=== PATIENT | male | born 1955 | race Caucasian/White ===

== ENCOUNTER 2021-02-13 14:25 | Emergency (ER) | payer OTHER, MEDICARE, SELFPAY ==
--- NOTE | ~2021-02-13 | XR_ITS ---
EXAMINATION: XR HIP, LEFT CLINICAL INFORMATION: Left hip pain. COMPARISON: None TECHNIQUE: Three views of the left hip. FINDINGS: No radiographic evidence of acute fracture subluxation. Degenerative changes with mild joint space narrowing and small marginal osteophytes. Vascular calcifications. XR/XR hip LT w PEL1V IMPRESSION: Mild osteoarthritis of the left hip without radiographic evidence of acute fracture or subluxation.
[2021-02-13 15:25] VITALS: BP 146/66; PULSE 61; RESP 20; TEMP 36.8; O2SAT 94; BMI 33.4
--- NOTE | 2021-02-13 16:03 | ED.EXTPRO ---
HPI - Extremity Problem General Chief complaint: Extremity Injury, Lower Stated complaint: L HIP INJ Time Seen by Provider: 02/13/21 15:32 Source: patient Mode of arrival: ambulatory Limitations: no limitations History of Present Illness HPI Narrative: moving things in house c/o L hip today no falls can ambulate but hurts - did not feel a pop Complaint: extremity pain Onset (ago): day(s) (1) Pain Consistency: constant Location: left and lower extremity (hip) Quality: aching Relieving factors: nothing Exacerbating factors: walking Associated symptoms: denies other symptoms Context: other (lifting when moving) Related Data Allergies Allergy/AdvReac Type Severity Reaction Status Date / Time No Known Allergies Allergy Verified 02/13/21 15:23 Review of Systems Review of Systems: Constitutional : No Fever, No Chills\ Cardiovascular : No Chest Pain, No SOB Respiratory : No Cough, No Dyspnea Gastrointestinal : No Nausea, No Vomiting, No Diarrhea, No abdominal Pain Genitourinary : No Dysuria, No Hematuria Musculoskeletal : positive joint pain, No Myalgias, No Joint Swelling Skin : No Skin lacerations, No rash Neuro : No Weakness, No Numbness PMFSH Past Medical History Attestation statement: The following information was validated with the patient. Medical History Cholecystectomy planned Diabetes HTN (hypertension) Social History Social History Smoking Status: Never smoker Advance Directives: No Advance Directives Information Provided: No Physical Exam Vital Signs: Vital Signs: Last Vital Signs Temp 98.2 F 02/13/21 15:25 Pulse 61 02/13/21 15:25 Resp 20 02/13/21 15:25 BP 146/66 H 02/13/21 15:25 Pulse Ox 94 02/13/21 15:25 Body Mass Index 33.4 Appearance: Alert. Oriented X3. No acute distress. Eyes: Pupils equal, round and reactive to light. ENT: Atraumatic Neck: Normal inspection. Neck supple. CVS: Pulses normal. Respiratory: No respiratory distress. Abdomen: Soft and non-tender. Skin: Skin warm and dry. Normal skin color. Extremities: No lower extremity edema. L hip ttp but distal NV intact, walks steady gait with cane, some limp Neuro: Oriented X 3. No motor deficit. No sensory deficit. MDM - Extremity (Nontraumatic) MDM Narrative Medical decision making narrative: 65 yo male with HTN, DM no AC therapy c/o L hip pain since trying to move things yesterday no back pain, NV intact, no falls, did not feel a pop - has a cane, can bear weight, offered lidocaine patches and flexeril he declines but will take toradol shot Discharge Plan Discharge Clinical Impression: Strain of left hip Qualifiers: Encounter type: initial encounter Qualified Code(s): S76.012A - Strain of muscle, fascia and tendon of left hip, initial encounter Patient Disposition: Home, Self-Care Instructions: Hip Pain (ED) Additional Instructions: return to ED for any worsening symptoms or concerns use cane for comfort, if this continues please call your primary care doctor for physical therapy
[2021-02-13 16:20] VITALS: BP 115/56; PULSE 56; RESP 18; TEMP 36.8; O2SAT 95
[2021-02-13] MEDS: Ketorolac Tromethamine 60 MG/2 ML VIAL IM (16:30)
== END 2021-02-13 16:37 | disposition home or self-care (01) ==
PROVIDERS: Emergency Provider Emergency Medicine; PCP Physician Assistant
DX: S76.012A Strain of muscle, fascia and tendon of left hip, initial encounter (principal); M25.552 Pain in left hip; X58.XXXA Exposure to other specified factors, initial encounter; Y93.9 Activity, unspecified; Y92.9 Unspecified place or not applicable; Y99.9 Unspecified external cause status
CPT/HCPCS: 73502; 90471; 96372; 99284; J1885

== ENCOUNTER 2021-04-19 10:47 | Emergency (ER) | payer OTHER, SELFPAY ==
--- NOTE | ~2021-04-19 | XR_ITS ---
EXAMINATION: XR RIBS, RIGHT CLINICAL INFORMATION: Injury COMPARISON: None TECHNIQUE: PA view of the chest and 4 views of the right ribs FINDINGS: Low lung volumes. Lungs are clear. No consolidation, pneumothorax, or pleural effusion. The cardiomediastinal silhouette and pulmonary vasculature are normal. Cholecystectomy clips in the right upper quadrant. Osseous structures are unremarkable. Ribs are intact. No fractures are identified. XR/XR ribs RT min 3V w CXR1V IMPRESSION: No acute cardiopulmonary process. Low lung volumes. No displaced rib fractures appreciated.
[2021-04-19 11:09] VITALS: BP 131/73; PULSE 94; RESP 18; TEMP 37.1; O2SAT 95; BMI 31.9
--- NOTE | 2021-04-19 12:05 | ED_ITS ---
HPI - General Adult General Chief complaint: General Medical Stated complaint: FALL Time Seen by Provider: 04/19/21 12:05 History of Present Illness HPI narrative: patient complains of pain to the right ribs worse with movement after of fall injury several days ago when he slipped and hit the right rib area on the edge of the tub, no other injury, no headache no head injury no neck pain no shortness of breath no difficulty breathing no back pain Related Data Allergies Allergy/AdvReac Type Severity Reaction Status Date / Time No Known Allergies Allergy Verified 02/13/21 15:23 Review of Systems Review of Systems: Positive for right rib pain Negatives are no fever no chills no dizziness no weakness no fainting no feeling faint no preceding lightheadedness no headache no head injury no neck pain no numbness weakness or tingling no shortness of breath no lacerations no other joint pains Yes all other systems are reviewed and are negative [facility] Past Medical History Source: nursing notes reviewed Medical History Cholecystectomy planned Diabetes HTN (hypertension) Social History Social History Advance Directives: Yes Advance Directives Information Provided: No Advance Directives on File: No Physical Exam Vital Signs: Vital Signs: Last Vital Signs Temp 98.8 F 04/19/21 11:09 Pulse 94 04/19/21 11:09 Resp 18 04/19/21 11:09 BP 131/73 04/19/21 11:09 Pulse Ox 95 04/19/21 11:09 Body Mass Index 31.9 General appearance no acute distress Head is normocephalic atraumatic Neck is supple and nontender The back is supple and nontender Respiratory no acute distress Lungs are clear to auscultation bilateral The right mid lateral and anterior rib area has tenderness, there is some pain when he takes a deep breath and moves in certain ways, the skin is normal there is no ecchymosis and no lacerations Extremities is full range of motion x4 Neuro no focal motor sensory deficits Course Course Course Narrative: X-ray of right ribs and chest showed no pneumothorax, no obvious displaced rib fractures and patient is well-appearing and is discharged Discharge Plan Discharge Clinical Impression: Fracture, rib Patient Disposition: Home, Self-Care Additional Instructions: x-ray did not show any obvious broken ribs, but x-ray can miss many rib fractures or cracks As pain has not improved after 5 or 6 days it is possible that you have a cracked rib not seen on x-ray Use Tylenol as needed Return to ER any time for difficulty breathing, any worse condition any worse concern Follow with primary doctor next week if not improved Interventions: ED Discharge Assessment Last Done: 04/19/21 13:26 Discharge Date/Time: 04/19/21 13:26
== END 2021-04-19 13:26 | disposition home or self-care (01) ==
PROVIDERS: Emergency Provider Emergency Medicine; PCP Physician Assistant
DX: S22.31XA Fracture of one rib, right side, initial encounter for closed fracture (principal); W18.2XXA Fall in (into) shower or empty bathtub, initial encounter; I10 Essential (primary) hypertension; E11.9 Type 2 diabetes mellitus without complications; Y93.9 Activity, unspecified; Y92.9 Unspecified place or not applicable; Y99.9 Unspecified external cause status
CPT/HCPCS: 71101; 99283

== ENCOUNTER 2022-02-05 12:05 | Emergency (ER) | payer OTHER, SELFPAY ==
[2022-02-05 12:26] VITALS: BP 122/100; PULSE 66; RESP 20; TEMP 36.3; O2SAT 96; BMI 34.0
[2022-02-05] MEDS: diazePAM 2 MG TABLET PO (14:25)
--- NOTE | 2022-02-05 14:54 | ED_ITS ---
HPI - Neck Pain/Injury General Chief Complaint: Neck Pain/Injury Stated Complaint: Neck pain Time Seen by Provider: 02/05/22 13:39 Source: patient Mode of arrival: ambulatory History of Present Illness HPI Narrative: 66-year-old male with past medical history of diabetes, hypertension, presenting to the ED complaining of right-sided neck pain radiating to right ear, right shoulder and right upper back x3 days s/p sleeping wrong and waking with pain. Reports pain worse with arm movement and neck movement. Reports associated tingling down arm. Denies known injury, trauma, fall, headache, lightheadedness/dizziness, weakness, CP/SOB. Took ibuprofen with symptomatic improvement MD complaint: neck pain Onset (ago): day(s) Related Data Previous Rx's Medication Instructions Recorded acetaminophen 500 mg tablet 500 mg PO Q6H PRN #20 tab 02/05/22 (Tylenol Extra Strength) cyclobenzaprine 5 mg tablet 5 mg PO Q8H PRN 5 Days #14 tab 02/05/22 lidocaine 5 % topical patch 1 patch TOPICAL DAILY PRN #30 ea 02/05/22 (Lidoderm) MDD remove after 12 hours naproxen 500 mg tablet 500 mg PO BID PRN 10 Days #20 tab 02/05/22 Allergies Allergy/AdvReac Type Severity Reaction Status Date / Time No Known Allergies Allergy Verified 02/13/21 15:23 Review of Systems Review of Systems: Constitutional: No Fever, No Chills, No Fatigue, No Malaise ENT/Mouth: No Ear Pain, No Nasal Congestion, No Sinus Pain, No sore throat, No Rhinorrhea, No Swallowing Difficulty Eyes: No Eye Pain, No Swelling, No Redness, No Vision Changes Cardiovascular: No Chest Pain, No SOB, No Edema, No Palpitations Respiratory: No Cough, No Sputum, No Dyspnea Gastrointestinal: No Nausea, No Vomiting, No Diarrhea, No Constipation, No Abdominal pain Genitourinary: No irregular bleeding, No Dysuria, No Urinary Frequency, No He maturia, No Urinary Incontinence, No Flank Pain Musculoskeletal: + neck/back pain, No Myalgias, No Joint Swelling Skin: No Skin Lesions, No rash Neuro: No Weakness, No Numbness, + Paresthesias, No Dizziness, No Headache Yes all other systems are reviewed and are negative Neurologic: Denies Sensory deficit (Neuro) [facility] Past Medical History Attestation statement: The following information was validated with the patient. Medical History Cholecystectomy planned Diabetes HTN (hypertension) Social History Social History Advance Directives: No Advance Directives Information Provided: No Physical Exam Vital Signs: Vital Signs: Last Vital Signs Temp 97.4 F 02/05/22 12:26 Pulse 66 02/05/22 12:26 Resp 20 02/05/22 12:26 BP 122/100 H 02/05/22 12:26 Pulse Ox 96 02/05/22 12:26 BMI result Body Mass Index 34.0 Const: General: cooperative, healthy appearing, no acute distress, alert and awake Orientation/consciousness: patient oriented x3 Limitations: no limitations HEENT: Head: Yes normal to inspection and Yes atraumatic Ears: hearing grossly normal bilaterally, external ears normal, TM's normal bilaterally and mastoids normal General nose exam: Normal external nose present Face and sinus: Yes normal facial exam Eyes: General: appearance normal, both eyes and all related structures EOM: EOMs intact bilaterally Neck: Other: No midline cervical spine tenderness/step-off or deformity. Right-sided paraspinal and right-sided trapezius muscle tenderness to palpation reproducing subjective complaint. Mastoid WNL. No mastoid tenderness. Right TM WNL. Pain with rightward movement of neck/limited from pain Neck: Yes normal visual inspection, Yes no lymphadenopathy, Yes no meningeal signs and No anterior neck swelling Resp: Effort & Inspection: normal respiratory effort and no respiratory distress Cardio: Rate: regular rate Peripheral pulses: radial pulses present : General: Yes no CVA tenderness Back/Spine/Pelvis: Other: No midline thoracic/lumbar spinous tenderness/step-off or deformity, + mild tenderness to right subscapular area Back: no CVA tenderness Skin: Rashes: no rashes Wounds: no wounds Neuro: Other: Ambulating at baseline with steady stable gait with cane. Strength intact throughout General: patient oriented x3, gait normal, tone normal, moves all extremities and no meningeal signs Gait exam (Neuro): Normal gait present Motor exam (neuro): 5/5 motor strength present throughout Sensory Exam: No Sensory deficit (Neuro) Extrem: General: Yes normal to inspection Course Course Course Narrative: BP improved with pain control MDM - Neck Pain/Injury MDM Narrative Medical decision making narrative: 66-year-old male with past medical history of diabetes, hypertension, presenting to the ED complaining of right-sided neck pain radiating to right ear, right shoulder and right upper back x3 days. On exam initially hypertensive likely from pain. NAD/nontoxic, no midline spinous tenderness throughout, physical e xam as above consistent with cervical strain/MSK pain/spasming. Low suspicion for ACS, cervical dissection, cord compression Plan: PO Valium, discussed worrisome signs and symptoms and strict return precautions Medical Records Attestation: I reviewed the patient's medical records. Lab Data Attestation: I reviewed the patient's lab results. Discharge Plan Discharge Clinical Impression: Strain of neck muscle Patient Disposition: Home, Self-Care Instructions: Cervical Strain (DC) Additional Instructions: Your pain is likely musculoskeletal Flexeril is a muscle relaxer, take at night as it makes you drowsy, do not drive, drink alcohol, or operate machinery while taking it Naproxen as an anti-inflammatory / pain medication, take with food Lidoderm patches are numbing patches, apply to painful area In addition take Tylenol at home If symptoms persist or worsen, pain becomes unbearable, you developed urinary retention or incontinence, or weakness return to the ED Prescriptions: New acetaminophen [Tylenol Extra Strength] 500 mg tablet 500 mg PO Q6H PRN (Reason: pain or fever) Qty: 20 0RF lidocaine [Lidoderm] 5 % adhesive patch,medicated 1 patch topical DAILY MDD remove after 12 hours PRN (Reason: pain) Qty: 30 0RF Rx Instructions: leave on most painful area for up to 12 hrs naproxen 500 mg tablet 500 mg PO BID PRN (Reason: pain) 10 Days Qty: 20 0RF cyclobenzaprine 5 mg tablet 5 mg PO Q8H PRN (Reason: pain (scale score 7-10)) 5 Days Qty: 14 0RF Referrals: Sulaiman Chan PA [Primary Care Provider] - 3 days
[2022-02-05 14:57] VITALS: BP 126/62
== END 2022-02-05 15:03 | disposition home or self-care (01) ==
PROVIDERS: Emergency Provider Emergency Medicine; PCP Physician Assistant
DX: S16.1XXA Strain of muscle, fascia and tendon at neck level, initial encounter (principal); M54.2 Cervicalgia; X58.XXXA Exposure to other specified factors, initial encounter; Y93.9 Activity, unspecified; Y92.9 Unspecified place or not applicable; Y99.9 Unspecified external cause status; Z79.899 Other long term (current) drug therapy
CPT/HCPCS: 99283; 99284

== ENCOUNTER 2022-03-09 12:05 | Inpatient (IN) | payer OTHER, SELFPAY ==
[2022-03-09] VITALS (7 sets, daily range): BP systolic 91–168; BP diastolic 59–111; PULSE 83–130; RESP 12–20; TEMP 36.8–37.3; O2SAT 94–96; BMI 33.3
--- NOTE | ~2022-03-09 | MR_ITS ---
EXAMINATION: MR ABDOMEN WITHOUT AND WITH CONTRAST CLINICAL INFORMATION: Liver lesion COMPARISON: CT abdomen pelvis 03/09/2022 TECHNIQUE: MRI of the abdomen before and after the IV administration of 10 mL of Gadavist was obtained using routine sequences. FINDINGS: LUNG BASES: The visualized lung bases are unremarkable. KIDNEYS AND URETERS: Unremarkable. GALLBLADDER: Surgically absent. LIVER AND BILIARY TREE: Cirrhotic morphology of the liver. No LI RADS 5 observations. Trace central intrahepatic biliary duct dilatation status post cholecystectomy with the common bile duct measuring within normal limits at 9 mm. PANCREAS: Unremarkable SPLEEN: Spleen is mildly enlarged measuring 13 cm in span. ADRENAL GLANDS: Unremarkable GASTROINTESTINAL TRACT: Unremarkable. LYMPH NODES: No lymphadenopathy. VASCULAR: Conventional hepatic arterial anatomy. Portal vein is patent. ABDOMINAL WALL: Unremarkable. OSSEOUS STRUCTURES: Unremarkable. MR/MR abdomen wo/w con IMPRESSION: Cirrhotic morphology of the liver. No LI RADS 5 observations. Sequelae of portal hypertension including mild hepatomegaly. Trace central intrahepatic biliary duct dilatation status post cholecystectomy, with the common bile duct measuring within normal limits.
--- NOTE | ~2022-03-09 | CT_ITS ---
EXAMINATION: CT ABDOMEN AND PELVIS WITHOUT CONTRAST CLINICAL INFORMATION: Diffuse abdominal pain, nausea and vomiting. COMPARISON: None. TECHNIQUE: Multidetector volumetric imaging was performed from the superior aspect of the liver through the pubic symphysis. Sagittal and coronal reformatted images were obtained on the technologist's workstation. This CT examination was performed using dose optimization techniques as appropriate, variously including the following: *Automated exposure control *Adjustment of mA and/or kV according to patient size (this includes techniques or standardized protocols for targeted exams where dose is matched to indication/reason for exam; i.e. extremities or head) *Use of iterative reconstruction technique DLP: 734 mGy-cm FINDINGS: LUNG BASES: No focal consolidation or pleural effusion. Coronary calcifications. LIVER, GALLBLADDER, AND BILIARY TREE: Cirrhotic liver with a nodular contour and nonspecific subcapsular retraction on image 16 of series 3. Evaluation for HCC is nondiagnostic in the absence of intravenous contrast. Cholecystectomy. The common bile duct measures 0.6 cm in maximum diameter. There is no intrahepatic biliary ductal dilatation. PANCREAS: Diffusely atrophic. The main pancreatic duct is nondilated. There is no peripancreatic free fluid or fat stranding. SPLEEN: Splenomegaly measuring 17.7 cm in maximum anteroposterior dimension. There is a 2.8 cm posterior splenule. ADRENAL GLANDS: Unremarkable. KIDNEYS AND URETERS: Hyperdense 1.1 cm lesion in the lateral surface of the midpole of the right kidney (3:34). No hydronephrosis or nephrolithiasis. BLADDER: Unremarkable. GASTROINTESTINAL TRACT: The stomach and the small bowel are nondilated. Normal appendix. Colonic diverticulosis. No evidence of acute diverticulitis or colitis. No bowel obstruction. ABDOMINAL WALL: No significant hernia is appreciated. LYMPH NODES: No lymphadenopathy by size criteria. VASCULAR: Atherosclerotic disease. Abdominal aorta is of normal diameter. Recanalized umbilical vein. PELVIC VISCERA: Unremarkable. OSSEOUS STRUCTURES: No acute or aggressive appearing osseous abnormalities. Multilevel thoracolumbar spondylos with prominent Schmorl's nodules. CT/CT abdomen pelvis wo con IMPRESSION: Cirrhotic liver with portal hypertension. There is a nonspecific area of capsular retraction in the right hepatic lobe. Recommend evaluation with an MR of the abdomen with and without intravenous contrast. Hyperdense lesion in the right kidney measuring 1.1 cm, likely represents a hemorrhagic or proteinaceous cyst. This could be further characterized with a renal ultrasound or the above recommended MRI. Diverticulosis but no evidence of acute diverticulitis. No bowel obstruction.
[2022-03-09 12:34] LABS: Glucose, Whole Blood 317 mg/dL (60-115)
--- NOTE | 2022-03-09 14:00 | ECG_ITS ---
Test Reason : TACHYCARDIA, ABD PAIN Blood Pressure : / mmHG Vent. Rate : 120 BPM Atrial Rate : 000 BPM P-R Int : 000 ms QRS Dur : 084 ms QT Int : 312 ms P-R-T Axes : 000 -29 021 degrees QTc Int : 440 ms Atrial fibrillation with rapid ventricular response Moderate voltage criteria for LVH, may be normal variant ( R in aVL , Verdon product ) Abnormal ECG No previous ECGs available Referred By: Magda De Leon Electronically Signed By:Alonzo Michelle
[2022-03-09] MEDS: Morphine Sulfate 4 MG/ML CARTRIDGE IVPUSH ×2 (14:50→20:30)
[2022-03-09] MEDS: 0.9 % Sodium Chloride 1,000 ML 999 ML IV ×2 (14:50→17:46)
[2022-03-09] MEDS: ondansetron HCL 4 MG/2 ML VIAL IVPUSH (14:50)
--- NOTE | 2022-03-09 15:49 | ED.ABDPAIN ---
HPI - Abdominal Pain General Chief Complaint: Abdominal Pain <Magda De LeonDENI - Last Filed: 03/09/22 19:13> Stated Complaint: FLU LIKE SX X'S 4 DAYS,IRREG HR <Magda Baltazar DENI De Leon - Last Filed: 03/09/22 19:13> Time Seen by Provider: 03/09/22 13:04 <Magda Douglasjomar De Leon CNP - Last Filed: 03/09/22 19:13> Source: patient <Magda De LeonDENI - Last Filed: 03/09/22 19:13> Mode of arrival: ambulatory <Magda De LeonDENI - Last Filed: 03/09/22 19:13> Limitations: no limitations <Magda ColoradoDENI pearl - Last Filed: 03/09/22 19:13> History of Present Illness HPI narrative: patient presents to the emergency department for evaluation of abdominal pain and acute on chronic nausea/ vomiting. Patient reports that he has chronic nausea at baseline, with poor p.o. intake, he is being followed by gastro intestinal Dr. Meenu Good from [facility]. reports that he has had multiple endoscopies, swallow studies, motility studies, colonoscopy which have all been unremarkable. He states that 2 weeks ago he was started on a new anti nausea medication, does not know the name of this, but states any time he tries to take the medication he simply throws it up. In addition he is experiencing diffuse abdominal pain. States that his symptoms have been worse over the past couple of days. Had 6 episodes of vomiting last night, does not recall the color, has had 1 episode of vomiting today. Feels he is unable to keep down any oral intake. <Magda Baltazar DENI De Leon - Last Filed: 03/09/22 19:13> Related Data Home Medications: Home Medications Medication Instructions Recorded Confirmed amlodipine 10 mg tablet 10 mg PO DAILY 03/09/22 03/09/22 aripiprazole 2 mg tablet 2 mg PO DAILY 03/09/22 03/09/22 aspirin 81 mg tablet,delayed 81 mg PO DAILY 03/09/22 03/09/22 release atorvastatin 80 mg tablet (Lipitor) 40 mg PO DAILY 03/09/22 03/09/22 buprenorphine 8 mg-naloxone 2 mg 1 tab SUBLINGUAL DAILY 03/09/22 03/09/22 sublingual tablet empagliflozin 25 mg tablet 25 mg PO DAILY 03/09/22 03/09/22 furosemide 20 mg tablet 20 mg PO DAILY 03/09/22 03/09/22 gabapentin 100 mg capsule 100 mg PO DAILY 03/09/22 03/09/22 gabapentin 100 mg capsule 200 mg PO BEDTIME 03/09/22 03/09/22 lactulose 10 gram/15 mL oral 30 ml PO Q8H PRN 03/09/22 03/09/22 solution nadolol 20 mg tablet 20 mg PO DAILY 03/09/22 03/09/22 pantoprazole 40 mg tablet,delayed 40 mg PO BID 03/09/22 03/09/22 release (Protonix) <Magda De Leon CNP - Last Filed: 03/09/22 19:13> Allergies/Adverse Reactions: Allergies Allergy/AdvReac Type Severity Reaction Status Date / Time No Known Allergies Allergy Verified 02/13/21 15:23 <Magda De Leon CNP - Last Filed: 03/09/22 19:13> Review of Systems Review of Systems Constitutional : No Weight loss, No Fever, No Chills ENT/Mouth :? No sore throat, No Rhinorrhea Eyes: No Swelling, No Redness Cardiovascular : No Chest Pain, No SOB, No Edema Respiratory : No Cough, No Sputum, No Wheezing Gastrointestinal : Positive Nausea, Positive Vomiting, no Diarrhea, positive abdominal pain, No Hematochezia, No Melena Genitourinary : No Dysuria, No Urinary Frequency, No Hematuria, No Urgency? Musculoskeletal : No joint pain, No Myalgias, No Joint Swelling Skin : No Skin Lesions, No rash Neuro : No Weakness, No Numbness, No Dizziness, No Headache Psych : No Anxiety/Panic, No Depression Heme/Lymph: No Bruising, No Lymphadenopathy Endocrine : No Polyuria, No Polydipsia <Magda De Leon CNP - Last Filed: 03/09/22 19:13> Yes all other systems are reviewed and are negative <Magda De Leon CNP - Last Filed: 03/09/22 19:13> [facility] Past Medical History Attestation statement: The following information was validated with the patient. <Magda De Leon CNP - Last Filed: 03/09/22 19:13> Source: old records reviewed <Magda De Leon CNP - Last Filed: 03/09/22 19:13> Medical History: Medical History Cholecystectomy planned Diabetes HTN (hypertension) <Magda De Leon CNP - Last Filed: 03/09/22 19:13> Social History Social History: Social History Advance Directives: Yes Advance Directives Information Provided: No Advance Directives on File: No <Magda De Leon CNP - Last Filed: 03/09/22 19:13> Physical Exam ED Vital Signs: Vital Signs - 24 hr 03/09/22 12:16 03/09/22 12:24 03/09/22 16:04 Temperature 98.5 F 99.2 F 99.1 F Pulse Rate 129 H 109 H 124 H Respiratory Rate 20 17 15 Blood Pressure 132/85 123/97 H 91/59 L Pulse Oximetry 96 94 95 03/09/22 18:48 03/09/22 19:33 Temperature 98.3 F Pulse Rate 107 H Respiratory Rate 15 18 Blood Pressure 168/111 H 152/97 H Pulse Oximetry 96 BMI result Body Mass Index 33.3 Vital signs have been reviewed as normal and appeared to be correct. Blood pressure normal.? tachycardia.? Respiration rate normal. Temperature normal.? Oxygen saturation normal. <Magda De Leon CNP - Last Filed: 03/09/22 19:13> Appearance: Alert.?Oriented to person, place and time. No acute distress.?Normal affect. Eyes: Pupils equal, round and reactive to light.? mild yellowing of the sclera ENT: Pharynx normal.?? Neck: Normal inspection.? Neck supple.?? CVS: S1 and S2 are present, pansystolic murmur, tachycardia.? Pulses normal. no JVD?? Respiratory: No respiratory distress.? Lung sounds clear to auscultation bilaterally?? Abdomen: Soft and with diffuse tenderness, notably more tender in the left lower quadrant. Normoactive bowel sounds. No pulsatile mass.?? Skin: Skin warm and dry.? appear slightly jaundiced Extremities: No lower extremity edema.? No calf ttp? Neuro: Moves all extremities spontaneously. Sensation intact bilaterally. No focal neuro deficits. Ambulates with normal steady gait. Pansystolic murmur <Magda De Leon CNP - Last Filed: 03/09/22 19:13> Course Course Course Narrative: patient is a 66-year-old male with a past medical history of hypertension, Type 2 diabetes insulin dependent, chronic nausea, liver disease , states he has a history hepatitis B, he is presenting for evaluation of diffuse abdominal pain and worsening of his chronic nausea. reports being followed by GI dr Meenu Good, and regarding heart murmur, has faculty research assistant through [place] Dr. Baxter, reports he is scheduled to have an echocardiogram March 15, and a nuclear stress test in April. Will obtain CBC to evaluate for leukocytosis/ anemia, CMP and lipase to evaluate for abnormal electrolytes /abnormal renal function/ abnormal hepatic/biliary function, EKG and troponin to evaluate for ischemia/ACS. Urinalysis to evaluate for infection <Magda De Leon CNP - Last Filed: 03/09/22 19:13> Reevaluation(s) Reevaluation #1: CBC reveals a mild leukocytosis 11.8, CMP is overall unremarkable, lipase is normal. urinalysis without sign of infection Troponin 47.7, reviewed EKG at this time shows atrial fibrillation with rapid ventricular response, patient denies any known history of atrial fibrillation in the past. Currently he reports no significant improvement in his symptoms, continues to feel nauseous with vague abdominal pain. Last noted blood pressure at 1600 of 91/59, was not made aware of this previously, current blood pressure 152/112. POC glucose 317, has DM, will obtain acetone, in addition to lactic acid and blood cultures given hypotension and tachycardia, Delta trop ordered for 193, Cardizem 10 mg IV push in addition to 60mg PO, additional saline 1 L IV fluids, CHADS-VASC score of 2. CT of the abdomen reveals a cirrhotic liver with portal hypertension, nonspecific area capsular retraction in the right hepatic lobe with recommendation for MRI of the abdomen with and without IV contrast in addition to a hyperdense lesion in the right kidney which may represent a cyst. <Magda De Leon CNP - Last Filed: 03/09/22 19:13> Time: 17:22 <Magda Baltazar DENI De Leon - Last Filed: 03/09/22 19:13> Reevaluation #2: spoke with hospitalist Dr. Avila for admission to medicine service for new onset atrial fibrillation with RVR, cirrhosis, intractable nausea and vomiting, advises that patient will be seen by night hospitalist. advised ED attending Dr. Baugh about patient as well. Current heart rate at this time in the 80s, appears to remain in atrial fibrillation. Patient updated on plan of care and is agreeable. <Magdaradames De Leon CNP - Last Filed: 03/09/22 19:13> Time: 18:15 <Magdaradames De Leon CNP - Last Filed: 03/09/22 19:13> MDM - Abdominal Pain Medical Records Attestation: I reviewed the patient's medical records. <Magda De Leon CNP - Last Filed: 03/09/22 19:13> Lab Data Attestation: I reviewed the patient's lab results. <Magdaradames De Leon CNP - Last Filed: 03/09/22 19:13> Result diagrams: : 03/09/22 16:31 03/09/22 16:31 <Magdaradames De Leon CNP - Last Filed: 03/09/22 19:13> Labs: Lab Results 03/09/22 03/09/22 03/09/22 Range/Units 12:21 15:36 16:08 WBC (4.8-10.8) X10*3/uL RBC (4.60-5.80) X10*6/uL Hgb (14.0-18.0) g/dl Hct (42.0-52.0) % MCV (80.0-98.0) fL MCH (27.0-33.0) pg MCHC (31.0-36.0) g/dl RDW (11.0-16.0) % Plt Count (160-400) X10*3/uL MPV (9.4-12.4) fL Immature Gran % (Auto) (0.0-0.4) % Neut % (Auto) (45-73) % Lymph % (Auto) (20-40) % Dougherty % (Auto) (2-11) % Eos % (Auto) (0-4) % Baso % (Auto) (0-2) % Lymph # (Auto) (1.2-4.9) X10*3/uL Dougherty # (Auto) (0.1-1.2) X10*3/uL Eos # (Auto) (0.0-0.4) X10*3/uL Baso # (Auto) (0.0-0.2) X10*3/uL Abs Immat Gran (auto) (0.00-0.03) X10*3/uL Absolute Neuts (auto) (2.0-8.3) x10*3/uL Absolute Nucleated RBC (0.0-0.012) X10*3/uL Nucleated RBC % (auto) (0.0-0.2) /100WBC Sodium (135-145) mmol/L Potassium (3.3-5.1) mmol/L Chloride (96-108) mmol/L Carbon Dioxide (22-29) mmol/L Anion Gap (12-20) BUN (9-16) mg/dL Creatinine (0.5-1.4) mg/dL Estim Creat Clear Calc Estimated GFR POC Glucose 317 H (60-115) mg/dL Random Glucose (60-115) mg/dL Lactic Acid (0.5-2.0) mmol/L Calcium (8.4-10.2) mg/dL Magnesium (1.6-2.6) mg/dL Total Bilirubin (0.0-1.0) mg/dL AST (5-37) U/L ALT (0-40) U/L Alkaline Phosphatase (39-117) U/L Troponin I High Sens (<3.5-35.0) ng/L Total Protein (6.5-8.0) g/dL Albumin (3.5-5.0) g/dL Lipase (8-78) U/L Urine Color YELLOW Urine Appearance CLEAR Urine pH 5.5 (5.0-8.0) Ur Specific [place] 1.025 (1.005-1.025) Urine Protein 1+ H (NEG-TRACE) MG/DL Urine Glucose (UA) >=1000 H (NEG) MG/DL Urine Ketones >=80 (NEG) MG/DL Urine Blood TRACE (NEG) Urine Nitrite NEG (NEG) Ur Leukocyte Esterase NEG (NEG) Urine RBC 0-2 (0) /HPF Urine WBC 0-2 (0-4) /HPF Ur Squamous Epith Cells NONE /LPF Urine Bacteria NONE /LPF Acetone, Qual (Negative) COVID-19 (CECIL) Negative (Negative) COVID-19 Clin Com See Note 03/09/22 03/09/22 03/09/22 Range/Units 16:31 16:31 16:31 WBC 11.8 H (4.8-10.8) X10*3/uL RBC 6.09 H (4.60-5.80) X10*6/uL Hgb 16.2 (14.0-18.0) g/dl Hct 49.5 (42.0-52.0) % MCV 81.3 (80.0-98.0) fL MCH 26.6 L (27.0-33.0) pg MCHC 32.7 (31.0-36.0) g/dl RDW 14.2 (11.0-16.0) % Plt Count 188 (160-400) X10*3/uL MPV 9.8 (9.4-12.4) fL Immature Gran % (Auto) 0.3 (0.0-0.4) % Neut % (Auto) 68.8 (45-73) % Lymph % (Auto) 22.6 (20-40) % Dougherty % (Auto) 6.2 (2-11) % Eos % (Auto) 1.9 (0-4) % Baso % (Auto) 0.2 (0-2) % Lymph # (Auto) 2.7 (1.2-4.9) X10*3/uL Dougherty # (Auto) 0.7 (0.1-1.2) X10*3/uL Eos # (Auto) 0.2 (0.0-0.4) X10*3/uL Baso # (Auto) 0.0 (0.0-0.2) X10*3/uL Abs Immat Gran (auto) 0.04 H (0.00-0.03) X10*3/uL Absolute Neuts (auto) 8.1 (2.0-8.3) x10*3/uL Absolute Nucleated RBC 0.000 (0.0-0.012) X10*3/uL Nucleated RBC % (auto) 0.0 (0.0-0.2) /100WBC Sodium 138 (135-145) mmol/L Potassium 4.7 (3.3-5.1) mmol/L Chloride 103 (96-108) mmol/L Carbon Dioxide 25 (22-29) mmol/L Anion Gap 15 (12-20) BUN 12 (9-16) mg/dL Creatinine 0.81 (0.5-1.4) mg/dL Estim Creat Clear Calc 99.7 Estimated GFR > 60 POC Glucose (60-115) mg/dL Random Glucose 295 H (60-115) mg/dL Lactic Acid (0.5-2.0) mmol/L Calcium 9.1 (8.4-10.2) mg/dL Magnesium 1.8 (1.6-2.6) mg/dL Total Bilirubin 2.1 H (0.0-1.0) mg/dL AST 20 (5-37) U/L ALT 29 (0-40) U/L Alkaline Phosphatase 100 (39-117) U/L Troponin I High Sens 47.7 H (<3.5-35.0) ng/L Total Protein 6.7 (6.5-8.0) g/dL Albumin 3.5 (3.5-5.0) g/dL Lipase 14 (8-78) U/L Urine Color Urine Appearance Urine pH (5.0-8.0) Ur Specific Cam[place] (1.005-1.025) Urine Protein (NEG-TRACE) MG/DL Urine Glucose (UA) (NEG) MG/DL Urine Ketones (NEG) MG/DL Urine Blood (NEG) Urine Nitrite (NEG) Ur Leukocyte Esterase (NEG) Urine RBC (0) /HPF Urine WBC (0-4) /HPF Ur Squamous Epith Cells /LPF Urine Bacteria /LPF Acetone, Qual (Negative) COVID-19 (CECIL) (Negative) COVID-19 Clin Com 03/09/22 03/09/22 Range/Units 18:32 18:32 WBC (4.8-10.8) X10*3/uL RBC (4.60-5.80) X10*6/uL Hgb (14.0-18.0) g/dl Hct (42.0-52.0) % MCV (80.0-98.0) fL MCH (27.0-33.0) pg MCHC (31.0-36.0) g/dl RDW (11.0-16.0) % Plt Count (160-400) X10*3/uL MPV (9.4-12.4) fL Immature Gran % (Auto) (0.0-0.4) % Neut % (Auto) (45-73) % Lymph % (Auto) (20-40) % Dougherty % (Auto) (2-11) % Eos % (Auto) (0-4) % Baso % (Auto) (0-2) % Lymph # (Auto) (1.2-4.9) X10*3/uL Dougherty # (Auto) (0.1-1.2) X10*3/uL Eos # (Auto) (0.0-0.4) X10*3/uL Baso # (Auto) (0.0-0.2) X10*3/uL Abs Immat Gran (auto) (0.00-0.03) X10*3/uL Absolute Neuts (auto) (2.0-8.3) x10*3/uL Absolute Nucleated RBC (0.0-0.012) X10*3/uL Nucleated RBC % (auto) (0.0-0.2) /100WBC Sodium (135-145) mmol/L Potassium (3.3-5.1) mmol/L Chloride (96-108) mmol/L Carbon Dioxide (22-29) mmol/L Anion Gap (12-20) BUN (9-16) mg/dL Creatinine (0.5-1.4) mg/dL Estim Creat Clear Calc Estimated GFR POC Glucose (60-115) mg/dL Random Glucose (60-115) mg/dL Lactic Acid 1.9 (0.5-2.0) mmol/L Calcium (8.4-10.2) mg/dL Magnesium (1.6-2.6) mg/dL Total Bilirubin (0.0-1.0) mg/dL AST (5-37) U/L ALT (0-40) U/L Alkaline Phosphatase (39-117) U/L Troponin I High Sens (<3.5-35.0) ng/L Total Protein (6.5-8.0) g/dL Albumin (3.5-5.0) g/dL Lipase (8-78) U/L Urine Color Urine Appearance Urine pH (5.0-8.0) Ur Specific [place] (1.005-1.025) Urine Protein (NEG-TRACE) MG/DL Urine Glucose (UA) (NEG) MG/DL Urine Ketones (NEG) MG/DL Urine Blood (NEG) Urine Nitrite (NEG) Ur Leukocyte Esterase (NEG) Urine RBC (0) /HPF Urine WBC (0-4) /HPF Ur Squamous Epith Cells /LPF Urine Bacteria /LPF Acetone, Qual Negative (Negative) COVID-19 (CECIL) (Negative) COVID-19 Clin Com <Magda De Leon CNP - Last Filed: 03/09/22 19:13> Imaging Data CT scan - abdomen: Radiologist's impression: CT/CT abdomen pelvis wo con IMPRESSION: Cirrhotic liver with portal hypertension. There is a nonspecific area of capsular retraction in the right hepatic lobe. Recommend evaluation with an MR of the abdomen with and without intravenous contrast. ? Hyperdense lesion in the right kidney measuring 1.1 cm, likely represents a hemorrhagic or proteinaceous cyst. This could be further characterized with a renal ultrasound or the above recommended MRI. ? Diverticulosis but no evidence of acute diverticulitis. No bowel obstruction. <Magda De Leon CNP - Last Filed: 03/09/22 19:13> ECG Data Attestation: I personally reviewed and interpreted this ECG as follows: <Magda De Leon CNP - Last Filed: 03/09/22 19:13> ECG interpretation date: 03/09/22 <Magda De Leon CNP - Last Filed: 03/09/22 19:13> ECG interpretation time: 17:22 <Magda De Leon CNP - Last Filed: 03/09/22 19:13> Prior ECG tracings: not available for review <Magda De Leon CNP - Last Filed: 03/09/22 19:13> Interpretation: Rate: 120 Rhythm:? atrial fibrillation with RVR Normal QRS complex.?? ST T wave :?? no ST elevation, no ST depression, no T-wave inversion qTC: 440 prior studies:? none available for review The study has been interpreted contemporaneously by me. <Magda De Leon CNP - Last Filed: 03/09/22 19:13> Critical Care Time Critical Care Time Critical Care Time: Yes <Magda De Leon CNP - Last Filed: 03/09/22 19:13> Total Critical Care Time: 30 <Magda De Leon CNP - Last Filed: 03/09/22 19:13> Attestation: I personally attest to this time spent taking care of the patient <Magda De Leon CNP - Last Filed: 03/09/22 19:13> Discharge Plan Discharge Clinical Impression: Atrial fibrillation with rapid ventricular response, Cirrhosis, Intractable nausea and vomiting <Magda De Leon CNP - Last Filed: 03/09/22 19:13> Patient Disposition: Admitted As Inpatient <Magda De Leon CNP - Last Filed: 03/09/22 19:13>
[2022-03-09 16:10] LABS: COVID-19 Test Negative (Negative)
[2022-03-09 16:19] LABS: Appearance Urine CLEAR; Color Urine YELLOW; Glucose Urine UA >=1000 MG/DL (NEG); Leukocyte Esterase Urine NEG (NEG); Nitrite Urine NEG (NEG); PH 5.5 (5.0-8.0); Specific Gravity - Urine 1.025 (1.005-1.025); UACC Culture Trigger NO; Urine Blood TRACE (NEG); Urine Ketones >=80 MG/DL (NEG); Urine Protein 1+ MG/DL (NEG-TRACE)
[2022-03-09 16:34] LABS: MANUAL DIFF FLAG NO
[2022-03-09 16:36] LABS: Basophils Percent Auto 0.2 % (0-2); Eosinophils Absolute Auto 0.2 X10*3/uL (0.0-0.4); Eosinophils Percent Auto 1.9 % (0-4); Hematocrit 49.5 % (42.0-52.0); Hemoglobin 16.2 g/dl (14.0-18.0); Imm Gran Abs Auto 0.04 X10*3/uL (0.00-0.03); Imm Gran Pct Auto 0.3 % (0.0-0.4); Lymphocytes Absolute Auto 2.7 X10*3/uL (1.2-4.9); Lymphocytes Percent Auto 22.6 % (20-40); Mean Corpuscular HGB Conc 32.7 g/dl (31.0-36.0); Mean Corpuscular Hemoglobin 26.6 pg (27.0-33.0); Mean Corpuscular Volume 81.3 fL (80.0-98.0); Mean Platelet Volume 9.8 fL (9.4-12.4); Monocytes Absolute Auto 0.7 X10*3/uL (0.1-1.2); Monocytes Percent Auto 6.2 % (2-11); Neutrophils Absolute Auto 8.1 x10*3/uL (2.0-8.3); Neutrophils Percent Auto 68.8 % (45-73); Platelet Count 188 X10*3/uL (160-400); Red Blood Count 6.09 X10*6/uL (4.60-5.80); Red Cell Distribution Width 14.2 % (11.0-16.0); White Blood Count 11.8 X10*3/uL (4.8-10.8)
[2022-03-09 16:45] LABS: RBC Urine 0-2 /HPF (0); WBC Urine 0-2 /HPF (0-4)
[2022-03-09 16:56] LABS: Alanine Aminotransferase 29 U/L (0-40); Albumin Level 3.5 g/dL (3.5-5.0); Alkaline Phosphatase 100 U/L (39-117); Anion Gap 15 (12-20); Aspartate Amino Transferase 20 U/L (5-37); Bilirubin Total 2.1 mg/dL (0.0-1.0); Blood Urea Nitrogen 12 mg/dL (9-16); Calcium 9.1 mg/dL (8.4-10.2); Carbon Dioxide 25 mmol/L (22-29); Chloride 103 mmol/L (96-108); Creatinine Clr Calc Pharmacy 99.7; Estimated Glomerular Filt Rate > 60; Glucose Random 295 mg/dL (60-115); Lipase 14 U/L (8-78); Magnesium 1.8 mg/dL (1.6-2.6); Potassium 4.7 mmol/L (3.3-5.1); Sodium 138 mmol/L (135-145); Total Protein 6.7 g/dL (6.5-8.0)
[2022-03-09 17:00] LABS: Troponin-I High Sensitivity 47.7 ng/L (<3.5-35.0)
[2022-03-09] MEDS: dilTIAZem HCL 50 MG/10 ML VIAL 10 MG IVPUSH (17:46)
[2022-03-09] MEDS: dilTIAZem HCL 60 MG TABLET PO (18:15)
--- NOTE | 2022-03-09 18:48 | PHA.MEDREC ---
Pharmacy Consult ? Medication Reconciliation Pharmacy has completed the medication reconciliation.
[2022-03-09 18:49] LABS: Acetone, serum QL Negative (Negative)
[2022-03-09 18:50] LABS: Lactic Acid 1.9 mmol/L (0.5-2.0)
--- NOTE | 2022-03-09 19:53 | PC.NURSE ---
pt a&ox3, vss, pt c/o 04/24 abd pain - ED provider notified. labs drawn.
--- NOTE | 2022-03-09 19:56 | PM.IMHP ---
History of Present Illness Date of Service: 03/09/22 Chief Complaint: nausea/vomiting /abdominal pain 66-year-old male with a past medical history of hypertension, hyperlipidemia, diabetes, Liver cirrhosis, opiate dependence, GERD,chronic abdominal pain with extensive workup; presented to the hospital today with a chief complaint of nausea vomiting and abdominal pain. Patient reports that he has been having abdominal pain for long time but over the past 2 weeks he has been gradually worsening; ulcer with nausea and vomiting; no significant improvement with anti nausea medication; abdominal pain is diffuse; had multiple episodes of vomiting last night. Denies any blood in the vomitus. Denies any fever chills cough or sputum production. Denies any chest pain or palpitations. Review of all other systems is negative except mentioned above ER course: Per ER team patient noted to have diffuse abdominal tenderness; no guarding no rigidity; CT abdomen showed no acute intra-abdominal process but noted to have liver cirrhosis and the question right hepatic lobe lesion as well as right kidney lesion; lipase within normal limits; liver panel within normal limits except for mildly elevated DVT; troponin elevated to 47.7; repeat troponin pending; EKG nonischemic; ER team mentioned that patient was noted to have new onset AFib with rapid ventricular response- given IV diltiazem with improvement in heart rate; admitted to the hospital for further management. [facility] Medical History Cholecystectomy planned Diabetes HTN (hypertension) Social History Advance Directives: Yes Advance Directives Information Provided: No Advance Directives on File: No Meds Allergies Allergy/AdvReac Type Severity Reaction Status Date / Time No Known Allergies Allergy Verified 02/13/21 15:23 Active Medications: Current Medications Acetaminophen (Acetaminophen 325 Mg Tablet) 650 mg PO Q6H PRN PRN Reason: Pain, Mild (Pain Scale 1-3) Dextrose (Dextrose 50 % 25 Gm/50 Ml Syringe) 25 gm IVPUSH Q15M PRN; Protocol PRN Reason: per Hypoglycemia Standing Ord. Diltiazem HCl (Diltiazem Hcl 30 Mg Tablet) 30 mg PO QID JASPER; Protocol Glucose (Glucose Gel 15 Gm Gel..Gram.) 15 gm PO Q15M PRN; Protocol PRN Reason: per Hypoglycemia Standing Ord. Heparin Sodium (Porcine) (Heparin Sodium,Porcine 5,000 Unit/Ml Vial) 5,000 unit SUBCUT Q8H [facility] Insulin Human Lispro (Insulin Lispro 100 Unit/Ml 3 Ml Vial) 0 unit SUBCUT QIDACHS [facility]; Protocol Melatonin (Melatonin 3 Mg Tablet) 6 mg PO BEDTIME PRN PRN Reason: Insomnia Ondansetron HCl (Ondansetron Hcl 4 Mg/2 Ml Vial) 4 mg IVPUSH Q8H PRN PRN Reason: Nausea and Vomiting Pharmacy Consult (Consult Rx Perform Med Rec) 1 each MISCELLANE ONCE PRN PRN Reason: Consult order Senna (Sennosides 8.6 Mg Tablet) 17.2 mg PO BEDTIME PRN PRN Reason: Constipation Sodium Chloride (0.9 % Sodium Chloride Flush 3 Ml Syringe) 3 ml IVFLUSH QSHIFT [facility] Home Medications Medication Instructions Recorded Confirmed Last Taken Type amlodipine 10 mg tablet 10 mg PO DAILY 03/09/22 03/09/22 Unknown History aripiprazole 2 mg tablet 2 mg PO DAILY 03/09/22 03/09/22 Unknown History aspirin 81 mg tablet,delayed 81 mg PO DAILY 03/09/22 03/09/22 03/09/22 History release atorvastatin 80 mg tablet (Lipitor) 40 mg PO DAILY 03/09/22 03/09/22 Unknown History buprenorphine 8 mg-naloxone 2 mg 1 tab SUBLINGUAL DAILY 03/09/22 03/09/22 Unknown History sublingual tablet empagliflozin 25 mg tablet 25 mg PO DAILY 03/09/22 03/09/22 Unknown History furosemide 20 mg tablet 20 mg PO DAILY 03/09/22 03/09/22 Unknown History gabapentin 100 mg capsule 100 mg PO DAILY 03/09/22 03/09/22 Unknown History gabapentin 100 mg capsule 200 mg PO BEDTIME 03/09/22 03/09/22 Unknown History lactulose 10 gram/15 mL oral 30 ml PO Q8H PRN 03/09/22 03/09/22 Unknown History solution nadolol 20 mg tablet 20 mg PO DAILY 03/09/22 03/09/22 Unknown History pantoprazole 40 mg tablet,delayed 40 mg PO BID 03/09/22 03/09/22 Unknown History release (Protonix) Physical Exam Vital Signs and Narrative: Vital Signs: Last Vital Signs Temp 98.3 F 03/09/22 18:48 Pulse 107 H 03/09/22 19:33 Resp 18 03/09/22 19:33 BP 152/97 H 03/09/22 19:33 Pulse Ox 96 03/09/22 18:48 BMI result Body Mass Index 33.3 Gen: Appears be in no acute distress HEENT: NCAT, Moist mucosa. Pulmonary: Vesicular breath sounds, fair air entry CVS: Normal S1-S2 Abdomen: BS+, Soft, Mildly tender diffusely Extremities: Warm well perfused Neuro: Alert and awake. Results Labs CBC and Chem 7: 03/09/22 16:31 03/09/22 16:31 Labs: Laboratory Results - last 24 hr 03/09/22 03/09/22 03/09/22 12:21 15:36 16:08 MCV MCH MCHC RDW Plt Count MPV Immature Gran % (Auto) Neut % (Auto) Lymph % (Auto) Fountain % (Auto) Eos % (Auto) Baso % (Auto) Lymph # (Auto) Fountain # (Auto) Eos # (Auto) Baso # (Auto) Abs Immat Gran (auto) Absolute Neuts (auto) Absolute Nucleated RBC Nucleated RBC % (auto) Anion Gap Estim Creat Clear Calc Estimated GFR POC Glucose 317 H Random Glucose Lactic Acid Calcium Magnesium Total Bilirubin AST ALT Alkaline Phosphatase Troponin I High Sens Total Protein Albumin Lipase Urine Color YELLOW Urine Appearance CLEAR Urine pH 5.5 Ur Specific [place] 1.025 Urine Protein 1+ H Urine Glucose (UA) >=1000 H Urine Ketones >=80 Urine Blood TRACE Urine Nitrite NEG Ur Leukocyte Esterase NEG Urine RBC 0-2 Urine WBC 0-2 Ur Squamous Epith Cells NONE Urine Bacteria NONE Acetone, Qual COVID-19 (CECIL) Negative COVID-19 Clin Com See Note 03/09/22 03/09/22 03/09/22 16:31 16:31 16:31 MCV 81.3 MCH 26.6 L MCHC 32.7 RDW 14.2 Plt Count 188 MPV 9.8 Immature Gran % (Auto) 0.3 Neut % (Auto) 68.8 Lymph % (Auto) 22.6 Fountain % (Auto) 6.2 Eos % (Auto) 1.9 Baso % (Auto) 0.2 Lymph # (Auto) 2.7 Fountain # (Auto) 0.7 Eos # (Auto) 0.2 Baso # (Auto) 0.0 Abs Immat Gran (auto) 0.04 H Absolute Neuts (auto) 8.1 Absolute Nucleated RBC 0.000 Nucleated RBC % (auto) 0.0 Anion Gap 15 Estim Creat Clear Calc 99.7 Estimated GFR > 60 POC Glucose Random Glucose 295 H Lactic Acid Calcium 9.1 Magnesium 1.8 Total Bilirubin 2.1 H AST 20 ALT 29 Alkaline Phosphatase 100 Troponin I High Sens 47.7 H Total Protein 6.7 Albumin 3.5 Lipase 14 Urine Color Urine Appearance Urine pH Ur Specific [place] Urine Protein Urine Glucose (UA) Urine Ketones Urine Blood Urine Nitrite Ur Leukocyte Esterase Urine RBC Urine WBC Ur Squamous Epith Cells Urine Bacteria Acetone, Qual COVID-19 (CECIL) COVID-19 [facility] 03/09/22 03/09/22 18:32 18:32 MCV MCH MCHC RDW Plt Count MPV Immature Gran % (Auto) Neut % (Auto) Lymph % (Auto) Fountain % (Auto) Eos % (Auto) Baso % (Auto) Lymph # (Auto) Fountain # (Auto) Eos # (Auto) Baso # (Auto) Abs Immat Gran (auto) Absolute Neuts (auto) Absolute Nucleated RBC Nucleated RBC % (auto) Anion Gap Estim Creat Clear Calc Estimated GFR POC Glucose Random Glucose Lactic Acid 1.9 Calcium Magnesium Total Bilirubin AST ALT Alkaline Phosphatase Troponin I High Sens Total Protein Albumin Lipase Urine Color Urine Appearance Urine pH Ur Specific [place] Urine Protein Urine Glucose (UA) Urine Ketones Urine Blood Urine Nitrite Ur Leukocyte Esterase Urine RBC Urine WBC Ur Squamous Epith Cells Urine Bacteria Acetone, Qual Negative COVID-19 (CECIL) COVID-19 [facility] Radiologist's Impressions: Impressions Abdomen/Pelvis CT 03/09/22 15:17 IMPRESSION: Cirrhotic liver with portal hypertension. There is a nonspecific area of capsular retraction in the right hepatic lobe. Recommend evaluation with an MR of the abdomen with and without intravenous contrast. Hyperdense lesion in the right kidney measuring 1.1 cm, likely represents a hemorrhagic or proteinaceous cyst. This could be further characterized with a renal ultrasound or the above recommended MRI. Diverticulosis but no evidence of acute diverticulitis. No bowel obstruction. Assessment and Plan (1) Atrial fibrillation with rapid ventricular response: Status: Acute (2) Cirrhosis: Status: Acute (3) Intractable nausea and vomiting: Status: Acute Plan 66-year-old male with a past medical history of hypertension, hyperlipidemia, diabetes, Liver cirrhosis, opiate dependence, GERD,chronic abdominal pain with extensive workup; presented to the hospital today with a chief complaint of nausea vomiting and abdominal pain. nausea/vomiting /abdominal pain: Acute on chronic. Supportive care Zofran p.r.n. Pain control Gastroenterology follow-up Question right hepatic lobe lesion: Gastroenterology consulted For further recommendations. Renal lesion: Recommended nephrology follow-up. New onset AFib with rapid ventricular response: Patient heart rate was in 120s-> improved after IV diltiazem. Will give the patient on p.o. diltiazem 30 Q 6 Cardiology consult for further recommendations Will obtain echocardiogram Telemetry Elevated troponins: Patient denies any chest pain. EKG nonischemic. Likely demand in the setting of rapid ventricular response. Cycle cardiac enzymes. History of diabetes: Insulin sliding scale History of opiate dependence: Patient on Suboxone. Addiction Medicine consult. History of GERD: Continue home PPI DVT prophylaxis: Subcu heparin Code status: Full code Quality Stroke Does the patient have a stroke diagnosis?: No VTE Prior VTE?: No VTE Risk Level:: Medical - moderate - high VTE Device Contraindication: Treatment Not Indicated VTE Drug Contraindication: N/A - Med Ordered
[2022-03-09 20:14] LABS: Troponin-I High Sensitivity 42.5 ng/L (<3.5-35.0)
[2022-03-09] MEDS: Heparin Sodium,Porcine 5,000 UNIT/ML VIAL 5000 UNIT SUBCUT (20:31)
--- NOTE | 2022-03-09 20:31 | PC.NURSE ---
medicated per provider order. pt c/o 04/24 abd pain.
[2022-03-09] MEDS: dilTIAZem HCL 30 MG TABLET PO (22:54)
[2022-03-09] MEDS: Gabapentin 100 MG CAPSULE 200 MG PO (22:54)
[2022-03-10] VITALS: BP 126/90; PULSE 101; RESP 16; TEMP 37; O2SAT 95
--- NOTE | 2022-03-10 02:15 | PC.NURSE ---
pt requesting sleep medication, went to medicate pt w prn melatonin, pt sleeping, held IV flush to allow pt to sleep.
[2022-03-10] MEDS: Melatonin 3 MG TABLET 6 MG PO (03:29)
[2022-03-10 03:39] LABS: Glucose, Whole Blood 250 mg/dL (60-115)
[2022-03-10] MEDS: HYDROmorphone HCl 1 MG/ML SYRINGE 0.6 MG IVPUSH (03:49)
--- NOTE | 2022-03-10 03:54 | PC.NURSE ---
pt medicated for pain management. Will continue to monitor.
--- NOTE | 2022-03-10 05:19 | PC.NURSE ---
pt is sleeping at this time. no sign of distress.
[2022-03-10 06:00] VITALS: BP 142/80; PULSE 81; RESP 16; TEMP 36.8; O2SAT 94
--- NOTE | 2022-03-10 07:00 | CA_ITS ---
Transthoracic Echocardiogram Patient (Last, First, Middle): Parent, Asim, Gender: Male Date of : 1955 Age: 66 Procedure Date: 03/10/2022 Procedure Type: Transthoracic Echocardiogram Location: ER Height: 172.72 cm Weight: 99.34 kg BSA: 2.12 m2 Heart Rate: bpm BP: 142 / 80 mmHg President [employer]: [employer] Referring MD: Braden Oliva MD Warehouse Shipper: Alonzo Michelle MD Symptoms: new onset AFib Study Quality: Fair/contrast Conclusions: - Normal left ventricular size, thickness, and systolic function. The visually estimated ejection fraction is between 65-70%. - E/E prime ratio is >15, consistent with elevated filling pressures. - The left atrium is mildly dilated. - There is mild aortic valve stenosis. Findings Procedure Information Contrast agent, definity, is being given per protocol without apparent complications. Left Ventricle Normal left ventricular size, thickness, and systolic function. The visually estimated ejection fraction is between 65-70%. There is no evidence of regional wall motion abnormalities. Abnormal diastolic function is noted. Spectral Doppler is indicative of a pseudonormal filling pattern. E/E prime ratio is >15, consistent with elevated filling pressures. Right Ventricle Normal right ventricular cavity size and systolic function. Atria The left atrium is mildly dilated. The right atrium is normal in size. Aortic Valve There is mild calcification of the aortic valve. There is mild aortic valve stenosis. There is no aortic valve regurgitation. Likely trileaflet valve. Mitral Valve The mitral valve appears normal. There is mild mitral annular calcification. There is no mitral valve regurgitation. There is no mitral valve stenosis. Pulmonic Valve The pulmonic valve is likely normal. Tricuspid Valve Normal tricuspid valve structure and function. There is trace tricuspid valve regurgitation. Normal right atrial pressure. There is no evidence of pulmonary hypertension. Great Vessels All visible segments of the aorta are normal in size. The visualized portions of the pulmonary artery and branches are normal. Venous The inferior vena cava is normal in size and collapses greater than 50% with inspiration. Pericardium/Pleural There is no evidence of pericardial effusion. Prior Study Comparison No prior study available for comparison. Measurements 2D Linear Measurements IVSd: 1.01 0.6-0.9/0.6-1.0 cm LVIDd: 4.47 3.9-5.3/4.2-5.9 cm LVIDd Index: 2.11 2.4-3.2/2.2-3.1 cm/m2 LVIDs: 1.88 2.0-3.6 cm LVPWd: 1.03 0.7-1.1 cm LA Diam: 4.20 2.7-3.8/3.0-4.0 cm LAIDs Index: 1.98 1.5-2.3 cm/m2 LV Mass: 194.04 67-162/88-224 g LV Mass Index: 91.53 43-95/49-115 g/m2 LVOT Diam: 2.20 3.0+(-)1.3 cm Mitral Valve MV Pk E: 0.89 MV PK A: 0.56 MV Decel Time: 370.00 E/A: 1.60 E'Lateral: 5.33 E'Medial: 3.59 E/E' Med: 24.80 E/E' Lat: 16.70 PHT: 108.00 MVA PHT: 2.04 Decel [place]: 2.41 Aortic Valve AoV Pk Boy: 2.55 AoV Mn Boy: 1.72 AoV VTI: 0.51 AoV Pk Grad: 26.00 Aov Mn Grad: 14.00 JEREMY Cont.VTI: 1.90 LVOT LVOT Pk Boy: 1.14 LVOT Mn Boy: 0.90 LVOT VTI: 0.25 LVOT Pk Grad: 5.00 LVOT Mn Grad: 4.00 LVOT Diam: 2.20 LVOT Area: 3.80 Diastolic Function MV Pk E: 0.89 MV Pk A: 0.56 E/A: 1.60 E'Medial: 3.59 E/E' Med: 24.80 E' Laterial: 5.33 E/E' Lat: 16.70 Right Ventricle TAPSE (mm): 19.90 TVS' Boy: 11.90 Tricuspid Valve TR Pk Boy: 1.08 TR Pk Grad: 5.00 RA Press: 3.00 RVSP: 8.00 Great Vessels Aorta Sinus of Valsalva: 3.17 2.0-3.[address] [place]: 2.67 1.7-3.4 cm Ao Asc: 3.10 2.1-3.4 cm Ao Arch: 2.80 Updated in Other Vendor System with Status of Final Alonzo Michelle MD electronically signed on 03/12/2022 9:17:33 AM with status of Final
[2022-03-10 07:13] LABS: Glucose, Whole Blood 283 mg/dL (60-115)
[2022-03-10 07:18] LABS: MANUAL DIFF FLAG NO
[2022-03-10 07:22] LABS: Basophils Percent Auto 0.2 % (0-2); Eosinophils Absolute Auto 0.2 X10*3/uL (0.0-0.4); Eosinophils Percent Auto 2.7 % (0-4); Hematocrit 45.3 % (42.0-52.0); Hemoglobin 14.8 g/dl (14.0-18.0); Imm Gran Abs Auto 0.03 X10*3/uL (0.00-0.03); Imm Gran Pct Auto 0.3 % (0.0-0.4); Lymphocytes Absolute Auto 2.9 X10*3/uL (1.2-4.9); Lymphocytes Percent Auto 32.2 % (20-40); Mean Corpuscular HGB Conc 32.7 g/dl (31.0-36.0); Mean Corpuscular Hemoglobin 26.6 pg (27.0-33.0); Mean Corpuscular Volume 81.3 fL (80.0-98.0); Mean Platelet Volume 10.2 fL (9.4-12.4); Monocytes Absolute Auto 0.7 X10*3/uL (0.1-1.2); Neutrophils Absolute Auto 5.1 x10*3/uL (2.0-8.3); Neutrophils Percent Auto 56.6 % (45-73); Platelet Count 158 X10*3/uL (160-400); Red Blood Count 5.57 X10*6/uL (4.60-5.80); Red Cell Distribution Width 13.9 % (11.0-16.0)
[2022-03-10 07:34] LABS: Anion Gap 13 (12-20); Blood Urea Nitrogen 15 mg/dL (9-16); Calcium 8.7 mg/dL (8.4-10.2); Carbon Dioxide 25 mmol/L (22-29); Chloride 102 mmol/L (96-108); Creatinine Clr Calc Pharmacy 92.8; Estimated Glomerular Filt Rate > 60; Glucose Random 297 mg/dL (60-115); Potassium 5.2 mmol/L (3.3-5.1); Sodium 135 mmol/L (135-145)
[2022-03-10] MEDS: Aspirin Enteric Coated 81 MG TABLET.DR PO (07:34)
[2022-03-10] MEDS: Gabapentin 100 MG CAPSULE PO (07:34)
[2022-03-10] MEDS: dilTIAZem HCL 30 MG TABLET PO ×2 (07:34→14:15)
[2022-03-10] MEDS: Insulin Lispro 100 UNIT/ML 3 ML VIAL SUBCUT ×4 (07:34→21:35)
[2022-03-10] MEDS: Omeprazole 20 MG CAPSULE.DR PO ×2 (07:35→17:09)
[2022-03-10] MEDS: ARIPiprazole 2 MG TABLET PO (09:11)
[2022-03-10] MEDS: nadoloL 20 MG TABLET PO (09:11)
--- NOTE | 2022-03-10 09:32 | PM.EVENT ---
Event Note Date of Service: 03/10/22 Event Note: GI consult dictated Nausea and vomiting with abnl ct of liver Agree with present treatment MRI for further evaluation of liver
[2022-03-10] MEDS: 0.9 % Sodium Chloride Flush 3 ML SYRINGE IVFLUSH ×2 (09:39→17:09)
[2022-03-10] MEDS: Buprenorphine/Naloxone 8/2 mg TAB.SUBL 1 TAB SUBLINGUAL (10:00)
[2022-03-10] MEDS: Heparin Sodium,Porcine 5,000 UNIT/ML VIAL 5000 UNIT SUBCUT (10:00)
--- NOTE | 2022-03-10 11:16 | MHC.CM.PN ---
Attempted to meet with patient in regards to discharge planning. Patient currently sleeping. No family present. Will attempt to meet again. Continue to monitor for d/c needs.
--- NOTE | 2022-03-10 12:20 | PM.CNCAR ---
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 He was noted to be in AFib with RVR. He was started on Cardizem. It appears she broke out of atrial fibrillation on his own. He did not have any symptoms during atrial fibrillation particular no palpitations. He is denying chest discomfort or shortness of breath. He is still experiencing some abdominal pain. CT scan of the abdomen did not show any obvious pathology. No previous bleeding issues. He has hypertension and diabetes. ON LICENSE OF [facility] Past Medical History Medical History Cholecystectomy planned Diabetes HTN (hypertension) Social History Social History Advance Directives: Yes Advance Directives Information Provided: No Advance Directives on File: No Meds Allergies Allergy/AdvReac Type Severity Reaction Status Date / Time No Known Allergies Allergy Verified 02/13/21 15:23 Active Medications: Current Medications Acetaminophen (Acetaminophen 325 Mg Tablet) 650 mg PO Q6H PRN PRN Reason: Pain, Mild (Pain Scale 1-3) Aripiprazole (Aripiprazole 2 Mg Tablet) 2 mg PO DAILY [facility] Last Admin: 03/10/22 09:11 Dose: 2 mg Documented by: Aspirin (Aspirin Enteric Coated 81 Mg Tablet.) 81 mg PO DAILY [facility] Last Admin: 03/10/22 07:34 Dose: 81 mg Documented by: Atorvastatin Calcium (Atorvastatin Calcium 40 Mg Tablet) 40 mg PO BEDTIME [facility] Buprenorphine/Naloxone (Buprenorphine/Naloxone 8/2 Mg Tab.Subl) 1 tab SUBLINGUAL DAILY [facility] Last Admin: 03/10/22 10:00 Dose: 1 tab Documented by: Dextrose (Dextrose 50 % 25 Gm/50 Ml Syringe) 25 gm IVPUSH Q15M PRN; Protocol PRN Reason: per Hypoglycemia Standing Ord. Diltiazem HCl (Diltiazem Hcl 30 Mg Tablet) 30 mg PO QID [facility]; Protocol Last Admin: 03/10/22 07:34 Dose: 30 mg Documented by: Gabapentin (Gabapentin 100 Mg Capsule) 200 mg PO BEDTIME [facility] Last Admin: 03/09/22 22:54 Dose: 200 mg Documented by: Gabapentin (Gabapentin 100 Mg Capsule) 100 mg PO DAILY [facility] Last Admin: 03/10/22 07:34 Dose: 100 mg Documented by: Glucose (Glucose Gel 15 Gm Gel..Gram.) 15 gm PO Q15M PRN; Protocol PRN Reason: per Hypoglycemia Standing Ord. Heparin Sodium (Porcine) (Heparin Sodium,Porcine 5,000 Unit/Ml Vial) 5,000 unit SUBCUT Q8H [facility] Last Admin: 03/10/22 10:00 Dose: 5,000 unit Documented by: Hydromorphone HCl (Hydromorphone Hcl 1 Mg/Ml Syringe) 0.6 mg IVPUSH Q4H PRN; Protocol PRN Reason: Breakthrough Pain Last Admin: 03/10/22 03:49 Dose: 0.6 mg Documented by: Insulin Human Lispro (Insulin Lispro 100 Unit/Ml 3 Ml Vial) 0 unit SUBCUT QIDACHS [facility]; Protocol Last Admin: 03/10/22 07:34 Dose: 6 unit Documented by: Melatonin (Melatonin 3 Mg Tablet) 6 mg PO BEDTIME PRN PRN Reason: Insomnia Last Admin: 03/10/22 03:29 Dose: 6 mg Documented by: Nadolol (Nadolol 20 Mg Tablet) 20 mg PO DAILY [facility]; Protocol Last Admin: 03/10/22 09:11 Dose: 20 mg Documented by: Omeprazole (Omeprazole 20 Mg Capsule.) 20 mg PO BID@0630,1630 [facility] Last Admin: 03/10/22 07:35 Dose: 20 mg Documented by: Ondansetron HCl (Ondansetron Hcl 4 Mg/2 Ml Vial) 4 mg IVPUSH Q8H PRN PRN Reason: Nausea and Vomiting Pharmacy Consult (Consult Rx Perform Med Rec) 1 each MISCELLANE ONCE PRN PRN Reason: Consult order Senna (Sennosides 8.6 Mg Tablet) 17.2 mg PO BEDTIME PRN PRN Reason: Constipation Sodium Chloride (0.9 % Sodium Chloride Flush 3 Ml Syringe) 3 ml IVFLUSH QSHIFT [facility] Last Admin: 03/10/22 09:39 Dose: 3 ml Documented by: Home Medications Medication Instructions Recorded Confirmed Last Taken Type amlodipine 10 mg tablet 10 mg PO DAILY 03/09/22 03/09/22 Unknown History aripiprazole 2 mg tablet 2 mg PO DAILY 03/09/22 03/09/22 Unknown History aspirin 81 mg tablet,delayed 81 mg PO DAILY 03/09/22 03/09/22 03/09/22 History release atorvastatin 80 mg tablet (Lipitor) 40 mg PO DAILY 03/09/22 03/09/22 Unknown History buprenorphine 8 mg-naloxone 2 mg 1 tab SUBLINGUAL DAILY 03/09/22 03/09/22 Unknown History sublingual tablet empagliflozin 25 mg tablet 25 mg PO DAILY 03/09/22 03/09/22 Unknown History furosemide 20 mg tablet 20 mg PO DAILY 03/09/22 03/09/22 Unknown History gabapentin 100 mg capsule 100 mg PO DAILY 03/09/22 03/09/22 Unknown History gabapentin 100 mg capsule 200 mg PO BEDTIME 03/09/22 03/09/22 Unknown History lactulose 10 gram/15 mL oral 30 ml PO Q8H PRN 03/09/22 03/09/22 Unknown History solution nadolol 20 mg tablet 20 mg PO DAILY 03/09/22 03/09/22 Unknown History pantoprazole 40 mg tablet,delayed 40 mg PO BID 03/09/22 03/09/22 Unknown History release (Protonix) Physical Exam Vital Signs: Vital Signs: Last Vital Signs Temp 98.2 F 03/10/22 06:00 Pulse 81 03/10/22 06:00 Resp 16 03/10/22 06:00 BP 142/80 H 03/10/22 06:00 Pulse Ox 94 03/10/22 06:00 BMI result Body Mass Index 33.3 GENERAL APPEARANCE: in no acute distress, pleasant. NECK: no carotid bruit, no jugular venous distention. SKIN: no suspicious lesions, warm and dry. HEART: no murmurs, regular rate and rhythm. LUNGS: clear to auscultation bilaterally. ABDOMEN: soft, mild midline tenderness. No guarding. EXTREMITIES: no edema. PERIPHERAL PULSES: equal. NEUROLOGIC: No gross deficits, AAO X 3 Objective Labs and Meds Result diagrams: 03/10/22 06:59 03/10/22 06:59 Lab results: Laboratory Results - last 24 hr 03/09/22 03/09/22 03/09/22 12:21 15:36 16:08 WBC RBC Hgb Hct MCV MCH MCHC RDW Plt Count MPV Immature Gran % (Auto) Neut % (Auto) Lymph % (Auto) [place] % (Auto) Eos % (Auto) Baso % (Auto) Lymph # (Auto) [place] # (Auto) Eos # (Auto) Baso # (Auto) Abs Immat Gran (auto) Absolute Neuts (auto) Absolute Nucleated RBC Nucleated RBC % (auto) Sodium Potassium Chloride Carbon Dioxide Anion Gap BUN Creatinine Estim Creat Clear Calc Estimated GFR POC Glucose 317 H Random Glucose Lactic Acid Calcium Magnesium Total Bilirubin AST ALT Alkaline Phosphatase Troponin I High Sens Total Protein Albumin Lipase Urine Color YELLOW Urine Appearance CLEAR Urine pH 5.5 Ur Specific [place] 1.025 Urine Protein 1+ H Urine Glucose (UA) >=1000 H Urine Ketones >=80 Urine Blood TRACE Urine Nitrite NEG Ur Leukocyte Esterase NEG Urine RBC 0-2 Urine WBC 0-2 Ur Squamous Epith Cells NONE Urine Bacteria NONE Acetone, Qual COVID-19 (CECIL) Negative COVID-19 Clin Com See Note 03/09/22 03/09/22 03/09/22 16:31 16:31 16:31 WBC 11.8 H RBC 6.09 H Hgb 16.2 Hct 49.5 MCV 81.3 MCH 26.6 L MCHC 32.7 RDW 14.2 Plt Count 188 MPV 9.8 Immature Gran % (Auto) 0.3 Neut % (Auto) 68.8 Lymph % (Auto) 22.6 [place] % (Auto) 6.2 Eos % (Auto) 1.9 Baso % (Auto) 0.2 Lymph # (Auto) 2.7 [place] # (Auto) 0.7 Eos # (Auto) 0.2 Baso # (Auto) 0.0 Abs Immat Gran (auto) 0.04 H Absolute Neuts (auto) 8.1 Absolute Nucleated RBC 0.000 Nucleated RBC % (auto) 0.0 Sodium 138 Potassium 4.7 Chloride 103 Carbon Dioxide 25 Anion Gap 15 BUN 12 Creatinine 0.81 Estim Creat Clear Calc 99.7 Estimated GFR > 60 POC Glucose Random Glucose 295 H Lactic Acid Calcium 9.1 Magnesium 1.8 Total Bilirubin 2.1 H AST 20 ALT 29 Alkaline Phosphatase 100 Troponin I High Sens 47.7 H Total Protein 6.7 Albumin 3.5 Lipase 14 Urine Color Urine Appearance Urine pH Ur Specific [place] Urine Protein Urine Glucose (UA) Urine Ketones Urine Blood Urine Nitrite Ur Leukocyte Esterase Urine RBC Urine WBC Ur Squamous Epith Cells Urine Bacteria Acetone, Qual COVID-19 ([facility]CIL) COVID-19 [employer] 03/09/22 03/09/22 03/09/22 18:32 18:32 19:46 WBC RBC Hgb Hct MCV MCH MCHC RDW Plt Count MPV Immature Gran % (Auto) Neut % (Auto) Lymph % (Auto) [place] % (Auto) Eos % (Auto) Baso % (Auto) Lymph # (Auto) [place] # (Auto) Eos # (Auto) Baso # (Auto) Abs Immat Gran (auto) Absolute Neuts (auto) Absolute Nucleated RBC Nucleated RBC % (auto) Sodium Potassium Chloride Carbon Dioxide Anion Gap BUN Creatinine Estim Creat Clear Calc Estimated GFR POC Glucose Random Glucose Lactic Acid 1.9 Calcium Magnesium Total Bilirubin AST ALT Alkaline Phosphatase Troponin I High Sens 42.5 H Total Protein Albumin Lipase Urine Color Urine Appearance Urine pH Ur Specific [place] Urine Protein Urine Glucose (UA) Urine Ketones Urine Blood Urine Nitrite Ur Leukocyte Esterase Urine RBC Urine WBC Ur Squamous Epith Cells Urine Bacteria Acetone, Qual Negative COVID-19 ([facility]IL) COVID-19 [employer] 03/10/22 03/10/22 03/10/22 03:34 06:59 06:59 WBC 9.0 RBC 5.57 Hgb 14.8 Hct 45.3 MCV 81.3 MCH 26.6 L MCHC 32.7 RDW 13.9 Plt Count 158 L MPV 10.2 Immature Gran % (Auto) 0.3 Neut % (Auto) 56.6 Lymph % (Auto) 32.2 [place] % (Auto) 8.0 Eos % (Auto) 2.7 Baso % (Auto) 0.2 Lymph # (Auto) 2.9 [place] # (Auto) 0.7 Eos # (Auto) 0.2 Baso # (Auto) 0.0 Abs Immat Gran (auto) 0.03 Absolute Neuts (auto) 5.1 Absolute Nucleated RBC 0.000 Nucleated RBC % (auto) 0.0 Sodium 135 Potassium 5.2 H Chloride 102 Carbon Dioxide 25 Anion Gap 13 BUN 15 Creatinine 0.87 Estim Creat Clear Calc 92.8 Estimated GFR > 60 POC Glucose 250 H Random Glucose 297 H Lactic Acid Calcium 8.7 Magnesium Total Bilirubin AST ALT Alkaline Phosphatase Troponin I High Sens Total Protein Albumin Lipase Urine Color Urine Appearance Urine pH Ur Specific [place] Urine Protein Urine Glucose (UA) Urine Ketones Urine Blood Urine Nitrite Ur Leukocyte Esterase Urine RBC Urine WBC Ur Squamous Epith Cells Urine Bacteria Acetone, Qual COVID-19 ([facility]) COVID-19 Clin Com 03/10/22 07:09 WBC RBC Hgb Hct MCV MCH MCHC RDW Plt Count MPV Immature Gran % (Auto) Neut % (Auto) Lymph % (Auto) [place] % (Auto) Eos % (Auto) Baso % (Auto) Lymph # (Auto) [place] # (Auto) Eos # (Auto) Baso # (Auto) Abs Immat Gran (auto) Absolute Neuts (auto) Absolute Nucleated RBC Nucleated RBC % (auto) Sodium Potassium Chloride Carbon Dioxide Anion Gap BUN Creatinine Estim Creat Clear Calc Estimated GFR POC Glucose 283 H Random Glucose Lactic Acid Calcium Magnesium Total Bilirubin AST ALT Alkaline Phosphatase Troponin I High Sens Total Protein Albumin Lipase Urine Color Urine Appearance Urine pH Ur Specific [place] Urine Protein Urine Glucose (UA) Urine Ketones Urine Blood Urine Nitrite Ur Leukocyte Esterase Urine RBC Urine WBC Ur Squamous Epith Cells Urine Bacteria Acetone, Qual COVID-19 ([facility]IL) COVID-19 Clin Com Imaging Radiologist's impression: Impressions Abdomen/Pelvis CT 03/09/22 15:17 IMPRESSION: Cirrhotic liver with portal hypertension. There is a nonspecific area of capsular retraction in the right hepatic lobe. Recommend evaluation with an MR of the abdomen with and without intravenous contrast. Hyperdense lesion in the right kidney measuring 1.1 cm, likely represents a hemorrhagic or proteinaceous cyst. This could be further characterized with a renal ultrasound or the above recommended MRI. Diverticulosis but no evidence of acute diverticulitis. No bowel obstruction. Assessment and Plan (1) Cirrhosis: Status: Acute (2) Atrial fibrillation with rapid ventricular response: Status: Acute Plan 66-year-old gentleman who is presenting for abdominal pain nausea and vomiting and was noted to be in AFib with RVR. He has since reverted back to sinus rhythm. He is on nadolol for cirrhosis of liver and I think we can continue same for now. I would stop the Cardizem for now. He was completely asymptomatic when he developed atrial fibrillation. In terms of anticoagulation, he is high risk for stroke given age, hypertension and diabetes. Eliquis and Xarelto are possibilities. Eliquis has hepatic clearance was Xarelto has renal clearance. In my opinions rivaroxaban would be better to use in this scenario. Continue workup for the abdominal pain. Lactate is normal and there is no anion gap so I doubt that AFib is the cause for abdominal pain as there is no evidence of ischemic bowel. Thank you for allowing me to participate in the care of your patient. Please feel free to contact me if you have any questions. Procedures Date of Service Date of Service: 03/10/22
[2022-03-10 13:49] LABS: Glucose, Whole Blood 294 mg/dL (60-115)
[2022-03-10 14:20] VITALS: BP 142/79; PULSE 64; O2SAT 95
--- NOTE | 2022-03-10 14:32 | MHC.CM.PN ---
Attempted to meet with patient. Patient currently at test. Will attempt to meet again. Continue to monitor for d/c needs.
--- NOTE | 2022-03-10 16:56 | P.PNIM_ITS ---
Subjective Subjective Date of Service: 03/10/22 Interval History: afib ,liver lesion, renal cyst nausea/abd pain Review of Systems Abdominal pain seems improving, denies any vomiting episode over the day. Still feel nauseated . Heart rate is also improving Physical Exam Vital Signs: Vital Signs: Last Vital Signs Temp 98.2 F 03/10/22 06:00 Pulse 64 03/10/22 14:20 Resp 16 03/10/22 06:00 BP 142/79 H 03/10/22 14:20 Pulse Ox 95 03/10/22 14:20 BMI result Body Mass Index 33.3 Appearance: Alert.? Oriented X3.?in somewhat pain. cvs: rrr, [id number] , no murmur res: clear to auscultation ,no rhonchii or wheezing abd: no rebound or guarding ,still abd tenderness , bs present. ext pulses present , no cyanosis . neuro: axo3 , nonfocal. Objective Data Active Medications Acetaminophen (Acetaminophen 325 Mg Tablet) 650 mg PO Q6H PRN PRN Reason: Pain, Mild (Pain Scale 1-3) Aripiprazole (Aripiprazole 2 Mg Tablet) 2 mg PO DAILY [facility] Last Admin: 03/10/22 09:11 Dose: 2 mg Documented by: BRINA Atorvastatin Calcium (Atorvastatin Calcium 40 Mg Tablet) 40 mg PO BEDTIME [facility] Buprenorphine/Naloxone (Buprenorphine/Naloxone 8/2 Mg Tab.Subl) 1 tab SUBLINGUAL DAILY [facility] Last Admin: 03/10/22 10:00 Dose: 1 tab Documented by: BRINA Dextrose (Dextrose 50 % 25 Gm/50 Ml Syringe) 25 gm IVPUSH Q15M PRN; Protocol PRN Reason: per Hypoglycemia Standing Ord. Gabapentin (Gabapentin 100 Mg Capsule) 200 mg PO BEDTIME [facility] Last Admin: 03/09/22 22:54 Dose: 200 mg Documented by: LISANDRA Gabapentin (Gabapentin 100 Mg Capsule) 100 mg PO DAILY [facility] Last Admin: 03/10/22 07:34 Dose: 100 mg Documented by: BRINA Glucose (Glucose Gel 15 Gm Gel..Gram.) 15 gm PO Q15M PRN; Protocol PRN Reason: per Hypoglycemia Standing Ord. Hydromorphone HCl (Hydromorphone Hcl 1 Mg/Ml Syringe) 0.6 mg IVPUSH Q4H PRN; Protocol PRN Reason: Breakthrough Pain Last Admin: 03/10/22 03:49 Dose: 0.6 mg Documented by: COREY Insulin Human Lispro (Insulin Lispro 100 Unit/Ml 3 Ml Vial) 0 unit SUBCUT QIDACHS [facility]; Protocol Last Admin: 03/10/22 14:14 Dose: 6 unit Documented by: BRINA Melatonin (Melatonin 3 Mg Tablet) 6 mg PO BEDTIME PRN PRN Reason: Insomnia Last Admin: 03/10/22 03:29 Dose: 6 mg Documented by: COREY Nadolol (Nadolol 20 Mg Tablet) 20 mg PO DAILY [facility]; Protocol Last Admin: 03/10/22 09:11 Dose: 20 mg Documented by: BRINA Omeprazole (Omeprazole 20 Mg Capsule.Dr) 20 mg PO BID@0630,1630 [facility] Last Admin: 03/10/22 07:35 Dose: 20 mg Documented by: BRINA Ondansetron HCl (Ondansetron Hcl 4 Mg/2 Ml Vial) 4 mg IVPUSH Q8H PRN PRN Reason: Nausea and Vomiting Pharmacy Consult (Consult Rx Perform Med Rec) 1 each MISCELLANE ONCE PRN PRN Reason: Consult order Rivaroxaban (Rivaroxaban 20 Mg Tablet) 20 mg PO DAILY@1700 [facility] Senna (Sennosides 8.6 Mg Tablet) 17.2 mg PO BEDTIME PRN PRN Reason: Constipation Sodium Chloride (0.9 % Sodium Chloride Flush 3 Ml Syringe) 3 ml IVFLUSH QSHIFT [facility] Last Admin: 03/10/22 09:39 Dose: 3 ml Documented by: BRINA Labs CBC & Chem 7: 03/10/22 06:59 03/10/22 06:59 Labs: Laboratory Results - last 24 hr 03/09/22 03/09/22 03/09/22 16:31 16:31 18:32 MCV MCH MCHC RDW Plt Count MPV Immature Gran % (Auto) Neut % (Auto) Lymph % (Auto) [place] % (Auto) Eos % (Auto) Baso % (Auto) Lymph # (Auto) [place] # (Auto) Eos # (Auto) Baso # (Auto) Abs Immat Gran (auto) Absolute Neuts (auto) Absolute Nucleated RBC Nucleated RBC % (auto) Anion Gap 15 Estim Creat Clear Calc 99.7 Estimated GFR > 60 POC Glucose Random Glucose 295 H Lactic Acid Calcium 9.1 Magnesium 1.8 Total Bilirubin 2.1 H AST 20 ALT 29 Alkaline Phosphatase 100 Troponin I High Sens 47.7 H Total Protein 6.7 Albumin 3.5 Lipase 14 Acetone, Qual Negative 03/09/22 03/09/22 03/10/22 18:32 19:46 03:34 MCV MCH MCHC RDW Plt Count MPV Immature Gran % (Auto) Neut % (Auto) Lymph % (Auto) [place] % (Auto) Eos % (Auto) Baso % (Auto) Lymph # (Auto) [place] # (Auto) Eos # (Auto) Baso # (Auto) Abs Immat Gran (auto) Absolute Neuts (auto) Absolute Nucleated RBC Nucleated RBC % (auto) Anion Gap Estim Creat Clear Calc Estimated GFR POC Glucose 250 H Random Glucose Lactic Acid 1.9 Calcium Magnesium Total Bilirubin AST ALT Alkaline Phosphatase Troponin I High Sens 42.5 H Total Protein Albumin Lipase Acetone, Qual 03/10/22 03/10/22 03/10/22 06:59 06:59 07:09 MCV 81.3 MCH 26.6 L MCHC 32.7 RDW 13.9 Plt Count 158 L MPV 10.2 Immature Gran % (Auto) 0.3 Neut % (Auto) 56.6 Lymph % (Auto) 32.2 [place] % (Auto) 8.0 Eos % (Auto) 2.7 Baso % (Auto) 0.2 Lymph # (Auto) 2.9 [place] # (Auto) 0.7 Eos # (Auto) 0.2 Baso # (Auto) 0.0 Abs Immat Gran (auto) 0.03 Absolute Neuts (auto) 5.1 Absolute Nucleated RBC 0.000 Nucleated RBC % (auto) 0.0 Anion Gap 13 Estim Creat Clear Calc 92.8 Estimated GFR > 60 POC Glucose 283 H Random Glucose 297 H Lactic Acid Calcium 8.7 Magnesium Total Bilirubin AST ALT Alkaline Phosphatase Troponin I High Sens Total Protein Albumin Lipase Acetone, Qual 03/10/22 13:45 MCV MCH MCHC RDW Plt Count MPV Immature Gran % (Auto) Neut % (Auto) Lymph % (Auto) [place] % (Auto) Eos % (Auto) Baso % (Auto) Lymph # (Auto) [place] # (Auto) Eos # (Auto) Baso # (Auto) Abs Immat Gran (auto) Absolute Neuts (auto) Absolute Nucleated RBC Nucleated RBC % (auto) Anion Gap Estim Creat Clear Calc Estimated GFR POC Glucose 294 H Random Glucose Lactic Acid Calcium Magnesium Total Bilirubin AST ALT Alkaline Phosphatase Troponin I High Sens Total Protein Albumin Lipase Acetone, Qual Assessment and Plan (1) Atrial fibrillation with rapid ventricular response: Status: Acute (2) Cirrhosis: Status: Acute (3) Intractable nausea and vomiting: Status: Acute Plan 66-year-old male with a past medical history of hypertension, hyperlipidemia, diabetes, Liver cirrhosis, opiate dependence, GERD,chronic abdominal pain with extensive workup; presented to the hospital today with a chief complaint of nausea vomiting and abdominal pain.? ?nausea/vomiting /abdominal pain:? Acute on chronic.? Supportive care,Zofran p.r.n.,Pain control Gastroenterology -Question right hepatic lobe lesion added mri -report pendin d/w GI: Recommended at MRI, continue supportive care for above. Okay to start anticoagulation for AFib. possible renal cyst:? added mri as above. may need urology eval; ? New onset AFib with rapid ventricular response: ? received IV diltiazem in the ED, heart rate seems to be improving.? Patient has returned to normal sinus rhythm, stop Cardizem, continue nadolol added echocardiogram Cardio evaluation noted: Continue nadolol, added Xarelto . History of diabetes:? Insulin sliding scale History of opiate dependence:? Patient on Suboxone.? Addiction Medicine consult.? History of GERD: Continue home PPI DVT prophylaxis:? Started on Xarelto Code status:? Full code Inpatient need: Persistent nausea / abdominal pain, workup for liver and renal region pending, echo pending for AFib Quality Stroke Does the patient have a stroke diagnosis?: No VTE Prior VTE?: No VTE Risk Level:: Medical - moderate - high VTE Device Contraindication: Treatment Not Indicated VTE Drug Contraindication: N/A - Med Ordered
[2022-03-10 17:04] VITALS: BP 120/71; PULSE 63; RESP 15; O2SAT 97
[2022-03-10] MEDS: Rivaroxaban 20 MG TABLET PO (17:09)
--- NOTE | 2022-03-10 17:22 | PC.NURSE ---
Report given to Kannan MATIAS for plan to transfer pt to overflow area.
[2022-03-10 17:48] LABS: Glucose, Whole Blood 313 mg/dL (60-115)
--- NOTE | 2022-03-10 20:36 | CONS_ITS ---
DATE OF SERVICE: 03/10/2022 REFERRING PHYSICIAN: Braden Oliva MD REASON FOR CONSULTATION: Nausea and vomiting with abdominal pain and abnormal MRI of the liver. HISTORY OF PRESENT ILLNESS: The patient is a pleasant 66-year-old man who was admitted to the hospital after presenting to the emergency room yesterday with complaints of nausea, vomiting, and abdominal pain. He reports several years of GI complaints with reflux symptoms, nausea, vomiting, and intermittent abdominal pain, that worsened over the past week or prior to admission. He was recently started on new antacid medicine, the name of which he does not recall. He has been evaluated in [place] with multiple GI studies including endoscopy and gastric emptying scan, and is on nadolol for underlying liver problems. Records are not available. He denies any prior history of upper GI bleeding, ascites, or jaundice. 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 He was evaluated in the emergency department and underwent imaging studies including CT scanning of the abdomen and pelvis, which is reviewed. This is interpreted as showing nonspecific subcapsular retraction of the liver, for which MRI was recommended. He also had a right kidney hyperdense lesion. Liver function tests on admission were normal and cirrhotic changes were noted on his CAT scan. He did have a slight elevation of his total bilirubin at 2.1. PAST MEDICAL HISTORY: 1. Hepatic cirrhosis with history of hepatitis B as above. 2. Atrial fibrillation, new onset. 3. Gastroesophageal reflux disease. 4. Hypertension. 5. Hyperlipidemia. 6. Diabetes. 7. Cholecystectomy. CURRENT MEDICATIONS: Current medication list is reviewed in the chart. ALLERGIES: THERE ARE NONE REPORTED. FAMILY HISTORY: This is reviewed with the patient and is noncontributory. SOCIAL HISTORY: He denies substance abuse. REVIEW OF SYSTEMS: SKIN: No pruritus. HEENT: Negative. CARDIOPULMONARY: No shortness of breath or chest pain. GASTROINTESTINAL: As above. GENITOURINARY: Negative. NEUROPSYCHIATRIC: Negative. PHYSICAL EXAMINATION: GENERAL: Shows a pleasant male, lying comfortably in bed. VITAL SIGNS: Reviewed in the electronic medical record and are stable. SKIN: Anicteric. HEENT: Shows no scleral icterus. NECK: Without lymphadenopathy or thyromegaly. LUNGS: Clear. HEART: Shows a regular rate and rhythm. S1, S2. No murmur. ABDOMEN: Soft without focal masses or tenderness. Bowel sounds are present. No organomegaly is noted. EXTREMITIES: Without edema. LABORATORY DATA: Reviewed. White blood cell count is 9. CT scanning is reviewed. IMPRESSION: 1. Nausea and vomiting. 2. Abnormal CT scan of the liver. 3. I agree with treating his nausea and vomiting with antiemetics and supportive care. I would continue proton-pump inhibitor for his underlying history of gastroesophageal reflux disease. MRI of the liver has been ordered for further evaluation. Thanks for asking me to see him. I will follow him in the hospital with you. MD ЮЛИЯ Pickens/ODE / [phone]
[2022-03-10 21:08] LABS: Glucose, Whole Blood 181 mg/dL (60-115)
[2022-03-10] MEDS: Atorvastatin Calcium 40 MG TABLET PO (21:35)
[2022-03-10] MEDS: Gabapentin 100 MG CAPSULE 200 MG PO (21:35)
[2022-03-10 23:21] VITALS: BP 120/69; PULSE 61; RESP 14; O2SAT 93
[2022-03-11 04:00] VITALS: BP 110/53; PULSE 59; RESP 15; TEMP 37.3; O2SAT 95
[2022-03-11] MEDS: Omeprazole 20 MG CAPSULE.DR PO ×2 (05:49→17:24)
[2022-03-11 07:16] LABS: Estimated Average Glucose 229 mg/dL; Hemoglobin A1c % 9.6 %
[2022-03-11 07:21] LABS: Anion Gap 12 (12-20); Blood Urea Nitrogen 20 mg/dL (9-16); Calcium 8.9 mg/dL (8.4-10.2); Carbon Dioxide 26 mmol/L (22-29); Chloride 104 mmol/L (96-108); Creatinine Clr Calc Pharmacy 98.5; Estimated Glomerular Filt Rate > 60; Glucose Random 215 mg/dL (60-115); Potassium 4.5 mmol/L (3.3-5.1); Sodium 137 mmol/L (135-145)
[2022-03-11 08:00] VITALS: BP 101/51; PULSE 66; RESP 12; TEMP 36.7; O2SAT 98
[2022-03-11] MEDS: Insulin Lispro 100 UNIT/ML 3 ML VIAL SUBCUT ×4 (08:02→21:13)
--- NOTE | 2022-03-11 08:29 | MHC.CM.PN ---
Addendum entered by Iraida Joyce 03/11/22 11:41: AWAITING CARDIO, GI, AND NEPHRO FOLLOW UP [place] [facility] [place] Original Note: PATIENT LIVES WITH DAUGHTER AND GRANDCHILDREN. HE USES A CANE AND A WALKER. 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 HIS PCP IS IN [facility] AND HE SEES GEOVANY MARC. HE WOULD LIKE TO DC HOME WITH RESUMPTION OF SERVICES WHEN MEDICALLY STABLE. FAMILY TO TRANSPORT
[2022-03-11] MEDS: HYDROmorphone HCl 1 MG/ML SYRINGE 0.6 MG IVPUSH ×2 (08:48→17:38)
[2022-03-11] MEDS: 0.9 % Sodium Chloride Flush 3 ML SYRINGE IVFLUSH ×3 (08:49→21:14)
--- NOTE | 2022-03-11 09:11 | P.PNIM_ITS ---
Subjective Subjective Date of Service: 03/11/22 Interval History: afib ,liver lesion, renal cyst nausea/abd pain Review of Systems Abdominal pain seems similar to yesterday,? Still feel nauseated . Heart rate is also improving Physical Exam Vital Signs: Vital Signs: Last Vital Signs Temp 99.2 F 03/11/22 04:00 Pulse 59 03/11/22 04:00 Resp 15 03/11/22 04:00 BP 110/53 L 03/11/22 04:00 Pulse Ox 95 03/11/22 04:00 BMI result Body Mass Index 33.3 Appearance: Alert.? Oriented X3.?in somewhat pain. cvs: rrr, [id number] , no murmur res: clear to auscultation ,no rhonchii or wheezing abd: no rebound or guarding ,still abd tenderness , bs present. ext pulses present , no cyanosis . neuro: axo3 , nonfocal. Objective Data Active Medications Acetaminophen (Acetaminophen 325 Mg Tablet) 650 mg PO Q6H PRN PRN Reason: Pain, Mild (Pain Scale 1-3) Aripiprazole (Aripiprazole 2 Mg Tablet) 2 mg PO DAILY COUNTS INCLUDE 234 BEDS AT THE [facility] Last Admin: 03/10/22 09:11 Dose: 2 mg Documented by: BRINA Atorvastatin Calcium (Atorvastatin Calcium 40 Mg Tablet) 40 mg PO BEDTIME COUNTS INCLUDE 234 BEDS AT THE [facility] Last Admin: 03/10/22 21:35 Dose: 40 mg Documented by: ERON Buprenorphine/Naloxone (Buprenorphine/Naloxone 8/2 Mg Tab.Subl) 1 tab SUBLINGUAL DAILY COUNTS INCLUDE 234 BEDS AT THE [facility] Last Admin: 03/10/22 10:00 Dose: 1 tab Documented by: BRINA Dextrose (Dextrose 50 % 25 Gm/50 Ml Syringe) 25 gm IVPUSH Q15M PRN; Protocol PRN Reason: per Hypoglycemia Standing Ord. Gabapentin (Gabapentin 100 Mg Capsule) 200 mg PO BEDTIME COUNTS INCLUDE 234 BEDS AT THE [facility] Last Admin: 03/10/22 21:35 Dose: 200 mg Documented by: ERON Gabapentin (Gabapentin 100 Mg Capsule) 100 mg PO DAILY COUNTS INCLUDE 234 BEDS AT THE [facility] Last Admin: 03/10/22 07:34 Dose: 100 mg Documented by: BRINA Glucose (Glucose Gel 15 Gm Gel..Gram.) 15 gm PO Q15M PRN; Protocol PRN Reason: per Hypoglycemia Standing Ord. Hydromorphone HCl (Hydromorphone Hcl 1 Mg/Ml Syringe) 0.6 mg IVPUSH Q4H PRN; Protocol PRN Reason: Breakthrough Pain Last Admin: 03/11/22 08:48 Dose: 0.6 mg Documented by: HADLEY Insulin Human Lispro (Insulin Lispro 100 Unit/Ml 3 Ml Vial) 0 unit SUBCUT QIDACHS COUNTS INCLUDE 234 BEDS AT THE [facility]; Protocol Last Admin: 03/11/22 08:02 Dose: 4 unit Documented by: HADLEY Melatonin (Melatonin 3 Mg Tablet) 6 mg PO BEDTIME PRN PRN Reason: Insomnia Last Admin: 03/10/22 03:29 Dose: 6 mg Documented by: COREY Nadolol (Nadolol 20 Mg Tablet) 20 mg PO DAILY COUNTS INCLUDE 234 BEDS AT THE [facility]; Protocol Last Admin: 03/10/22 09:11 Dose: 20 mg Documented by: BRINA Omeprazole (Omeprazole 20 Mg Capsule.Dr) 20 mg PO BID@0630,1630 COUNTS INCLUDE 234 BEDS AT THE [facility] Last Admin: 03/11/22 05:49 Dose: 20 mg Documented by: ERON Ondansetron HCl (Ondansetron Hcl 4 Mg/2 Ml Vial) 4 mg IVPUSH Q8H PRN PRN Reason: Nausea and Vomiting Pharmacy Consult (Consult Rx Perform Med Rec) 1 each MISCELLANE ONCE PRN PRN Reason: Consult order Rivaroxaban (Rivaroxaban 20 Mg Tablet) 20 mg PO DAILY@1700 COUNTS INCLUDE 234 BEDS AT THE [facility] Last Admin: 03/10/22 17:09 Dose: 20 mg Documented by: JUN Senna (Sennosides 8.6 Mg Tablet) 17.2 mg PO BEDTIME PRN PRN Reason: Constipation Sodium Chloride (0.9 % Sodium Chloride Flush 3 Ml Syringe) [facility] Last Admin: 03/11/22 08:49 Dose: 3 ml Documented by: HADLEY Labs CBC & Chem 7: 03/10/22 06:59 03/11/22 05:49 Labs: Laboratory Results - last 24 hr 03/09/22 03/10/22 03/10/22 16:31 06:59 13:45 Anion Gap Creatinine 0.81 0.87 Estim Creat Clear Calc Estimated GFR POC Glucose 294 H Random Glucose Estimat Average Glucose Hemoglobin A1c % Calcium 03/10/22 03/10/22 03/11/22 17:44 21:00 05:49 Anion Gap 12 Creatinine 0.82 Estim Creat Clear Calc 98.5 Estimated GFR > 60 POC Glucose 313 H 181 H Random Glucose 215 H Estimat Average Glucose Hemoglobin A1c % Calcium 8.9 03/11/22 05:49 Anion Gap Creatinine Estim Creat Clear Calc Estimated GFR POC Glucose Random Glucose Estimat Average Glucose 229 Hemoglobin A1c % 9.6 Calcium Microbiology Microbiology Results: Microbiology 03/09/22 18:52 Blood Culture - Preliminary Blood - Venous No growth after 24 hours. 03/09/22 18:32 Blood Culture - Preliminary Blood - Venous No growth after 24 hours. Assessment and Plan (1) Atrial fibrillation with rapid ventricular response: Status: Acute (2) Cirrhosis: Status: Acute (3) Intractable nausea and vomiting: Status: Acute Plan 66-year-old male with a past medical history of hypertension, hyperlipidemia, diabetes, Liver cirrhosis, opiate dependence, GERD,chronic abdominal pain with extensive workup; presented to the hospital today with a chief complaint of nausea vomiting and abdominal pain.? ?nausea/vomiting /abdominal pain:? Acute on chronic.? Supportive care,Zofran p.r.n.,Pain control Gastroenterology -Question right hepatic lobe lesion added mri -report noted -called again for comment on liver lesion /renal . Gi follow up Okay to start anticoagulation for AFib. ?possible renal cyst:? added? mri as above-after addedum if may need urology eval; ? New onset AFib with rapid ventricular response: ?? received IV diltiazem in the ED, heart rate seems to be improving.? ?Patient has returned to normal sinus rhythm, stop Cardizem, continue nadolol added echocardiogram Cardio evaluation noted:? Continue nadolol, added Xarelto . History of diabetes:? Insulin sliding scale History of opiate dependence:? Patient on Suboxone.? Addiction Medicine consult.? History of GERD: Continue home PPI DVT prophylaxis:? Started on Xarelto Code status:? Full code Inpatient need:? Persistent nausea / abdominal pain, workup for liver and renal region pending, echo pending for AFib Quality Stroke Does the patient have a stroke diagnosis?: No VTE Prior VTE?: No VTE Risk Level:: Medical - moderate - high VTE Device Contraindication: Treatment Not Indicated VTE Drug Contraindication: N/A - Med Ordered
[2022-03-11] MEDS: Gabapentin 100 MG CAPSULE PO (10:03)
[2022-03-11] MEDS: nadoloL 20 MG TABLET PO (10:03)
[2022-03-11] MEDS: ARIPiprazole 2 MG TABLET PO (10:04)
[2022-03-11 12:06] LABS: Glucose, Whole Blood 227 mg/dL (60-115)
[2022-03-11 12:41] LABS: Glucose, Whole Blood 243 mg/dL (60-115)
[2022-03-11 16:00] VITALS: BP 126/75; PULSE 59; RESP 18; TEMP 36.6; O2SAT 96
--- NOTE | 2022-03-11 16:30 | PM.EVENT ---
Event Note Date of Service: 03/11/22 Event Note: GI MRI reviewed. No evidence of hepatocellular carcinoma. No further liver workup necessary at this time. He can f/u with his GI provider in [place] as an outpatient. Discussed with Dr De La Torre.
[2022-03-11 16:38] LABS: Glucose, Whole Blood 268 mg/dL (60-115)
[2022-03-11] MEDS: Rivaroxaban 20 MG TABLET PO (17:33)
[2022-03-11 19:03] VITALS: BP 112/54; PULSE 67; RESP 18; TEMP 36.1; O2SAT 95
[2022-03-11 20:59] LABS: Glucose, Whole Blood 301 mg/dL (60-115)
[2022-03-11] MEDS: Gabapentin 100 MG CAPSULE 200 MG PO (21:13)
[2022-03-11] MEDS: Atorvastatin Calcium 40 MG TABLET PO (21:13)
[2022-03-11 23:53] VITALS: BP 142/73; PULSE 70; RESP 18; TEMP 37.3; O2SAT 97
[2022-03-12] MEDS: HYDROmorphone HCl 1 MG/ML SYRINGE 0.6 MG IVPUSH (00:13)
[2022-03-12 03:35] VITALS: BP 123/71; PULSE 65; RESP 17; TEMP 36.9; O2SAT 96
[2022-03-12] MEDS: Omeprazole 20 MG CAPSULE.DR PO (05:54)
[2022-03-12 08:00] VITALS: BP 122/54; PULSE 64; RESP 16; TEMP 36.9; O2SAT 94
[2022-03-12 08:22] LABS: Glucose, Whole Blood 200 mg/dL (60-115)
--- NOTE | 2022-03-12 10:12 | PC.NURSE ---
POC 200
[2022-03-12] MEDS: Buprenorphine/Naloxone 8/2 mg TAB.SUBL 1 TAB SUBLINGUAL (10:21)
[2022-03-12] MEDS: Insulin Lispro 100 UNIT/ML 3 ML VIAL SUBCUT ×2 (10:21→13:52)
[2022-03-12] MEDS: Gabapentin 100 MG CAPSULE PO (10:21)
--- NOTE | 2022-03-12 10:29 | PC.NURSE ---
received patient in bed A?O x 4. Moves extramities, follows commands. Speech clear and coherent. No difficulty in breathing, denies chest pain or tightness. States vomited x 1 this am before breakfast, he reports this is normal for him. States overall his presenting concern of n/v is much improved, would like to be discharged. Will follow up with MD.
[2022-03-12 10:52] LABS: Glucose, Whole Blood 286 mg/dL (60-115)
[2022-03-12] MEDS: nadoloL 20 MG TABLET PO (12:01)
[2022-03-12] MEDS: ARIPiprazole 2 MG TABLET PO (12:01)
[2022-03-12 12:02] VITALS: BP 142/88; PULSE 66; RESP 15; O2SAT 94
[2022-03-12] MEDS: 0.9 % Sodium Chloride Flush 3 ML SYRINGE IVFLUSH (12:05)
[2022-03-12 12:30] VITALS: BP 115/65; PULSE 65; RESP 15; TEMP 36.9
--- NOTE | 2022-03-12 13:13 | PC.NURSE ---
Medications given late due to medications not being in the [facility]. Awaited pharmacy to bring to unit
--- NOTE | 2022-03-12 13:29 | PM.DS ---
DS: Providers Provider Date of Service: 03/12/22 Date of admission: 03/09/22 19:52 Primary care physician: MONICO Santiago Consults: 03/09/22 19:52 Consult to Cardiology Routine Consulting Provider: Alonzo Michelle Reason for consultation: AFib with RVR Consult to Gastroenterology Routine Consulting Provider: Matty Butler Reason for consultation: nausea/vomiting /abdominal pain 03/09/22 19:54 Addiction Medicine Routine Consulting Provider: Isa Trivedi Reason for consultation: patient on Suboxone DS: Diagnosis Discharge Diagnosis (1) Atrial fibrillation with rapid ventricular response: Status: Acute (2) Cirrhosis: Status: Acute (3) Intractable nausea and vomiting: Status: Acute DS: Summary Hospital Course Hospital Course: Chief Complaint:? nausea/vomiting /abdominal pain ?66-year-old male with a past medical history of hypertension, hyperlipidemia, diabetes, Liver cirrhosis, opiate dependence, GERD,chronic abdominal pain with extensive workup; presented to the hospital today with a chief complaint of nausea vomiting and abdominal pain.? Patient reports that he has been having abdominal pain for long time but over the past 2 weeks he has been gradually worsening; ulcer with nausea and vomiting; no significant improvement with anti nausea medication; abdominal pain is diffuse; had multiple episodes of vomiting last night.? Denies any blood in the vomitus.? Denies any fever chills cough or sputum production.? Denies any chest pain or palpitations.? Review of all other systems is negative except mentioned above ER course: Per ER team patient noted to have diffuse abdominal tenderness; no guarding no rigidity; CT abdomen showed no acute intra-abdominal process but noted to have liver cirrhosis and the question right hepatic lobe lesion as well as right kidney lesion; lipase within normal limits; liver panel within normal limits except for mildly elevated DVT; troponin elevated to 47.7; repeat troponin pending; EKG nonischemic; ER team mentioned that patient was noted to have new onset AFib with rapid ventricular response- given IV diltiazem with improvement in heart rate; admitted to the hospital for further management. Hospital course: nausea/vomiting /abdominal pain:? 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 He had a CT showing ? hepatic lesion. He ended having an MRI which did not show any evidence acute process or hepatocellular carcinoma as such Dr. Butler (GI doc) recommended no furthr testing. Presently symptoms freee ?possible renal cyst:? No such comment on MRI ?New onset AFib with rapid ventricular response: Responded well to IV cardizem in initallly and has converted to sinus. Cardiology is recommending anticoagulation with Xarelto...He is advised to avoid alcohol and he is agreable. History of diabetes: History of opiate dependence:? Patient on Suboxone.? Addiction Medicine consult.? History of GERD: Continue home PPI Time Spent with Patient Time attestation: Total time spent providing and/or coordinating discharge services: Discharge coordination time: Greater than 30 minutes Quality: Safe Use of Opioids Does Pt have an Active Cancer Diagnosis on the Problem List?: No Quality: Stroke Does the patient have a stroke diagnosis?: No Physical Exam Vital Signs: Vital Signs: Last Vital Signs Temp 98.4 F 03/12/22 12:30 Pulse 65 03/12/22 12:30 Resp 15 03/12/22 12:30 BP 115/65 03/12/22 12:30 Pulse Ox 94 03/12/22 12:02 BMI result Body Mass Index 33.3 DS: Data Data Completed and Pending Labs on day of discharge: Laboratory Results - last 24 hr 03/11/22 03/11/22 03/12/22 16:34 20:56 08:17 POC Glucose 268 H 301 H 200 H 03/12/22 10:46 POC Glucose 286 H Preliminary micro results at discharge 03/09/22 18:52 Blood Culture - Preliminary Blood - Venous No growth after 48 hours. 03/09/22 18:32 Blood Culture - Preliminary Blood - Venous No growth after 48 hours. Discharge Plan Discharge Anticipated Discharge Date/Time: 03/12/22 13:20 Patient Disposition: Home, Self-Care Discharge Diagnosis: AFIB with RVR and Heart failure Referrals: Sulaiman Chan PA [Primary Care Provider] - 1 Week Discharge Medications: New Xarelto 20 mg Tablet 20 mg PO DAILY@1700 Qty: 30 0RF Continued atorvastatin [Lipitor] 80 mg Tablet 40 mg PO DAILY 0RF aspirin 81 mg Tablet,Delayed Release (Dr/Ec) 81 mg PO DAILY 0RF nadolol 20 mg Tablet 20 mg PO DAILY 0RF pantoprazole [Protonix] 40 mg Tablet,Delayed Release (Dr/Ec) 40 mg PO BID 0RF furosemide 20 mg Tablet 20 mg PO DAILY 0RF gabapentin 100 mg Capsule 200 mg PO BEDTIME 0RF gabapentin 100 mg Capsule 100 mg PO DAILY 0RF buprenorphine-naloxone 8-2 mg Tablet, Sublingual 1 tab SUBLINGUAL DAILY 0RF lactulose 10 gram/15 mL Solution 30 ml PO Q8H PRN (Reason: Constipation) 0RF aripiprazole 2 mg Tablet 2 mg PO DAILY 0RF empagliflozin 25 mg Tablet 25 mg PO DAILY 0RF Discontinued amlodipine 10 mg Tablet 10 mg PO DAILY 0RF Discharge Orders: Discharge Order (Routine); Ordered 03/12/22 Ordered By: Christopher Keen Diet: advance to usual diet and diabetic diet Activity on Discharge: As tolerated Stand Alone Forms: Patient Portal Discharge page Care Plan Goals: Controll atrial fibrilation and stroke prevention Health Concerns: AFIB, chronic alcoholism, Cirrhosis Plan of Treatment: Take all you mredication as directed and follow up with your Doctor in a week continue insulin as before for diabetes Assessment: As abovr
[2022-03-12 13:38] LABS: Glucose, Whole Blood 264 mg/dL (60-115)
--- NOTE | 2022-03-12 13:45 | PC.NURSE ---
override insulin due to wasnt drawn up. Air in syringe.
== END 2022-03-12 20:09 | disposition home or self-care (01) | DRG 433 ==
LOC: HO.ED 19:08 → HO.EDOVER 20:03
PROVIDERS: Internal Medicine; Nurse Practitioner Family; Admitting Provider Hospitalist; Emergency Provider Emergency Medicine Emergency Medical Services; PCP Physician Assistant; Visit Provider Internal Medicine
DX: K74.60 Unspecified cirrhosis of liver (principal); F11.20 Opioid dependence, uncomplicated; E11.9 Type 2 diabetes mellitus without complications; K21.9 Gastro-esophageal reflux disease without esophagitis; N28.1 Cyst of kidney, acquired; I48.91 Unspecified atrial fibrillation; I10 Essential (primary) hypertension; Z86.19 Personal history of other infectious and parasitic diseases; Z79.82 Long term (current) use of aspirin; Z79.01 Long term (current) use of anticoagulants; Z79.899 Other long term (current) drug therapy
CPT/HCPCS: 36415; 74176; 74183; 80048; 80053; 81001; 82009; 82947; 83036; 83605; 83690; 83735; 84484; 85025; 87040; 87635; 93005; 93306; 99284; A9585; J1170; J2270; J2405; Q9957

== ENCOUNTER 2022-11-22 09:45 | Emergency (ER) | payer OTHER, SELFPAY ==
--- NOTE | ~2022-11-22 | CT_ITS ---
CT HEAD WITHOUT IV CONTRAST CT CERVICAL SPINE WITHOUT IV CONTRAST INDICATION: Fall. Head strike. COMPARISON: None available. TECHNIQUE: Multidetector CT acquisitions of the head, maxillofacial region, and cervical spine were obtained without IV contrast. Multiplanar reformats were acquired and utilized for image interpretation. This CT examination was performed using dose optimization techniques as appropriate, variously including the following: *Automated exposure control *Adjustment of mA and/or kV according to patient size (this includes techniques or standardized protocols for targeted exams where dose is matched to indication/reason for exam; i.e. extremities or head) *Use of iterative reconstruction technique FINDINGS: HEAD: There is no intracranial hemorrhage, hydrocephalus, extra-axial surface collection, midline shift, or other herniation pattern. [place] to white matter differentiation is diffusely maintained without evidence of an evolved acute territorial infarct. The basilar cisterns are preserved. No significant soft tissue abnormality. No acute osseous abnormality. Right maxillary sinus is nearly completely opacified. Left sphenoid sinus is also completely opacified. CERVICAL SPINE: Straightening of the cervical lordosis. Mild degenerative anterior subluxation of C3 on C4 and C4 on C5. There are no acute fractures and there are no acute subluxations. There is multilevel hypertrophic facet arthropathy. Severe disc volume loss at C6-C7 and moderate disc volume loss at C5-C6. Hypertrophic degenerative changes involving the atlantodental interval. There is no prevertebral soft tissue swelling. CT/CT cervical spine wo IV con IMPRESSION: - No acute intracranial findings. - No acute osseous findings within the cervical spine. Advanced cervical spondylosis. - Right maxillary sinus is nearly completely opacified. Left sphenoid sinus is also completely opacified.
--- NOTE | ~2022-11-22 | CT_ITS ---
CT HEAD WITHOUT IV CONTRAST CT CERVICAL SPINE WITHOUT IV CONTRAST INDICATION: Fall. Head strike. COMPARISON: None available. TECHNIQUE: Multidetector CT acquisitions of the head, maxillofacial region, and cervical spine were obtained without IV contrast. Multiplanar reformats were acquired and utilized for image interpretation. This CT examination was performed using dose optimization techniques as appropriate, variously including the following: *Automated exposure control *Adjustment of mA and/or kV according to patient size (this includes techniques or standardized protocols for targeted exams where dose is matched to indication/reason for exam; i.e. extremities or head) *Use of iterative reconstruction technique FINDINGS: HEAD: There is no intracranial hemorrhage, hydrocephalus, extra-axial surface collection, midline shift, or other herniation pattern. [place] to white matter differentiation is diffusely maintained without evidence of an evolved acute territorial infarct. The basilar cisterns are preserved. No significant soft tissue abnormality. No acute osseous abnormality. Right maxillary sinus is nearly completely opacified. Left sphenoid sinus is also completely opacified. CERVICAL SPINE: Straightening of the cervical lordosis. Mild degenerative anterior subluxation of C3 on C4 and C4 on C5. There are no acute fractures and there are no acute subluxations. There is multilevel hypertrophic facet arthropathy. Severe disc volume loss at C6-C7 and moderate disc volume loss at C5-C6. Hypertrophic degenerative changes involving the atlantodental interval. There is no prevertebral soft tissue swelling. CT/CT head/brain wo IV con IMPRESSION: - No acute intracranial findings. - No acute osseous findings within the cervical spine. Advanced cervical spondylosis. - Right maxillary sinus is nearly completely opacified. Left sphenoid sinus is also completely opacified.
--- NOTE | ~2022-11-22 | CT_ITS ---
EXAMINATION: CT CHEST WITHOUT CONTRAST CT ABDOMEN AND PELVIS WITHOUT CONTRAST CLINICAL INFORMATION: Trauma. Fall, back pain. COMPARISON: 03/09/2022 TECHNIQUE: Multidetector volumetric imaging was performed through the chest, abdomen and pelvis without contrast. Sagittal and coronal reformatted images were obtained on the technologist's workstation. Axial MIP volume rendering provided. This CT examination was performed using dose optimization techniques as appropriate, variously including the following: *Automated exposure control *Adjustment of mA and/or kV according to patient size (this includes techniques or standardized protocols for targeted exams where dose is matched to indication/reason for exam; i.e. extremities or head) *Use of iterative reconstruction technique DLP: 1244 mGy-cm. FINDINGS: CHEST: Lungs: The central airways are patent. No consolidation. Dependent atelectasis bilaterally. No pleural effusion or pneumothorax. There are no pulmonary parenchymal nodules. Mediastinum: The heart is of normal size. There is no pericardial effusion. Central vascular structures are unremarkable. No hilar or mediastinal lymphadenopathy. Coronary Artery Calcification: Present. Chest Wall/Axilla: No lymphadenopathy. No chest wall mass. Bilateral gynecomastia. ABDOMEN/PELVIS: Liver, Gallbladder, Biliary Tree: Cirrhotic liver morphology. No focal liver lesion. No biliary ductal dilatation. Cholecystectomy. Pancreas: Mild atrophy with no focal abnormality. Spleen: Prominent spleen measures 14.5 cm. Adrenal Glands: Unremarkable. Kidneys and Ureters: The kidneys are normal in size, shape, and attenuation. No hydronephrosis, hydroureter or calculi seen. No perinephric stranding. Bladder: Unremarkable. Gastrointestinal Tract: The stomach and small bowel appear unremarkable. No dilated loops of bowel or evidence of obstruction. No diverticulosis. No colonic wall thickening or adjacent inflammatory changes. No free air or free fluid. The appendix is unremarkable. Abdominal Wall: Small fat-containing ventral abdominal wall hernias. Lymphovascular Structures: Lymph nodes: Normal. Vascular: Normal caliber aorta. Moderate atherosclerotic calcification. Pelvic Viscera: The prostate and seminal vesicles are unremarkable. OSSEOUS STRUCTURES: No suspicious sclerotic or lytic bone lesions are identified. Degenerative change throughout the spine. Multilevel vacuum disc phenomenon. Mild degenerative changes of both hips. The ribs are intact. Vertebral body heights are maintained. CT/CT abdomen pelvis wo IV con IMPRESSION: 1. No acute traumatic finding of the chest, abdomen, or pelvis. 2. Cirrhotic liver. Mild splenomegaly.
[2022-11-22 09:49] VITALS: BP 157/88; PULSE 76; RESP 18; TEMP 35.7; O2SAT 96; BMI 31.1
--- NOTE | 2022-11-22 10:45 | ED_ITS ---
HPI - Fall General Chief Complaint: Fall Stated Complaint: fall Time Seen by Provider: 11/22/22 10:33 Source: patient Mode of arrival: ambulatory History of Present Illness HPI Narrative: This is a 66 years old male presented to the emergency department after a fall. Coming he stated he was trying to get up from the chair and fell he is complaining of neck pain upper back pain, he is anticoagulated with warfarin for atrial fibrillation. A baseline he has difficulty ambulating because of the left lower extremity weakness MD complaint: fall Onset (ago): hour(s) (1) Fall from: standing Fall witnessed: no Place fall occurred: home Loss of consciousness: none Prolonged down time: no Context: tripped/slipped Related Data Home Medications Medication Instructions Recorded Confirmed aripiprazole 2 mg tablet 2 mg PO DAILY 03/09/22 03/09/22 aspirin 81 mg tablet,delayed 81 mg PO DAILY 03/09/22 03/09/22 release atorvastatin 80 mg tablet (Lipitor) 40 mg PO DAILY 03/09/22 03/09/22 buprenorphine 8 mg-naloxone 2 mg 1 tab sublingual DAILY 03/09/22 03/09/22 sublingual tablet empagliflozin 25 mg tablet 25 mg PO DAILY 03/09/22 03/09/22 furosemide 20 mg tablet 20 mg PO DAILY 03/09/22 03/09/22 gabapentin 100 mg capsule 100 mg PO DAILY 03/09/22 03/09/22 gabapentin 100 mg capsule 200 mg PO BEDTIME 03/09/22 03/09/22 lactulose 10 gram/15 mL oral 30 ml PO Q8H PRN Constipation 03/09/22 03/09/22 solution nadolol 20 mg tablet 20 mg PO DAILY 03/09/22 03/09/22 pantoprazole 40 mg tablet,delayed 40 mg PO BID 03/09/22 03/09/22 release (Protonix) Previous Rx's Medication Instructions Recorded rivaroxaban 20 mg tablet (Xarelto) 20 mg PO DAILY@1700 #30 tabs 03/12/22 Allergies Allergy/AdvReac Type Severity Reaction Status Date / Time No Known Allergies Allergy Verified 02/13/21 15:23 Review of Systems Review of Systems: Yes all other systems are reviewed and are negative Cardiovascular: Cardiovascular: Reports no additional cardiovascular complain ts Respiratory: Respiratory: Reports no additional respiratory complaints Gastrointestinal: Gastrointestinal: Reports no additional gastrointestinal complaints [facility] Past Medical History [facility] Narrative: Atrial fibrillation,DJD, diabetes liver disease Medical History Cholecystectomy planned Cirrhosis Diabetes HTN (hypertension) Social History Social History Smoked in Last 30 Days: No Use of substances other than those prescribed or required for medical reasons: No Any prior treatment program specific to substance use: No Advance Directives: No service: Yes Current occupational status: disabled Physical Exam Vital Signs: Vital Signs: Last Vital Signs Temp 97.8 F 11/22/22 16:00 Pulse 67 11/22/22 16:00 Resp 16 11/22/22 16:00 BP 140/77 H 11/22/22 16:00 Pulse Ox 98 11/22/22 16:00 O2 Del Method 11/22/22 16:00 BMI result Body Mass Index 31.1 Const: General: cooperative, comfortable, no acute distress, well developed, alert, awake and Physically active Nutritional Appearance: average body habitus Orientation/consciousness: patient oriented x3 Limitations: no limitations HEENT: Head: Yes normal to inspection General nose exam: Normal external nose present Face and sinus: Yes normal facial exam Mouth: Normal oral and palatal mucosa present Throat: Yes posterior oropharynx normal Neck: Other: Tenderness in the posterior neck Chest: Chest palpation & inspection: normal inspection of the chest Resp: Effort & Inspection: normal respiratory effort Auscultation: clear to auscultation bilaterally Cardio: Jugular venous distension: no JVD Rate: regular rate Rhythm: regular rhythm GI: Inspection: Yes normal to inspection Palpation (GI): Soft to palpation, not firm and nontender Auscultation: normal bowel sounds Skin: General skin exam: no rashes or lesions noted, elasticity normal and turgor normal Lesions: no lesions Rashes: no rashes Trauma: no lacerations or abrasions Neuro: General: patient oriented x3 Cranial nerves: Yes CN's II-XII intact bilaterally Course Reevaluation(s) Reevaluation #1: failed PT will consult DENNIS Time: 16:31 Reevaluation #2: signed out to Dr Moore Time: 16:32 Medications Administered Discontinued Medications Generic Name Dose Route Start Last Admin Trade Name Freq PRN Reason Stop Dose Admin Oxycodone HCl 10 mg 11/22/22 10:43 11/22/22 10:52 Oxycodone Hcl Immed Release 5 Mg Tablet PO 11/22/22 10:44 10 mg ONCE ONE Administration Oxycodone HCl 5 mg 11/22/22 15:35 11/22/22 15:39 Oxycodone Hcl Immed Release 5 Mg Tablet PO 11/22/22 15:36 5 mg ONCE ONE Administration Medical Decision Making Medical Decision Making [facility] Narrative: Patient presented after a fall he is anticoagulated with warfarin will do a head CT C-spine will check his blood work including INR Differential Diagnosis Differential Diagnoses: The differential diagnosis associated with the presentation includes Head bleed/C-spine fracture/thoracic fracture Admission/Observation Consideration of admission/observation: Escalation of care including admission/observation considered Lab Data 11/22/22 11:13 11/22/22 11:13 Labs: Lab Results 11/22/22 11/22/22 11/22/22 Range/Units 11:13 11:13 11:13 WBC 8.9 (4.8-10.8) X10*3/uL RBC 5.52 (4.60-5.80) X10*6/uL Hgb 14.4 (14.0-18.0) g/dl Hct 44.4 (42.0-52.0) % MCV 80.4 (80.0-98.0) fL MCH 26.1 L (27.0-33.0) pg MCHC 32.4 (31.0-36.0) g/dl RDW 14.2 (11.0-16.0) % Plt Count 155 L (160-400) X10*3/uL MPV 10.6 (9.4-12.4) fL Immature Gran % (Auto) 0.3 (0.0-0.4) % Neut % (Auto) 68.0 (45-73) % Lymph % (Auto) 21.1 (20-40) % Teller % (Auto) 8.5 (2-11) % Eos % (Auto) 1.8 (0-4) % Baso % (Auto) 0.3 (0-2) % Lymph # (Auto) 1.9 (1.2-4.9) X10*3/uL Teller # (Auto) 0.8 (0.1-1.2) X10*3/uL Eos # (Auto) 0.2 (0.0-0.4) X10*3/uL Baso # (Auto) 0.0 (0.0-0.2) X10*3/uL Abs Immat Gran (auto) 0.03 (0.00-0.03) X10*3/uL Absolute Neuts (auto) 6.0 (2.0-8.3) x10*3/uL Absolute Nucleated RBC 0.000 (0.0-0.012) X10*3/uL Nucleated RBC % (auto) 0.0 (0.0-0.2) /100WBC PT 26.1 H (10.0-13.1) SEC INR 2.2 H (0.9-1.1) Sodium 139 (135-145) mmol/L Potassium 4.0 (3.3-5.1) mmol/L Chloride 103 (96-108) mmol/L Carbon Dioxide 23 (22-29) mmol/L Anion Gap 17 (12-20) BUN 15 (9-16) mg/dL Creatinine 0.84 (0.5-1.4) mg/dL Estim Creat Clear Calc 93.1 Estimated GFR > 60 Random Glucose 261 H (60-115) mg/dL Calcium 8.9 (8.4-10.2) mg/dL Total Bilirubin 2.1 H (0.0-1.0) mg/dL AST 20 (5-37) U/L ALT 15 (0-40) U/L Alkaline Phosphatase 119 H (39-117) U/L Total Protein 7.1 (6.5-8.0) g/dL Albumin 3.6 (3.5-5.0) g/dL Discharge Plan Discharge Clinical Impression: Fall, Abnormal gait, Contusion Patient Disposition: Still a Patient Prescriptions: No Action atorvastatin [Lipitor] 80 mg Tablet 40 mg PO DAILY aspirin 81 mg Tablet,Delayed Release (Dr/Ec) 81 mg PO DAILY nadolol 20 mg Tablet 20 mg PO DAILY pantoprazole [Protonix] 40 mg Tablet,Delayed Release (Dr/Ec) 40 mg PO BID furosemide 20 mg Tablet 20 mg PO DAILY gabapentin 100 mg Capsule 200 mg PO BEDTIME gabapentin 100 mg Capsule 100 mg PO DAILY buprenorphine-naloxone 8-2 mg Tablet, Sublingual 1 tab SUBLINGUAL DAILY lactulose 10 gram/15 mL Solution 30 ml PO Q8H PRN (Reason: Constipation) aripiprazole 2 mg Tablet 2 mg PO DAILY empagliflozin 25 mg Tablet 25 mg PO DAILY Xarelto 20 mg Tablet 20 mg PO DAILY@1700 Qty: 30 0RF
[2022-11-22] MEDS: oxyCODONE HCl Immed Release 5 MG TABLET 10 MG PO (10:52)
[2022-11-22 11:17] LABS: MANUAL DIFF FLAG NO
[2022-11-22 11:22] LABS: Basophils Percent Auto 0.3 % (0-2); Eosinophils Absolute Auto 0.2 X10*3/uL (0.0-0.4); Eosinophils Percent Auto 1.8 % (0-4); Hematocrit 44.4 % (42.0-52.0); Hemoglobin 14.4 g/dl (14.0-18.0); Imm Gran Abs Auto 0.03 X10*3/uL (0.00-0.03); Imm Gran Pct Auto 0.3 % (0.0-0.4); Lymphocytes Absolute Auto 1.9 X10*3/uL (1.2-4.9); Lymphocytes Percent Auto 21.1 % (20-40); Mean Corpuscular HGB Conc 32.4 g/dl (31.0-36.0); Mean Corpuscular Hemoglobin 26.1 pg (27.0-33.0); Mean Corpuscular Volume 80.4 fL (80.0-98.0); Mean Platelet Volume 10.6 fL (9.4-12.4); Monocytes Absolute Auto 0.8 X10*3/uL (0.1-1.2); Monocytes Percent Auto 8.5 % (2-11); Platelet Count 155 X10*3/uL (160-400); Red Blood Count 5.52 X10*6/uL (4.60-5.80); Red Cell Distribution Width 14.2 % (11.0-16.0); White Blood Count 8.9 X10*3/uL (4.8-10.8)
[2022-11-22 11:29] LABS: INTERNATIONAL NORM RATIO 2.2 (0.9-1.1); Prothrombin Time 26.1 SEC (10.0-13.1)
[2022-11-22 12:01] LABS: Alanine Aminotransferase 15 U/L (0-40); Albumin Level 3.6 g/dL (3.5-5.0); Alkaline Phosphatase 119 U/L (39-117); Anion Gap 17 (12-20); Aspartate Amino Transferase 20 U/L (5-37); Bilirubin Total 2.1 mg/dL (0.0-1.0); Blood Urea Nitrogen 15 mg/dL (9-16); Calcium 8.9 mg/dL (8.4-10.2); Carbon Dioxide 23 mmol/L (22-29); Chloride 103 mmol/L (96-108); Creatinine Clr Calc Pharmacy 93.1; Estimated Glomerular Filt Rate > 60; Glucose Random 261 mg/dL (60-115); Sodium 139 mmol/L (135-145); Total Protein 7.1 g/dL (6.5-8.0)
[2022-11-22] MEDS: oxyCODONE HCl Immed Release 5 MG TABLET PO (15:39)
[2022-11-22 16:00] VITALS: BP 140/77; PULSE 67; RESP 16; TEMP 36.6; O2SAT 98
[2022-11-22 17:55] VITALS: BP 170/79; PULSE 63; RESP 16; TEMP 36.8; O2SAT 98
--- NOTE | 2022-11-22 18:59 | MHC.CM.ED ---
CM met with patient in need of Acute Rehab. Fall and left lower leg weakness. Pt has been independent at home, with worsening pain over the past 4 days. Pt lives with his daughter and her family. Has a walker/rollator that he normally uses in the community, and not at home. Has a PARKER 15 hours/wk with [facility]. Moderna x2/boosters x2. Pt states he is 100% Vet connected. Pt states he also had Medicare, but does not have his medicare card with him. Registration is aware. No HCP on file. HCP reviewed, completed and signed. Copies given. Uploaded into [facility]. HCP/ex- Zachery Lockett ([phone]). PT is recommending Acute Rehab. Pt is agreeable. Referrals made to 3 local acute rehabs. Covid screening pending. CM will follow for discharge planning.
--- NOTE | 2022-11-22 19:02 | PC.NURSE ---
Report received from FLORENCOI Tarango
--- NOTE | 2022-11-22 19:56 | PHA.MEDREC ---
med rec completed. spoke with patient and received medication list from [place]. some medications have not been filled for a few months but patient claims he still takes them. Pharmacy Consult ? Medication Reconciliation Pharmacy has completed the medication reconciliation.
[2022-11-22 22:31] LABS: Influenza A PCR NEGATIVE (Negative); Influenza B PCR NEGATIVE (Negative); Resp Syncy Virus RNA Qual PCR NEGATIVE (Negative); SARS COV2 PCR INHOUSE POSITIVE (Negative)
[2022-11-23 00:01] VITALS: BP 157/68; PULSE 75; RESP 16; TEMP 36.4; O2SAT 93
[2022-11-23 05:47] VITALS: BP 136/66; PULSE 67; RESP 20; TEMP 37.3; O2SAT 94
[2022-11-23] MEDS: oxyCODONE HCl Immed Release 5 MG TABLET PO ×3 (05:48→20:44)
[2022-11-23 07:09] LABS: Glucose, Whole Blood 162 mg/dL (60-115)
[2022-11-23] MEDS: amLODIPine Besylate 2.5 MG TABLET PO (07:29)
[2022-11-23] MEDS: Omeprazole 20 MG CAPSULE.DR PO (07:29)
[2022-11-23] MEDS: Empagliflozin 25 MG TABLET PO (07:30)
[2022-11-23] MEDS: Atorvastatin Calcium 40 MG TABLET PO (07:30)
[2022-11-23] MEDS: Furosemide 40 MG TABLET PO (07:30)
[2022-11-23] MEDS: FLUoxetine HCl 20 MG CAPSULE 40 MG PO (07:30)
[2022-11-23] MEDS: Insulin Lispro 100 UNIT/ML 3 ML VIAL 20 UNIT SUBCUT (07:30)
[2022-11-23] MEDS: Amoxicillin/Potassium Clav 875 MG TABLET PO ×2 (07:41→20:44)
[2022-11-23] MEDS: ARIPiprazole 2 MG TABLET PO (08:20)
--- NOTE | 2022-11-23 08:22 | PC.NURSE ---
Patient resting comfortably no distress noted flat affect noted remains on precautions for Covid will CTM
[2022-11-23] MEDS: nadoloL 20 MG TABLET PO (09:23)
[2022-11-23 10:05] VITALS: BP 133/64; PULSE 68; RESP 18; TEMP 37.3; O2SAT 94
--- NOTE | 2022-11-23 11:36 | MHC.CM.ED ---
Addendum entered by Roselyn Ferguson 11/23/22 14:02: [facility] asking patient Sub[facility] on [facility] med list from [facility]. Per patient, he no longer takes suboxone. Original Note: Patient remains in ER overflow. 11/22 Covid test is positive. None of the 3 acute rehabs are able to offer a bed. Referral broadcasted to all facillties within 20 miles of patient's address that accept positive Covid patients. Patient also has Medicare ID#[id number]. Continue to monitor for d/c needs.
[2022-11-23 11:49] LABS: Glucose, Whole Blood 94 mg/dL (60-115)
[2022-11-23 11:57] LABS: INTERNATIONAL NORM RATIO 2.1 (0.9-1.1); Prothrombin Time 25.2 SEC (10.0-13.1)
--- NOTE | 2022-11-23 12:04 | PC.NURSE ---
Notified MONICO Pelaez patient BS 94 will hold insulin for [id number]
--- NOTE | 2022-11-23 15:19 | PC.NURSE ---
[facility] notified patient concerned for constipation awaiting orders.
[2022-11-23 16:00] VITALS: BP 122/70; PULSE 62; RESP 18; TEMP 37.4; O2SAT 95
[2022-11-23 16:02] LABS: Glucose, Whole Blood 194 mg/dL (60-115)
--- NOTE | 2022-11-23 16:06 | PC.NURSE ---
Patient does not want to take ordered lactulose for constipation also will hold 1630 lispro for BS will CTM
[2022-11-23] MEDS: polyethylene glycoL 3350 17 GM POWD.PACK PO (16:36)
[2022-11-23] MEDS: Warfarin Sodium 2.5 MG TABLET PO (17:20)
[2022-11-23] MEDS: Insulin Glargine,Hum.rec.anlog 100 UNIT/ML 10 ML VIAL 60 UNIT SUBCUT (20:56)
[2022-11-23 21:14] VITALS: BP 137/71; PULSE 65; RESP 18; TEMP 37.8; O2SAT 97
[2022-11-24 03:57] LABS: Glucose, Whole Blood 194 mg/dL (60-115)
[2022-11-24] MEDS: oxyCODONE HCl Immed Release 5 MG TABLET PO ×3 (04:25→19:29)
[2022-11-24 06:37] VITALS: BP 125/74; PULSE 67; RESP 16; TEMP 36.8; O2SAT 94
[2022-11-24 07:14] LABS: Glucose, Whole Blood 140 mg/dL (60-115)
[2022-11-24] MEDS: Omeprazole 20 MG CAPSULE.DR PO (07:57)
[2022-11-24] MEDS: Furosemide 40 MG TABLET PO (07:57)
[2022-11-24] MEDS: Atorvastatin Calcium 40 MG TABLET PO (07:58)
[2022-11-24] MEDS: Empagliflozin 25 MG TABLET PO (07:58)
[2022-11-24] MEDS: FLUoxetine HCl 20 MG CAPSULE 40 MG PO (07:58)
[2022-11-24] MEDS: ARIPiprazole 2 MG TABLET PO (07:58)
[2022-11-24] MEDS: amLODIPine Besylate 2.5 MG TABLET PO (07:58)
[2022-11-24] MEDS: Amoxicillin/Potassium Clav 875 MG TABLET PO ×2 (07:58→21:01)
--- NOTE | 2022-11-24 09:38 | PC.NURSE ---
pharmacy contacted [place] [facility]
[2022-11-24] MEDS: Lactulose 20 GM/30 ML SOLUTION PO (11:10)
--- NOTE | 2022-11-24 11:14 | PC.NURSE ---
pt states he has not had BM in 7 days. PRN lactulose given
[2022-11-24 13:20] LABS: INTERNATIONAL NORM RATIO 1.9 (0.9-1.1); Prothrombin Time 22.3 SEC (10.0-13.1)
[2022-11-24 13:22] LABS: Glucose, Whole Blood 151 mg/dL (60-115)
--- NOTE | 2022-11-24 14:16 | MHC.CM.ED ---
Patient remains in ER overflow. Patient reports last taking Suboxone over a week ago. Patient tested positive for Covid on 11/22. No positive Covid beds are available at this time. Will refer out 50 miles. Continue to monitor for d/c needs.
[2022-11-24 15:01] VITALS: BP 122/58; PULSE 66; RESP 16; TEMP 37.4; O2SAT 96
--- NOTE | 2022-11-24 15:15 | MHC.CM.ED ---
Received telephone call from Nery at [facility]. Patient's ex-/HCP, Zachery called to tried to get patient into their [facility] program. T/W explained patient's Covid test on 11/22 was positive for Covid. [facility] will not have a bed before next week. Nery is requesting form be completed by patient and [facility] [place]. This form was faxed to . CM will meet with patient to complete this form. Received telephone call from patient's ex-/HCP, Zachery. She can be reached via telephone at [phone]. T/W let Zachery know patient tested positive for Covid on 11/22 and that is what is causing delay in placement. Zachery states patient tested positive for Covid at the [facility] prior to 11/22. T/W spoke with Nery at the [facility]. Patient tested positive for Covid on 11/17. Copy of lab results faxed to T/W. Patient will not be considered Covid recovered before 11/28. Anticipate placement will not be found before then. Referral broadcasted within 50 miles to all facilities that can accept positive Covid patients. Continue to monitor for d/c needs.
--- NOTE | 2022-11-24 16:52 | MHC.CM.ED ---
Received call from Xiomara at [facility] offering patient a bed for tomorrow 11/25. [facility] BLS booked for 9am per Ryland request. Zachery, [place], aware. MONICO, RN and community organization worker aware. Paper work on chart. CM will follow for discharge needs.
[2022-11-24 18:01] LABS: Glucose, Whole Blood 141 mg/dL (60-115)
[2022-11-24] MEDS: Warfarin Sodium 5 MG TABLET PO (18:12)
--- NOTE | 2022-11-24 19:15 | MHC.EDTECH ---
pt ambulated to the bathroom with a walker with minimal assistance. pt walked with the walker back to pt room and is requesting pain meds for his knee. rn aware.
[2022-11-24] MEDS: Insulin Glargine,Hum.rec.anlog 100 UNIT/ML 10 ML VIAL 60 UNIT SUBCUT (21:01)
[2022-11-24 21:05] VITALS: BP 131/76; PULSE 66; RESP 18; O2SAT 96
[2022-11-24] MEDS: QUEtiapine Fumarate 25 MG TABLET PO (21:06)
[2022-11-25] MEDS: oxyCODONE HCl Immed Release 5 MG TABLET PO (02:59)
[2022-11-25 06:00] VITALS: BP 123/67; PULSE 66; RESP 12; O2SAT 94
[2022-11-25 06:09] LABS: Glucose, Whole Blood 93 mg/dL (60-115)
[2022-11-25 07:21] LABS: Glucose, Whole Blood 91 mg/dL (60-115)
[2022-11-25] MEDS: Amoxicillin/Potassium Clav 875 MG TABLET PO (08:01)
[2022-11-25] MEDS: Atorvastatin Calcium 40 MG TABLET PO (08:01)
[2022-11-25] MEDS: Omeprazole 20 MG CAPSULE.DR PO (08:01)
[2022-11-25] MEDS: FLUoxetine HCl 20 MG CAPSULE 40 MG PO (08:01)
[2022-11-25] MEDS: nadoloL 20 MG TABLET PO (08:01)
[2022-11-25] MEDS: amLODIPine Besylate 2.5 MG TABLET PO (08:01)
[2022-11-25] MEDS: ARIPiprazole 2 MG TABLET PO (08:01)
[2022-11-25] MEDS: Empagliflozin 25 MG TABLET PO (08:01)
--- NOTE | 2022-11-25 09:31 | PC.NURSE ---
Report called and given to [facility] Margi MATIAS.
== END 2022-11-25 10:14 | disposition skilled nursing facility (03) ==
PROVIDERS: Emergency Medicine Emergency Medical Services; Emergency Provider Emergency Medicine; PCP Physician Assistant
DX: S10.93XA Contusion of unspecified part of neck, initial encounter (principal); I48.91 Unspecified atrial fibrillation; R26.81 Unsteadiness on feet; M54.50 Low back pain, unspecified; M54.2 Cervicalgia; R51.9 Headache, unspecified; M54.6 Pain in thoracic spine; W01.0XXA Fall on same level from slipping, tripping and stumbling without subsequent striking against object, initial encounter; Y93.9 Activity, unspecified; Y92.9 Unspecified place or not applicable; Y99.9 Unspecified external cause status; Z20.822 Contact with and (suspected) exposure to COVID-19; Z20.828 Contact with and (suspected) exposure to other viral communicable diseases; Z79.899 Other long term (current) drug therapy; Z79.01 Long term (current) use of anticoagulants
CPT/HCPCS: 0241U; 36415; 70450; 71250; 72125; 74176; 80053; 82947; 85025; 85610; 97162; 99285

== ENCOUNTER 2024-02-13 14:24 | Outpatient (REF) | payer OTHER, SELFPAY ==
[2024-02-13 14:44] LABS: MANUAL DIFF FLAG NO
[2024-02-13 15:47] LABS: Basophils Percent Auto 0.4 % (0-2); Eosinophils Absolute Auto 0.2 X10*3/uL (0.0-0.4); Eosinophils Percent Auto 3.5 % (0-4); Hematocrit 45.7 % (42.0-52.0); Hemoglobin 14.3 g/dl (14.0-18.0); Imm Gran Abs Auto 0.02 X10*3/uL (0.00-0.03); Imm Gran Pct Auto 0.4 % (0.0-0.4); Lymphocytes Absolute Auto 1.3 X10*3/uL (1.2-4.9); Lymphocytes Percent Auto 27.3 % (20-40); Mean Corpuscular HGB Conc 31.3 g/dl (31.0-36.0); Mean Corpuscular Hemoglobin 27.1 pg (27.0-33.0); Mean Corpuscular Volume 86.6 fL (80.0-98.0); Mean Platelet Volume 11.3 fL (9.4-12.4); Monocytes Absolute Auto 0.4 X10*3/uL (0.1-1.2); Monocytes Percent Auto 7.7 % (2-11); Neutrophils Absolute Auto 2.9 x10*3/uL (2.0-8.3); Neutrophils Percent Auto 60.7 % (45-73); Platelet Count 125 X10*3/uL (160-400); Red Blood Count 5.28 X10*6/uL (4.60-5.80); Red Cell Distribution Width 14.8 % (11.0-16.0); White Blood Count 4.8 X10*3/uL (4.8-10.8)
[2024-02-13 16:23] LABS: Alanine Aminotransferase 43 U/L (0-40); Albumin Level 3.9 g/dL (3.5-5.0); Anion Gap 14 (12-20); Aspartate Amino Transferase 65 U/L (5-37); Blood Urea Nitrogen 29 mg/dL (9-16); Calcium 9.2 mg/dL (8.4-10.2); Carbon Dioxide 25 mmol/L (22-29); Chloride 105 mmol/L (96-108); Estimated Glomerular Filt Rate > 60; Glucose Random 264 mg/dL (60-115); Potassium 4.6 mmol/L (3.3-5.1); Sodium 139 mmol/L (135-145); Total Protein 7.3 g/dL (6.5-8.0)
[2024-02-13 16:36] LABS: Alkaline Phosphatase 141 U/L (39-117)
[2024-02-13 16:55] LABS: Prostate Specific Antigen 0.15 ng/mL (<0.05-4.0)
== END 2024-02-13 14:25 | disposition home or self-care (01) ==
LOC: HO.LAB 14:24
PROVIDERS: PCP Physician Assistant; Visit Provider Urology
DX: Z12.5 Encounter for screening for malignant neoplasm of prostate (principal); R31.0 Gross hematuria
CPT/HCPCS: 36415; 80053; 84153; 85025

== ENCOUNTER 2025-02-27 08:25 | Outpatient (REF) | payer OTHER, SELFPAY ==
--- NOTE | ~2025-02-27 | FL_ITS ---
EXAMINATION: XR BARIUM SWALLOW CLINICAL INFORMATION: Nausea and vomiting. COMPARISON: None available. TECHNIQUE: Routine barium swallow was performed in upright view with thick barium and barium coated saltine crackers. Patient was subsequently placed in prone position and thin barium was administered. FINDINGS: Following oral administration of thick barium there is normal propagation bolus from the oral cavity through the pharynx, esophagus into stomach without any evidence of obstruction, narrowing or stricture. No extrinsic compression seen. On oral administration of thick barium and saltine crackers is normal oral mastication and propagation bolus from the oral cavity through the pharynx, esophagus into stomach without obstruction or narrowing. There is mild retention of solid food in the valleculae which clears with subsequent swallowing. No laryngeal penetration or aspiration seen. On placing patient in prone lying and oral administration of thin barium there is good distention of the entire esophagus without any intraluminal filling defect. The GE junction is widely patent. On placing patient in supine lying trace gastroesophageal reflux noted. No hiatal hernia seen. FLUOROSCOPY TIME: 1 minute 29 seconds DOSE AREA PRODUCT: 1429 uGy-m2 (microgray-meter squared) FL/FL barium swallow IMPRESSION: Trace gastroesophageal reflux without hiatal hernia. Rest of the barium swallow is unremarkable. Electronically signed by: Gerson Zamorano MD 02/27/2025 02:24 PM EDT
[2025-02-27 09:15] LABS: MANUAL DIFF FLAG NO
[2025-02-27 09:29] LABS: Basophils Percent Auto 0.4 % (0-2); Eosinophils Absolute Auto 0.3 X10*3/uL (0.0-0.4); Eosinophils Percent Auto 3.7 % (0-4); Hematocrit 43.6 % (42.0-52.0); Hemoglobin 14.2 g/dl (14.0-18.0); Imm Gran Abs Auto 0.03 X10*3/uL (0.00-0.03); Imm Gran Pct Auto 0.4 % (0.0-0.4); Lymphocytes Absolute Auto 2.4 X10*3/uL (1.2-4.9); Lymphocytes Percent Auto 31.4 % (20-40); Mean Corpuscular HGB Conc 32.6 g/dl (31.0-36.0); Mean Corpuscular Hemoglobin 28.2 pg (27.0-33.0); Mean Corpuscular Volume 86.7 fL (80.0-98.0); Monocytes Absolute Auto 0.6 X10*3/uL (0.1-1.2); Monocytes Percent Auto 8.1 % (2-11); Neutrophils Absolute Auto 4.3 x10*3/uL (2.0-8.3); Platelet Count 154 X10*3/uL (160-400); Red Blood Count 5.03 X10*6/uL (4.60-5.80); Red Cell Distribution Width 16.1 % (11.0-16.0); White Blood Count 7.7 X10*3/uL (4.8-10.8)
[2025-02-27 10:11] LABS: Alanine Aminotransferase 58 U/L (0-40); Albumin Level 3.6 g/dL (3.5-5.0); Alkaline Phosphatase 140 U/L (39-117); Anion Gap 11 (12-20); Aspartate Amino Transferase 53 U/L (5-37); Bilirubin Total 1.4 mg/dL (0.0-1.0); Blood Urea Nitrogen 19 mg/dL (9-16); Calcium 9.1 mg/dL (8.4-10.2); Carbon Dioxide 23 mmol/L (22-29); Chloride 109 mmol/L (96-108); Estimated Glomerular Filt Rate > 60; Glucose Random 180 mg/dL (60-115); Potassium 4.1 mmol/L (3.3-5.1); Sodium 139 mmol/L (135-145); Total Protein 6.5 g/dL (6.5-8.0)
== END 2025-02-27 08:26 | disposition home or self-care (01) ==
LOC: HO.XRAY 08:25
PROVIDERS: Absent Provider Urology; PCP Nurse Practitioner Family; Visit Provider Nurse Practitioner Family
DX: R31.0 Gross hematuria (principal); R11.2 Nausea with vomiting, unspecified
CPT/HCPCS: 36415; 74220; 80053; 85025

== ENCOUNTER → 2025-02-27 08:27 | Outpatient (BNV) | payer OTHER, SELFPAY | PROVIDERS: Absent Provider Urology; PCP Nurse Practitioner Family; Visit Provider Radiology Diagnostic Radiology | DX: K21.9 Gastro-esophageal reflux disease without esophagitis (principal) | CPT/HCPCS: 74220 ==

== ENCOUNTER 2025-07-01 13:22 | Outpatient (REF) | payer OTHER, SELFPAY ==
[2025-07-01 13:42] LABS: MANUAL DIFF FLAG NO
[2025-07-01 14:30] LABS: Hematocrit 42.9 % (42.0-52.0); Hemoglobin 14.2 g/dl (14.0-18.0); Imm Gran Abs Auto 0.01 X10*3/uL (0.00-0.03); Imm Gran Pct Auto 0.2 % (0.0-0.4); Lymphocytes Absolute Auto 1.3 X10*3/uL (1.2-4.9); Mean Corpuscular HGB Conc 33.1 g/dl (31.0-36.0); Mean Corpuscular Hemoglobin 28.1 pg (27.0-33.0); Mean Corpuscular Volume 84.8 fL (80.0-98.0); NRBC Abs Auto 0.000 X10*3/uL (0.0-0.012); NRBC Pct Auto 0.0 /100WBC (0.0-0.2); Platelet Count 115 X10*3/uL (160-400); Red Blood Count 5.06 X10*6/uL (4.60-5.80); White Blood Count 4.5 X10*3/uL (4.8-10.8)
[2025-07-01 14:32] LABS: INTERNATIONAL NORM RATIO 1.5 (0.9-1.1); Prothrombin Time 17.4 SEC (10.9-12.4)
[2025-07-01 14:39] LABS: Anion Gap 12 (12-20); Blood Urea Nitrogen 17 mg/dL (9-16); Calcium 9.2 mg/dL (8.4-10.2); Carbon Dioxide 32 mmol/L (22-29); Chloride 102 mmol/L (96-108); Estimated Glomerular Filt Rate > 60; Potassium 3.8 mmol/L (3.3-5.1); Sodium 142 mmol/L (135-145)
--- OUTSIDE RECORDS SUMMARY | 2025-07-01 17:19 | XMS_ITS | Encounter Summary ---
Author Organization [facility] Address [address] [place] [address] Phone Care Team Providers Care Display Director Name Role Phone Sulaiman Chan Primary Care Provid er Sulaiman Chan Primary Care Provid er rCistal Arroyo NP Primary Care Provid er Encounter Details Date Type Department Care Team (Late st Contact Info) Description 08/03/2018 Procedure Pass [facility], [address] [address] Social History Tobacco Use Types Packs/Day Years Used Date Smoking Tobacco: Never Smokeless Tobacco: Never Sex and Gender Information Value Date Recorded Sex Assigned at Male 10/25/2019 10:57 PM EST Legal Sex Male 9:57 PM EDT Gender Identity Male 10/25/2019 10:57 PM EST Sexual Orientation Don't know 05/01/2024 1: 07 PM EDT documented as of this encounter Plan of Treatment Upcoming Encounters Date Type Department Care Team (Late st Contact Info) Description 07/22/2025 1:00 PM EDT Nurse Only [facility] [address] Floor, [address] [place] [address] Emerson Sanchez MD [address] [place] [phone] 08/26/2025 3:20 PM EST Office Visit [facility] [address] Floor, [address] [place] [address] Emerson Sanchez MD [address] [place] [phone] [email or web address] documented as of this encounter Visit Diagnoses Not on filedocumented in this encounter Additional Health Concerns Infection Onset Date Last Indicated Resolved Time CoV-Risk Comment:Neg covid 05/01/2024 05/01/2024 05/02/2024 11:55 AM EDT documented as of this encounter Care Teams Display Director Relationship Specialty Start Date End Date Sulaiman Chan PA PCP - General 08/03/18 03/05/24 Sulaiman Chan PA [address] [place] [phone] PCP - General Physician Shredding Specialist 03/06/24 04/30/24 Cristal Arroyo NP [address] [place] [address] PCP - General Nurse Practitioner 05/01/24 documented as of this encounter Additional Source Comments The information contained in this document represents components of the legal health record. It is not the complete legal health record.[facility]
--- OUTSIDE RECORDS SUMMARY | 2025-07-01 17:19 | XMS_ITS | Encounter Summary ---
Author Organization [facility] Address [address] [place] [address] Phone Care Team Providers Care Accounts Executive Name Role Phone Cristal Arroyo NP Primary Care Provid er Encounter Details Date Type Department Care Team (Late st Contact Info) Description 05/23/2025 Procedure Pass [facility] [address] [place] [address] Social History Tobacco Use Types Packs/Day Years Used Date Smoking Tobacco: Never Smokeless Tobacco: Never Alcohol Use Standard Drinks/Week Comments No 0 (1 standard drink = 0.6 oz pur e alcohol) Home Health Assessment: Transportation Answer Date Recorded Lack of Transportation (Medical) No 08/13/2024 Lack of Transportation (Non-Medical) No 08/13/2024 Patient Unable or Declines to Respond No 08/13/2024 Education Answer Date Recorded Are you interested in more education? Not on preston e 02/10/2023 Are you concerned about learning? Not on file 02/10/2023 No 02/10/2023 No 02/10/2023 Digital Access Answer Date Recorded No 03/13/2023 No 03/13/2023 Reliable internet access at home? Not on file 03/13/2023 Device with a working camera? Not on file Intimate Partner Violence Answer Date R ecorded Are you denied basic needs s uch as food, clothing, or medical care? No 05/01/2024 In the past 12 months have y ou been in a relationship with a person who hurts, threatens, or tries to control you? No 05/01/2024 Are you denied basic needs s uch as food, clothing, or medical care? No 05/01/2024 In the past 12 months have y ou been in a relationship with a person who hurts, threatens, or tries to control you? No 05/01/2024 Sex and Gender Information Value Date Recorded Sex Assigned at Male 10/25/2019 10:57 PM EST Legal Sex Male 9:57 PM EDT Gender Identity Male 10/25/2019 10:57 PM EST Sexual Orientation Don't know 05/01/2024 1: 07 PM EDT documented as of this encounter Plan of Treatment Upcoming Encounters Date Type Department Care Team (Late st Contact Info) Description 07/22/2025 1:00 PM EDT Nurse Only [facility] [address] 3rd Floor, [address] [place] [address] Emerson Sanchez MD [address] [place] [phone] [email or web address] 08/26/2025 3:20 PM EST Office Visit [facility] [address], [address] [place] [address] Emerson Sanchez MD [address] [place] [address] [email or web address] documented as of this encounter Visit Diagnoses Not on filedocumented in this encounter Care Teams Accounts Executive Relationship Specialty Start Date End Date Cristal Arroyo NP [address] [place] [phone] PCP - General Nurse Practitioner 05/01/24 documented as of this encounter Additional Source Comments The information contained in this document represents components of the legal health record. It is not the complete legal health record.[facility]
--- OUTSIDE RECORDS SUMMARY | 2025-07-01 17:19 | XMS_ITS | Encounter Summary ---
Author Organization [facility] Address [address] [place] [phone] Phone Care Team Providers Care Merchandise Pickup/Receiving Associate Name Role Phone Sulaiman Chan Primary Care Provid er Cristal Arroyo NP Primary Care Provid er Encounter Details Date Type Department Care Team (Late st Contact Info) Description 03/19/2024 Procedure Pass [facility] Admitting Dept - Virtual Department [address] [place] [address] Social History Tobacco Use Types Packs/Day Years Used Date Smoking Tobacco: Never Smokeless Tobacco: Never Alcohol Use Standard Drinks/Week Comments No 0 (1 standard drink = 0.6 oz pur e alcohol) Home Health Assessment: Transportation Answer Date Recorded Lack of Transportation (Medical) No 03/21/2024 Lack of Transportation (Non-Medical) No 03/21/2024 Patient Unable or Declines to Respond No 03/21/2024 Education Answer Date Recorded Are you interested in more education? Not on preston e 02/10/2023 Are you concerned about learning? Not on file 02/10/2023 No 02/10/2023 No 02/10/2023 Digital Access Answer Date Recorded No 03/13/2023 No 03/13/2023 Reliable internet access at home? Not on file 03/13/2023 Device with a working camera? Not on file Sex and Gender Information Value Date Recorded Sex Assigned at Male 10/25/2019 10:57 PM EST Legal Sex Male 9:57 PM EDT Gender Identity Male 10/25/2019 10:57 PM EST Sexual Orientation Don't know 05/01/2024 1: 07 PM EDT documented as of this encounter Functional Status * Calculated C-SSRS Risk Score (Lifetime/Recent) Answer Date of Assessment Author No Risk Indicated 03/19/2024 6:01 PM EDT Shalini Troncoso RN * [place] Suicide Severity Rating Scale (Screener/Recent Self-Report) Question Answer Date of Assessment Author 1. Wish to be (Past 1 Month) No 024 6:01 PM EDT Shalini Troncoso RN 2. Non-Specific Active Suici vincent Thoughts (Past 1 Month) No 03/19/2024 6:01 PM EDT Dave Troncoso RN 6. Suicidal Behavior (Lifetime) No 6:01 PM EDT Shalini Troncoso RN documented as of this encounter Plan of Treatment Upcoming Encounters Date Type Department Care Team (Late st Contact Info) Description 07/22/2025 1:00 PM EDT Nurse Only [facility] [address] [place] [address] [address] [facility], [address] [place] [address] Emerson Sanchez MD [address] [place] [phone] 08/26/2025 3:20 PM EST Office Visit [facility] [address]rd Floor, [address] [place] [address] Emerson Sanchez MD [address] [place] [address] documented as of this encounter Visit Diagnoses Not on filedocumented in this encounter Additional Health Concerns Infection Onset Date Last Indicated Resolved Time CoV-Risk Comment:Neg covid 05/01/2024 05/01/2024 05/02/2024 11:55 AM EDT documented as of this encounter Care Teams Merchandise Pickup/Receiving Associate Relationship Specialty Start Date End Date Sulaiman Chan PA [address] [place] [phone] PCP - General Physician Category Director 03/06/24 04/30/24 Cristal Arroyo NP [address] [place] [address] PCP - General Nurse Practitioner 05/01/24 documented as of this encounter Additional Source Comments The information contained in this document represents components of the legal health record. It is not the complete legal health record.[facility]
--- OUTSIDE RECORDS SUMMARY | 2025-07-01 17:19 | XMS_ITS | Encounter Summary ---
Author Organization [facility] Address [address] [place] [address] Phone Care Team Providers Care Absorption Operator Name Role Phone Sulaiman Chan Primary Care Provid er Sulaiman Chan Primary Care Provid er Cristal Arroyo NP Primary Care Provid er Encounter Details Date Type Department Care Team (Late st Contact Info) Description 01/14/2022 Procedure Pass [facility] Admitting Dept Virtual Department [address] [place] [address] Social History Tobacco Use Types Packs/Day Years Used Date Smoking Tobacco: Never Smokeless Tobacco: Never Alcohol Use Standard Drinks/Week Comments No 0 (1 standard drink = 0.6 oz pur e alcohol) Currently sober Sex and Gender Information Value Date Recorded Sex Assigned at Male 10/25/2019 10:57 PM EST Legal Sex Male 9:57 PM EDT Gender Identity Male 10/25/2019 10:57 PM EST Sexual Orientation Don't know 05/01/2024 1: 07 PM EDT documented as of this encounter Plan of Treatment Upcoming Encounters Date Type Department Care Team (Late st Contact Info) Description 07/22/2025 1:00 PM EDT Nurse [facility] [address] [place] [address] 3rd Floor, [address] [place] [address] Emerson Sanchez MD [address] [place] [address] 08/26/2025 3:20 PM EST Office Visit [facility] [address] Floor, [address] [place] [address] Emerson Sanchez MD [address] [place] [phone] [email or web address] documented as of this encounter Visit Diagnoses Not on filedocumented in this encounter Additional Health Concerns Infection Onset Date Last Indicated Resolved Time CoV-Risk Comment:Neg covid 05/01/2024 05/01/2024 05/02/2024 11:55 AM EDT documented as of this encounter Care Teams Absorption Operator Relationship Specialty Start Date End Date Sulaiman Chan PA PCP - General 08/03/18 03/05/24 Sulaiman Chan PA [address] [place] [phone] PCP - General Physician Fixture Builder 03/06/24 04/30/24 Cristal Arroyo NP [address] [place] [address] PCP - General Nurse Practitioner 05/01/24 documented as of this encounter Additional Source Comments The information contained in this document represents components of the legal health record. It is not the complete legal health record.[facility]
--- OUTSIDE RECORDS SUMMARY | 2025-07-01 17:19 | XMS_ITS | Encounter Summary ---
Author Organization [facility] Address [address] [place] [address] Phone Care Team Providers Care Clock Repairer Name Role Phone Sulaiman Chan Primary Care Provid er Sulaiman Chan Primary Care Provid er Cristal Arroyo NP Primary Care Provid er Encounter Details Date Type Department Care Team (Late st Contact Info) Description 10/30/2018 Procedure Pass [facility] Admitting Dept Virtual Department [address] [place] [address] Social History Tobacco Use Types Packs/Day Years Used Date Smoking Tobacco: Never Smokeless Tobacco: Never Alcohol Use Standard Drinks/Week Comments No 0 (1 standard drink = 0.6 oz pur e alcohol) Sex and Gender Information Value Date Recorded Sex Assigned at Male 10/25/2019 10:57 PM EST Legal Sex Male 9:57 PM EDT Gender Identity Male 10/25/2019 10:57 PM EST Sexual Orientation Don't know 05/01/2024 1: 07 PM EDT documented as of this encounter Functional Status documented as of this encounter Plan of Treatment Upcoming Encounters Date Type Department Care Team (Late st Contact Info) Description 07/22/2025 1:00 PM EDT Nurse [facility] [address] Floor, [address] [place] [address] Emerson Sanchez MD [address] [place] [address] 08/26/2025 3:20 PM EST Office Visit [facility] [address] Floor, [address] [place] [address] Emerson Sanchez MD [address] [place] [phone] documented as of this encounter Visit Diagnoses Not on filedocumented in this encounter Additional Health Concerns Infection Onset Date Last Indicated Resolved Time CoV-Risk Comment:Neg covid 05/01/2024 05/01/2024 05/02/2024 11:55 AM EDT documented as of this encounter Care Teams Clock Repairer Relationship Specialty Start Date End Date Sulaiman Chan PA PCP - General 08/03/18 03/05/24 Sulaiman Chan PA [address] [place] [phone] PCP - General Physician Elevator Constructor Electric 03/06/24 04/30/24 Cristal Arroyo NP [address] [place] [phone] PCP - General Nurse Practitioner 05/01/24 documented as of this encounter Additional Source Comments The information contained in this document represents components of the legal health record. It is not the complete legal health record.[facility]
--- OUTSIDE RECORDS SUMMARY | 2025-07-01 17:19 | XMS_ITS | Encounter Summary ---
Author Organization [facility] Address [address] [place] [phone] Phone Care Team Providers Care Information Systems Project Manager Name Role Phone Cristal Arroyo NP Primary Care Provid er Encounter Details Date Type Department Care Team (Late st Contact Info) Description 05/03/2024 Procedure Pass [facility] [address] [place] [address] Social History Tobacco Use Types Packs/Day Years [...] Description 07/22/2025 1:00 PM EDT Nurse Only [facility] [address] [facility] 3rd Floor, [address] [place] [address] Emerson Sanchez MD [address] [place] [address] 08/26/2025 3:20 PM EST Office Visit [facility] [address] [facility] 3rd Floor, [address] [place] [address] Emerson Sanchez MD [address] [place] [address] documented as of this encounter Visit Diagnoses Not on filedocumented in this encounter Care Teams Information Systems Project Manager Relationship Specialty Start Date End Date Cristal Arroyo NP [address] [place] [phone] PCP - General Nurse Practitioner 05/01/24 documented as of this encounter Additional Source Comments The information contained in this document represents components of the legal health record. It is not the complete legal health record.[facility]
--- OUTSIDE RECORDS SUMMARY | 2025-07-01 17:19 | XMS_ITS | Encounter Summary ---
Author Organization [facility] Address [address] [place] [phone] Phone Care Team Providers Care Hospitalist Name Role Phone Cristal Arroyo NP Primary Care Provid er Encounter Details Date Type Department Care Team (Late st Contact Info) Description 02/25/2025 Procedure Pass [facility], Ct Scan - [address] [address] Social History Tobacco Use Types Packs/Day Years [...] Description 07/22/2025 1:00 PM EDT Nurse Only [facility] [address] [facility] 3rd Floor, [address] [place] [phone] Emerson Sanchez MD [address] [place] [phone] [email or web address] 08/26/2025 3:20 PM EST Office Visit [facility] [address] 3rd Floor, [address] [place] [address] Emerson Sanchez MD [address] [place] [address] documented as of this encounter Visit Diagnoses Not on filedocumented in this encounter Care Teams Hospitalist Relationship Specialty Start Date End Date Cristal Arroyo NP [address] [place] [address] PCP - General Nurse Practitioner 05/01/24 documented as of this encounter Additional Source Comments The information contained in this document represents components of the legal health record. It is not the complete legal health record.[facility]
--- OUTSIDE RECORDS SUMMARY | 2025-07-01 17:19 | XMS_ITS | Encounter Summary ---
Author Organization [facility] Address [address] [facility] [address] [place] [address] Phone Care Team Providers Care Launderette Attendant Name Role Phone Sulaiman Chan Primary Care Provid er Sulaiman Chan Primary Care Provid er Cristal Arroyo NP Primary Care Provid er Encounter Details Date Type Department Care Team (Late st Contact Info) Description 09/22/2022 Procedure Pass [facility] Endoscopy Admitting Dept Virtual Department [address] [place] [address] Social History Tobacco Use Types Packs/Day Years [...] Info) Description 07/22/2025 1:00 PM EDT Nurse [facility] [address] [place] [address] 3rd Floor, [address] [place] [address] Emerson Sanchez MD [address] [place] [address] 08/26/2025 3:20 PM EST Office Visit [facility] [address] 3rd Floor, [address] [place] [address] Emerson Sanchez MD [address] [place] [phone] [email or web address] documented as of this encounter Visit Diagnoses Not on filedocumented in this encounter Additional Health Concerns Infection Onset Date Last Indicated Resolved Time CoV-Risk Comment:Neg covid 05/01/2024 05/01/2024 05/02/2024 11:55 AM EDT documented as of this encounter Care Teams Launderette Attendant Relationship Specialty Start Date End Date Sulaiman Chan PA PCP - General 08/03/18 03/05/24 Sulaiman Chan PA [address] [place] [phone] PCP - General Physician Drop Forger Helper 03/06/24 04/30/24 Cristal Arroyo NP [address] [place] [address] PCP - General Nurse Practitioner 05/01/24 documented as of this encounter Additional Source Comments The information contained in this document represents components of the legal health record. It is not the complete legal health record.[facility]
--- OUTSIDE RECORDS SUMMARY | 2025-07-01 17:19 | XMS_ITS | Encounter Summary ---
Author Organization [facility] Address [address] [facility] [address] [place] [address] Phone Care Team Providers Care Flaking Roll Operator Name Role Phone Sulaiman Chan Primary Care Provid er Sulaiman Chan Primary Care Provid er Cristal Arroyo NP Primary Care Provid er Reason for Referral * MRI/CAT Scan - Closed Specialty Diagnoses / Procedures Referred By Chava tee Referred To Contact Radiology Diagnoses Left knee pain, unspecified chronicity Procedures MRI Knee (Left) Sulaiman Chan PA Phone: tel: fax: Referral ID Status Reason Start Date Expiration Date Visits Re quested Visits Authorized [id number] Closed 08/02/2018 01/31/2019 1 1 Encounter Details Date Type Department Care Team (Late st Contact Info) Description 08/03/2018 Ancillary Orders Virtual Department [address] [place] [address] Sulaiman Chan PA [address] [place] [phone] Left knee pain, unspecified chronicity Social History Tobacco Use Types Packs/Day Years [...] Description 07/22/2025 1:00 PM EDT Nurse Only [facility] [address] Floor, [address] [place] [address] Emerson Sanchez MD [address] [place] [phone] [email or web address] 08/26/2025 3:20 PM EST Office Visit [facility] [address] 3[address] Floor, [address] [place] [address] Emerson Sanchez MD [address] [place] [phone] [email or web address] documented as of this encounter Results * MRI KNEE WITHOUT CONTRAST (LEFT) (08/14/2018 7:21 PM EDT) Anatomical Region Laterality Modality Knee Left Magnetic Resonan ce 08/14/2018 9:54 PM EDT Impressions 08/14/2018 10:09 PM EDT 1. Motion artifact on multiple sequences limiting the study. 2. Complex degenerative tear of anterior horn and body of the lateral meniscus which are macerated, with lateral extrusion of the macerated body. Degenerative tearing extends to the margin with the posterior horn. 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 3. No evidence for medial meniscal tear. Mild to moderate degenerative changes in the medial and patellofemoral compartments. 4. Several ganglion cysts. Moderate joint effusion. 5. Anterior cruciate ligament mucoid degeneration. POS - [id number] Narrative 08/14/2018 10:09 PM EDT HISTORY: Played multiple sports, very active in sports and in the , chronic knee pain which is worsening. COMPARISON: None. TECHNIQUE: Exam performed on a 1.5 Delia high-field MRI scanner. Axial proton density with fat suppression, coronal proton density and proton density with fat suppression, sagittal T1, oblique sagittal proton density and proton density with fat suppression parallel to the plane of the ACL sequences were obtained. FINDINGS: Patient had difficulty remaining still for the examination. Motion artifact on most of the sequences, significantly limiting the study. There is a moderate joint effusion. No evidence for acute fracture. The posterior cruciate ligament is intact. The anterior cruciate ligament is significantly thickened with intrasubstance signal, with the appearance of mucoid degeneration. There are multiple intraosseous ganglion cysts in the proximal tibia. Posterior the PCL there is a 1.2 cm ganglion cyst. There is mild to moderate medial compartment joint space narrowing with thinning of the cartilage. There is no subchondral marrow edema in the medial compartment. No evidence for medial meniscal tear. Small marginal osteophytes in the medial compartment. There is advanced loss of joint space in the lateral compartment. There is complete loss of cartilage, bone on bone articulation. There is complex degenerative tearing of the body and anterior horn extending to the margin of the posterior horn which demonstrates irregularity of the radial margin. The anterior horn and body are completely macerated. A tiny peripheral remnant of an anterior horn remains. There is subchondral marrow edema within the posterior lateral femoral condyle and within the lateral tibial plateau. The distal quadriceps tendon and patellar tendons are intact. The MCL and lateral collateral ligament complex are intact. There is lateral extrusion of a macerated body of the lateral meniscus adjacent to the lateral collateral ligament. There is mild patellofemoral joint space narrowing. The posterior patellar cartilage is within normal limits, without focal defect. Mild patellofemoral osteophytes present. Procedure Note Melody Addison MD - 08/14/2018 HISTORY: Played multiple sports, very active in sports and in themilitary, chronic knee pain which is worsening. COMPARISON: None. TECHNIQUE: Exam performed on a 1.5 Delia high-field MRI scanner. Axialproton density with fat suppression, coronal proton density and protondensity with fat suppression, sagittal T1, oblique sagittal proton densityand proton density with fat suppression parallel to the plane of the ACLsequences were obtained. FINDINGS: Patient had difficulty remaining still for the examination. Motionartifact on most of the sequences, significantly limiting the study. There is a moderate joint effusion. No evidence for acute fracture. The posterior cruciate ligament isintact. The anterior cruciate ligament is significantly thickened withintrasubstance signal, with the appearance of mucoid degeneration. Thereare multiple intraosseous ganglion cysts in the proximal tibia. Posteriorthe PCL there is a 1.2 cm ganglion cyst. There is mild to moderate medial compartment joint space narrowing withthinning of the cartilage. There is no subchondral marrow edema in themedial compartment. No evidence for medial meniscal tear. Small marginalosteophytes in the medial compartment. There is advanced loss of joint space in the lateral compartment. There iscomplete loss of cartilage, bone on bone articulation. There is complexdegenerative tearing of the body and anterior horn extending to the marginof the posterior horn which demonstrates irregularity of the radialmargin. The anterior horn and body are completely macerated. A tinyperipheral remnant of an anterior horn remains. There is subchondralmarrow edema within the posterior lateral femoral condyle and within thelateral tibial plateau. The distal quadriceps tendon and patellar tendons are intact. The MCL andlateral collateral ligament complex are intact. There is lateral extrusionof a macerated body of the lateral meniscus adjacent to the lateralcollateral ligament. There is mild patellofemoral joint space narrowing.The posterior patellar cartilage is within normal limits, without focaldefect. Mild patellofemoral osteophytes present. IMPRESSION: 1. Motion artifact on multiple sequences limiting the study. 2. Complex degenerative tear of anterior horn and body of the lateralmeniscus which are macerated, with lateral extrusion of the maceratedbody. Degenerative tearing extends to the margin with the posterior horn.Advanced degenerative arthritic changes in the lateral compartment withcomplete loss of articular cartilage and subchondral marrow edema. 3. No evidence for medial meniscal tear. Mild to moderate degenerativechanges in the medial and patellofemoral compartments. 4. Several ganglion cysts. Moderate joint effusion. 5. Anterior cruciate ligament mucoid degeneration. POS - [id number] Sulaiman MARC G MR EXTREMITY Fin al Result documented in this encounter Visit Diagnoses Diagnosis Left knee pain, unspecified chronicity Left knee pain, unspecified chronicity documented in this encounter Additional Health Concerns Infection Onset Date Last Indicated Resolved Time CoV-Risk Comment:Neg covid 05/01/2024 05/01/2024 05/02/2024 11:55 AM EDT documented as of this encounter Care Teams Flaking Roll Operator Relationship Specialty Start Date End Date Sulaiman Chan PA PCP - General 08/03/18 03/05/24 Sulaiman Chan PA [address] [place] [phone] PCP - General Physician Peripheral Edp Equipment Operator 03/06/24 04/30/24 Cristal Arroyo NP [address] [place] [address] PCP - General Nurse Practitioner 05/01/24 documented as of this encounter Additional Source Comments The information contained in this document represents components of the legal health record. It is not the complete legal health record.[facility]
--- OUTSIDE RECORDS SUMMARY | 2025-07-01 17:19 | XMS_ITS | Clinical Summary ---
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 Active nadolol (CORGARD) 20 MG tablet Take 10 mg by mouth daily. 4 Active sildenafil (VIAGRA) 100 mg tablet Take 100 mg by mouth as needed. Active furosemide (LASIX) 20 MG tablet Take 20 mg by mouth. Only as needed edema has improved Active ARIPiprazole (ABILIFY) 2 MG tablet TAKE ONE TABLET BY MOUTH ONCE DAILY ADJUNCT FOR MOOD/DEPRESSION 2 Active atorvastatin (LIPITOR) 80 MG tablet Take 40 mg by mouth daily. 1 Active empagliflozin (JARDIANCE) 25 mg tablet TAKE ONE TABLET BY MOUTH ONCE DAILY FOR DIABETES DOSE INCREASE 2 Active lactulose bulk (CONSTULOSE) 10 gram/15 mL solution prn 1 Active insulin aspart U-100 (NOVOLOG) 100 unit/mL (3 mL) injection pen Inject 12 Units under the skin 3 (three) times a day with meals. 12 units breakfast, 9 units lunch, 13 units dinner if patient eats dinner 1 Active insulin glargine 100 unit/mL (3 mL) InPn injection pen Inject 32 Units under the skin daily. 1 Active acetaminophen (TYLENOL) 325 mg tablet Take 2 tablets (650 mg total) by mouth every 6 (six) hours as needed for pain (specific location in comments). 4 Active FLUoxetine (PROZAC) 20 MG capsule Take 40 mg by mouth daily. 4 Active cyclobenzaprine (FLEXERIL) 5 MG tablet Take 5 mg by mouth daily as needed for muscle spasms (lower back pain). 4 Active QUEtiapine (SEROQUEL) 25 MG tablet Take 50 mg by mouth nightly at bedtime. 4 Active semaglutide (OZEMPIC) 0.25 mg or 0.5 mg (2 mg/3 mL) subcutaneous injection pen Inject 0.25 mg under the skin every 7 days. 4 Active oxyCODONE 5 MG immediate release tablet Take 0.5-1 tablets (2.5-5 mg total) by mouth every 6 (six) hours as needed. Partial fill ok 4 Active Additional Information Patient not taking.Reported on 05/23/2025 amoxicillin (AMOXIL) 500 MG capsule Take 500 mg by mouth 3 (three) times a day. 4 Active apixaban (ELIQUIS) 5 mg tablet Take 5 mg by mouth 2 (two) times a day. 4 Active ascorbic acid, vitamin C, (VITAMIN C) 500 MG tablet Take 500 mg by mouth daily. TAKE WITH IRON NOT YET PICKED UP 4 Active ferrous sulfate 325 mg (65 mg [place] iron) tablet Take 325 mg by mouth daily with breakfast. TAKE WITH VITAMIN C NOT PICKED UP 4 Active buprenorphine (BUTRANS) 7.5 mcg/hour PTWK Place 1 patch onto the skin every 7 days. REMOVE OLD PATCH BEFORE APPLYING THE NEW ONE 4 Active Lactobacillus acidophilus 25 million cell Cap Take 1 capsule by mouth daily. 4 Active pantoprazole (PROTONIX) 40 MG tablet Take 40 mg by mouth 2 (two) times a day. 4 Active cholecalciferol (VITAMIN D3) 50,000 unit capsule Take 50,000 Units by mouth once a week. 4 Active armodafinil (NUVIGIL) 50 mg tablet Take 50 mg by mouth daily. Active doxycycline monohydrate (ADOXA) 100 MG tablet Take 100 mg by mouth 2 (two) times a day. Active cephalexin (KEFLEX) 500 MG capsule Take 1 capsule (500 mg total) by mouth 3 (three) times a day. Next dose at 3 pm today 3 capsule 5 Active traMADoL (ULTRAM) 50 mg tablet Take 1 tablet (50 mg total) by mouth every 8 (eight) hours as needed for pain (specific location in comments) (severe pain). Do not take at similar time as abilify, flexeril, seroquel, and other pain medications. 5 tablet 5 Active Additional Information Patient not taking.Reported on 05/23/2025 senna (SENOKOT) 8.6 mg tablet Take 8.6 mg by mouth. 3 Active Active Problems Problem Noted Date Diagnosed Date Other abnormal findings on c ytological and histological examination of urine 04/01/2025 History of bladder cancer 04/01/2025 Pyelonephritis 05/04/2024 Infected prosthetic knee joint, initial encounte r 05/04/2024 05/04/2024 Overview (05/04/2024): Left total knee replacement Bacteremia 05/02/2024 Assessment & Plan (05/04/2024 1:14 PM EDT): Patient appears to be presenting with a complicated UTI after recent procedural management of bladder cancer with cystoscopy and BCG treatment. Symptomatic with fever, body aches, malaise. Blood culture collected 05/01 positive for gram-positive cocci in pairs and chains. Likely urinary source. Initial management with IV ceftriaxone, which was then transition to vancomycin us when bacteria was confirmed to be Enterococcus. ID consult and recs appreciated. On 05/03, culture finalized with Enterococcus faecalis sensitive to ampicillin and patient was changed to ampicillin 2 g every 4 hours. Also on 05/03, patient developed right knee swelling and pain concerning for septic arthritis. [ ] Follow-up TTE -MRSA swab negative -Following blood cultures, repeat cultures were collected on 05/02. -ID following -With abnormal LFTs and thrombocytopenia, abdominal ultrasound was completed. Platelet count recovering with treatment of infection. -Renal bladder ultrasound completed, concerning for possible new bladder malignancy. Urology consulted, outpatient management. Patient and family aware. No interventions while bacteremic. -Influenza and COVID swabs negative, repeated and cleared from precautions Cystitis 05/01/2024 Assessment & Plan (05/04/2024 1:14 PM EDT): Complicated UTI as above. History of bladder cancer status post resection and on BCG therapy per Dr. Basurto, last BCG therapy approximately week ago. Currently on antifungal regimen for suspected fungal infection[facility] course was prescribed with last dose 05/01 (though patient did miss 05/01 dose). Patient reports intermittent gross hematuria since diagnosis of bladder cancer. Urinalysis did reveal positive leukocyte esterase, multiple WBCs, RBCs and bacteria suspicious for cystitis or possibly pyelonephritis. Continuing treatment as above. Urology consulted. -Beta D glucan was ordered, pending, no further fluconazole for now -Antibiotic treatment as above -Renal bladder ultrasound showed no hydronephrosis, notable for bladder mass. Aortic valve stenosis 05/01/2024 Overview (05/01/2024): Mar 17, 2024 Entered By: CHRISTINA CORTES Comment: moderate on ECHO 03/15/24 Obesity 05/01/2024 Cocaine abuse 05/01/2024 Overview (05/01/2024): Apr 30, 2018 Entered By: EMILY HILL Comment: In remission Alcohol dependence 05/01/2024 Overview (05/01/2024): Aug 05, 2020 Entered By: SHEILA MITCHELL Comment: Alcohol Use Disorder, Moderate Paroxysmal atrial fibrillation 05/01/2024 Assessment & Plan (05/01/2024 5:57 PM EDT): A-fib continue Eliquis Major depressive disorder 05/01/2024 Overview (05/01/2024): Apr 30, 2018 Entered By: EMILY HILL Comment: Closely followed by [facility] Assessment & Plan (05/02/2024 9:57 AM EDT): Major depression -Continue Prozac, Abilifcatarina, Seroquel -EKG 05/01 shows QTc 453 ms, prolonged. Bladder neoplasm of uncertain malignant potentia l 03/19/2024 Assessment & Plan (03/19/2024 3:58 PM EDT): Pt had gross hematuria that started 11/2023. He underwent cystoscopy 01/2024 showing 3 cm papillary bladder tumor. On 03/19 pt underwent CYSTOSCOPY AND RESECTION TUMOR TRANSURETHRAL BLADDER, URETHRAL DILATION with Dr. Basurto. - Post op pain medication PRN - Monitor bashir catheter output - Monitor for signs and symptoms of bleeding - Trend labs Per urology: - keep Bashir (plan for removal in 10-14 days). - Resume Eliquis tomorrow evening if no signifiant bleeding. 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 2 mg dose ordered Assessment & Plan (03/09/2019 10:39 PM EDT): - will still need to confirm his dosage as suboxone is 8 mg/2 mg but here he is getting 2 mg of buprenorphine. - Stable. Swelling of left lower extremity 03/06/2019 Left leg cellulitis 03/05/2019 Assessment & Plan (10/26/2019 2:03 PM EST): Patient had criteria for sepsis. Sources of infection considered. Chest x-ray negative urine analysis negative has no abdominal pain. He does have cellulitis in the left lower extremity Sepsis. due to his cellulitis. Sepsis has resolved. Cellulitis has improved. Patient received a dose of vancomycin in the ED but this was not continued. He does have ceftriaxone ordered Ultrasound negative for DVT Assessment & Plan (03/09/2019 10:36 PM EDT): - Clinically improved, reduced redness, swelling, and pain. - Blood cultures are still no growth -Dr. White recommended changing the antibiotic from Zosyn to cefazolin -At discharge antibiotic will be: cephalexin 500 mg PO 4 times a day to complete a 7 day course of therapy on 03/11 -Encouraged leg elevation goal to get the left leg above the heart Leg hematoma, right, initial encounter 9 Assessment & Plan (03/09/2019 10:35 PM EDT): -Hematoma was incised and drained in the ED -Ultrasound of the right lower extremity without DVT -Cont dressing changes as per wound care nurse RN. - redevelopment noted on 03/09. Spoke with Dr Alvarado, recommended using compression to assist with reabsorption of hematoma. Sepsis 03/04/2019 Diabetes mellitus 03/04/2019 Assessment & Plan (05/03/2024 10:52 PM EDT): Type 2 diabetes with hyperglycemia. Blood glucose was 303 on admission. Patient is on multiple medications including Jardiance, Ozempic and insulin was discovered [facility] At home patient takes NovoLog 09/23/13 with meals and 32 units Lantus nightly Plan: -Given admission to the hospital, oral and weekly injection antihyperglycemic medications held -Basal bolus insulin, adjusted as needed. Lantus nightly, insulin sliding scale with meals and nightly. Constant carbohydrate diet. Assessment & Plan (03/19/2024 3:57 PM EDT): At home pt takes: NovoLog 12 units breakfast, 8 units lunch, 12 units dinner Glargine 40 units nightly Jardiance 25 mg daily - Pt's ex- states he has had issues with hypoglycemia lately due to poor PO intake and his insulin was recently decreased. Plan to check hemoglobin A1c - Moderate dose sliding scale insulin while inpatient with 10 units Lantus nightly as pt has been NPO all day - Resume home medications on discharge Assessment & Plan (10/26/2019 1:59 PM EST): Usual dose home lantus 18u BID ordered, as well as his prandial lispro 10u Assessment & Plan (03/09/2019 10:37 PM EDT): - Controlled with 1 reading in low 200s. - cont Lantus to 26u at bedtime -cont prandial insulin 12 units -Continue insulin sliding scale coverage. Liver cirrhosis 03/04/2019 Assessment & Plan (05/03/2024 10:52 PM EDT): Cirrhosis suspected NAFLD -Follows with gastroenterology, last endoscopy per patient a year ago and normal -Bedside ultrasound performed per ED negative for ascites -Continue nadolol/omeprazole -Limited abdominal ultrasound showed splenomegaly, bilateral kidneys with normal appearance. Assessment & Plan (03/19/2024 4:13 PM EDT): PMH includes NAFLD, pt not jaundiced, no evidence of edema or large volume ascites on exam - On Nadolol, Lactulose PRN, Furosemide PRN at home - Check LFT Assessment & Plan (10/26/2019 2:00 PM EST): -Stable. -Continue nadolol (esophageal varices), Lasix. (Not on Spironolactone chronically due to breast pain) Assessment & Plan (03/09/2019 10:33 PM EDT): - stable, cont nadolol and furosemide - Cont Lactulose - not on Spironolactone chronically (due to breast pain) Knee pain 01/17/2019 Assessment & Plan (05/04/2024 1:12 PM EDT): Patient had surgery 1 year ago for his left knee. Complaining of left knee pain which began during this hospitalization. Given his bacteremia, concerning for joint infection with hardware in place. Mildly warm to touch, mildly tender to palpation. -Voltaren gel ordered for mild pain, twice daily -Oxycodone 2.5 to 5 mg every 6 hours as needed for moderate to severe pain. -X-ray of the left knee was requested which did show moderate joint effusion. -Case was discussed with Dr. Miller on 05/03.Dr. Miller tapped the knee on 05/04, initial results are concerning for possible knee infection, apixaban was held, Lovenox started. Heart murmur 11/08/2017 Assessment & Plan (12/06/2017 3:31 PM EST): As above is not a pathologic murmur. Benign essential hypertension 11/08/2017 Assessment & Plan (10/26/2019 1:58 PM EST): Continue amlodipine lasix Assessment & Plan (03/09/2019 10:39 PM EDT): - Well controlled. - cont amlodipine, furosemide Assessment & Plan (03/06/2018 1:37 PM EDT): Borderline control today but he tells me he is actually usually a bit higher. After he checks his medication my tendency would be to increase his lisinopril to 40 mg if it has not already there. We may need to add a small dose of a diuretic such as HCTZ. Assessment & Plan (12/06/2017 3:29 PM EST): Blood pressures borderline today with a systolic of about 140. It is at least conceivable that 10 mg of amlodipine may be partially [place] completely responsible for his edema. His lisinopril which has increased so I've asked him to decrease his amlodipine to 5 mg a day and to do this for several months. He will monitor his blood pressure and if it's elevated I would increase his lisinopril to 40 mg. I will have a full set of labs drawn at his next visit in about 3 months. This will include lipids. Mixed hyperlipidemia 11/08/2017 Assessment & Plan (03/06/2018 1:37 PM EDT): Remains on high-dose pravastatin and labs are pending Assessment & Plan (12/06/2017 3:29 PM EST): Tolerating his increased and pravastatin. Will have lipids drawn in 2-3 months. Localized edema 11/08/2017 Assessment & Plan (03/06/2018 1:38 PM EDT): I scheduled him for a venous ultrasound. Assessment & Plan (12/06/2017 3:29 PM EST): If changing his calcium ran does not result in improvement I will ask him to undergo a full venous study to see if an ablation may help. Bilateral carotid bruits 11/08/2017 Encounters Date Type Department Care Team Description 06/09/[address] [facility], [address] [place] [address] Emerson Sanchez MD 06/02/2025 9:14 AM EDT - 06/02/2025 11:59 PM EDT Hospital Encounter Echo Lab [address] [address] Emerson Sanchez MD Discharge Disposition: Home or Self Care 05/23/2025 1:00 PM EDT Office Visit [address] [facility], [address] [place] [address] Emerson Sanchez MD Heart murmur (Primary Dx); Abnormal electrocardiogram (ECG) (EKG) 05/23/2025 Procedure Pass Echo Lab [address] [place] [address] 05/23/2025 Orders Only [address] [facility], [address] [place] [address] Emerson Sanchez MD Sick sinus syndrome (Primary Dx) 04/01/2025 7:34 AM EDT Anesthesia Event OR Admitting Dept - Virtual Department [address] [place] [phone] Amaya Lopez MD 04/01/2025 7:30 AM EDT - 04/01/2025 8:47 AM EDT Surgery OR Admitting Dept - Virtual Department [address] [place] [id number] Sulaiman Basurto MD CYSTOSCOPY, BILAT RETROGRADE, FULGURATION BIOPSY BLADDER-POSSIBLE PROSTATIC URETHRA, SELECTIVE WASHINGS 04/01/2025 6:41 AM EDT - 04/01/2025 11:58 AM EDT Hospital Encounter OR Admitting Dept - Virtual Department [address] [place] [id number] Sulaiman Basurto MD Discharge Disposition: Home or Self Care 04/01/2025 Procedure Pass OR Admitting Dept - Virtual Department [address] [place] [address] 03/31/2025 8:00 AM EDT Pre-Admission Testing Pre Procedure Evaluation [address] [place] [address] Sulaiman Basurto MD from Last 3 Months Family History Medical History Relation Comments Congenital heart disease Mother Diabetes Mother Relation Status Comments Mother Social History Tobacco Use Types Packs/Day Years [...] Don't know 05/01/2024 1: 07 PM EDT Last Filed Vital Signs Vital Sign Reading Time Taken Comments Blood Pressure 112/68 06/02/2025 9:14 AM EDT Pulse 59 05/23/2025 12:41 PM EDT Temperature 36 C (96.8 F) 04/01/2025 10:43 AM EDT Respiratory Rate 67 04/01/2025 10:3 0 AM EDT Oxygen Saturation 98% 05/23/2025 12: 41 PM EDT Inhaled Oxygen Concentration - - Weight 96.6 kg (212 lb 15.4 oz) 06/02/2025 9:14 AM EDT Height 170.2 cm (5' 7.01 ) 06/02/2025 9:14 AM ED T Body Mass Index 33.35 06/02/2025 9:14 AM EDT Plan of Treatment Upcoming Encounters Date Type Department Care Team (Late st Contact Info) Description 07/22/2025 1:00 PM EDT Nurse Only [facility] [address] [place] [address] [address] Floor, [address] [place] [address] Emerson Sanchez MD [address] [place] [id number] 08/26/2025 3:20 PM EST Office Visit [facility] [address] [place] [address] [address] Floor, [address] [place] [address] Emerson Sanchez MD [address] [place] [phone] Health Maintenance Due Date Last Done Comments DEPRESSION SCREENING 1965 HEPATITIS C SCREENING 1971 PNEUMOCOCCAL VACCINES (50+ years) (1 of 2 - PCV) 1972 COLOGUARD 1998 FIT TEST 1998 FOBT 1998 SIGMOIDOSCOPY 1998 VIRTUAL COLONOSCOPY 1998 RSV VACCINE (1 - Risk 60-74 years 1-dose series) 2013 URINE MICROALBUMIN/CREATININE RATIO 03/04/2019 HEMOGLOBIN A1C 09/18/2024 03/19/2024 DIABETIC EYE EXAM 04/01/2025 04/01/2024 CREATININE LEVEL 05/04/2025 05/04/2024, , 05/02/2024, Additional history exists INFLUENZA VACCINE (#1) 2025 COVID-19 VACCINE ( season) 2025 BLOOD PRESSURE 11/23/2025 05/23/2025 Adult Td,Tdap Booster 12/24/2031 12/23/2021, 012 COLONOSCOPY 09/22/2032 09/22/2022 COLORECTAL CANCER SCREENING 09/22/2032 HEPATITIS A VACCINES Completed 09/27/2011, 04/26/2011, 03/28/2011 ZOSTER VACCINES Completed 06/07/2018, 12/28/2017 SMOKING STATUS SCREENING (Once After 26 Yrs) Completed 05/23/2025 HIB VACCINES Aged Out No longer eligi ble based on patient's age to complete this topic MENINGOCOCCAL VACCINES (ACWY) Aged Out No longer eligible based on patient's age to complete this topic MENINGOCOCCAL VACCINES (B) Aged Out N o longer eligible based on patient's age to complete this topic Medical Devices Implanted Type Area Filer And Sander Device Identifier Shelf Expiration Date Model / Serial / Lot Prosthetic Joint Prosthetic Joint Left: Knee Procedures Procedure Name Priority Date/Time Associated Diagnosis Comments TTE COMPREHENSIVE Routine 06/02/2025 10: 05 AM EDT Abnormal electrocardiogram (ECG) (EKG) NON-BUILDING CARPENTER CYTOLOGY, URINE/URINARY TRACT STAT 04/01/2025 9:32 AM EDT NON-BUILDING CARPENTER CYTOLOGY, URINE/URINARY TRACT Routine 04/01/2025 9:32 AM EDT NON-BUILDING CARPENTER CYTOLOGY, URINE/URINARY TRACT STAT 04/01/2025 9:32 AM EDT POCT GLUCOSE Routine 04/01/2025 8:43 AM EDT FL FLUOROSCOPY Routine 04/01/2025 8:37 AM EDT CHG CYTOPATH, INSITU HYBRID URINE SPEC 3-5 PROBES EACH,MANUAL Routine 04/01/2025 8:12 AM EDT CHG CYTOPATH, INSITU HYBRID URINE SPEC 3-5 PROBES EACH,MANUAL Routine 04/01/2025 8:12 AM EDT HC CYTP INSITU HYBRID URINE SPEC 3-5 PROBES EA MNL Routine 04/01/2025 8:12 AM EDT AIRWAY PLACEMENT Routine 04/01/2025 7:40 AM EDT IL CYSTOURETHROSCOPY,BI OPSY 04/01/2025 7:34 AM EDT Bladder neoplasm of uncertain malignant potential Gross hematuria Other abnormal findings on cytological and histological examination of urine POCT GLUCOSE Routine 04/01/2025 7:02 AM EDT NON-BUILDING CARPENTER CYTOLOGY, NON CSF, NON URINE Routine 04/01/2025 12:00 AM EDT ANATOMIC PATHOLOGY Routine 04/01/2025 12 :00 AM EDT BASIC METABOLIC PANEL Routine 05/04/2024 5:44 AM EDT HEMOGLOBIN A1C STAT 03/19/2024 4:20 PM EDT ENDOSCOPY, COLON 09/22/2022 11:4 7 AM EST from Last 3 Months or Most Recently Relevant to Health Maintenance Results * (ABNORMAL) TTE COMPREHENSIVE (06/02/2025 10:05 AM EDT) Body Surface Area 2.08 m2 Height 170 cm Weight 97 kg Interventricular Septum Thickness 8 6 - 11 mm Left Ventricle Internal Diameter End Diastole 56 42 - 58 mm Left Ventricle Internal Diameter End Systole 38 <40 mm Left Ventricular Outflow Tract Diameter 21.0 mm Left Ventricular Posterior Wall Thickness 10 6 - 11 mm Left Ventricle Ea Lateral Wave Speed 6.7(A) cm/s Left Ventricle Ea Septal Wave Speed 4.7(A) cm/s Ejection Fraction 69 50 - 75 Percent Left Atrium Dimension Anterior-Posterior 39 15 - 40 mm Aortic Valve Mean Gradient 23 mmHg Aortic Valve Time Velocity Integral 777.0 mm Aortic Valve Peak Velocity 3.1 m/s Aortic Valve Peak Gradient 38 mmHg Aortic Arch Diameter 23 mm Aortic Sinus Diameter 30 <40 mm Ascending Aorta Diameter 32 <36 mm Mitral Valve Deceleration Time 268 ms Left Ventricle A Wave Speed 106.0 cm/s Left Ventricle E Wave Speed 114.0 cm/s Mitral Valve Mean Gradient 3 mmHg Mitral Valve Peak Gradient 5 mmHg Mitral Valve Area Continuity Equation 3.30 cm2 Pulmonary Valve Peak Velocity 1.4 m/s Pulmonary Valve Peak Gradient 7 mmHg Right Ventricle Basal Diameter 45 25 - 41 mm Raw LV EF% 54 % MV E/E' Tissue Velocity Lateral 17.01 Relative Wall Thickness 0.36 0.22 - 0.42 Left Ventricle indexed to BSA 92.1 g/m2 MV E/A ratio 1.1 MV E/e' septal 24.26 Left Ventricle E/e' Average 20.6(A) Aortic Valve Prosthetic Peak Gradient 38 mmHg Aortic Valve Prosthetic Mean Gradient 23 mmHg Aortic Valve Sinus Index by BSA 14 mm/m2 Aorta Sinus Index by Height 1.76 cm/m Aorta Sinus CSA index by Height 4.16 cm2/m Ascending Aorta Index 15 mm/m2 Asc Aorta CSA Index by Height 4.73 cm2/m Mitral Valve Prosthetic Peak Gradient 5 mmHg Mitral Valve Prosthetic Mean Gradient 3 mmHg Pulmonic Valve Prosthetic Peak Gradient 7 mmHg Ascending Aorta Index 15 mm Aortic Sinus Index 14 mm Ascending Aorta Diameter 15 mm Aortic Valve Sinus Index 1 14 20 - 32 mm AO ASC DIAM BSA INDEX 15.38 Echo E/Ea 24.26 Left Atrial Volume Index 25 16 - 34 mL/m2 Right Ventricle TAPSE 24 >=17 mm Right Ventricle Pulse Doppler S Wave 13.0 >=9.5 cm/s Left Atrial Volume 53 mL Left Atrial Volume Index by Height 31 mL/m Right Atrium Area 14 cm2 Right Atrium Area index 7 cm2/m2 Anatomical Region Laterality Modality Heart Ultrasound Narrative 06/02/2025 12:15 PM EDT Images from the original result were not included. 1. The indication is abnormal EKG. The ejection fraction left ventricle is completely normal 60 to 65%. Diastolic function is normal left ventricular thickness is normal and regional wall motion is normal. 2. Normal RV function with mild dilatation to the RV cavity. 3 there is a trileaflet aortic valve with mild to moderate aortic stenosis. The mean gradient across the valve is 23 mmHg the peak is 38 mmHg the peak velocity is 3.1 m/s. The ascending aortic root is normal size. 4. Trace mitral and trace tricuspid sufficiency, the PA pressure cannot be calculated. 5. Normal pericardium and when compared to the prior echo done May 03, 2024, no significant change. Left Ventricle The left ventricle is mildly dilated. There is normal wall thickness. There is normal left ventricular systolic function. The LV ejection fraction is 60-65% (visually estimated). LV diastolic function appears within normal limits for age. The e' septal wave velocity is 4.7 cm/s. The e' lateral wave velocity is 6.7 cm/s. The average E/e' ratio is 20.6. Right Ventricle The right ventricle is mildly dilated. There is normal right ventricular systolic function. TAPSE is 24 mm (normal: >= 17 mm). RV S' wave is 13.0 cm/s (normal: >= 9.5 cm/s). Left Atrium The left atrium is normal in size. Right Atrium The right atrium is normal in size. The right atrial area is 14 cm2. The IVC is suboptimally visualized. Mitral Valve There is mild mitral valve thickening. There is mitral annular calcification. There is no mitral stenosis. There is trace mitral regurgitation. Tricuspid Valve The tricuspid valve appears normal. There is no tricuspid stenosis. There is trace tricuspid regurgitation. RV systolic pressure could not be estimated due to insufficient TR Doppler envelope. Aortic Valve The aortic valve is tricuspid. There is leaflet thickening. There is leaflet calcification. There is mild aortic stenosis. The aortic valve peak velocity is 3.1 m/s. The peak and mean aortic valve gradients are 38 mmHg and 23 mmHg respectively. There is no aortic regurgitation. The aortic sinuses are normal in size. The ascending aorta is normal in size. Pulmonic Valve The pulmonic valve appears normal. There is no pulmonic stenosis. There is no pulmonic regurgitation. Pericardium The pericardium appears normal. There is no pericardial effusion. General Findings The study was technically difficult (4). Technique(s) used in the evaluation: Multiplane, Color flow Doppler, Spectral Doppler and Epiaortic scan. 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 There is evidence suggestive of a patent foramen ovale (PFO). Emerson Sanchez MD CV ECHO ORDERABLES Final Resu lt * Urine cytology order (04/01/2025 9:32 AM EDT) Only the most recent of3 resultswithin the time period is included. Cytology Order Status Specimen received in Cytology Lab for processing. [facility] Urine 04/01/2025 9:32 AM EDT 04/01/2025 9:38 AM EDT Sulaiman Basurto MD URINE ORDERABLES Final Result [facility] [address] [place] [address] * (ABNORMAL) POCT Glucose (04/01/2025 8:43 AM EDT) Only the most recent of2 resultswithin the time period is included. Pathologist [facility] Glucose, POCT 154(H) 70 - 100 mg/dL [facility] 04/01/2025 8:43 AM EDT 04/01/2025 9:51 AM EDT Sulaiman Basurto MD POINT OF CARE TEST ORDERABLES Final Result Performing Organization Address City/[facility]/ZIP Co de Phone Number [address] [address] * [place] Fluoroscopy (04/01/2025 8:37 AM EDT) Narrative SYSTEMGENERATED, DOCUMENTATION - 04/01/2025 8:38 AM EDT Fluoroscopy was provided during this procedure. Sulaiman Basurto MD IMG [place] MISC Final Result * Urovysion bladder cancer evaluation (04/01/2025 8:12 AM EDT) Only the most recent of3 resultswithin the time period is included. UroVysion (R) for Bladder Cancer SEE NOTE 5 01:33 PM [facility] DPT OF LAB MED AND PAT+ Comment: (NOTE) Test Result Flag Unit RefValue UroVysion (R) for Bladder Cancer Result Summary Negative Result No evidence of urothelial carcinoma. Interpretation SEE NOTE This test result does not rule out the possibility that the patient may have a low-grade (i.e. grade 1 or 2) non-invasive papillary urothelial carcinoma. Some patients with low grade non-invasive papillary urothelial carcinoma do not have abnormalities with this FISH test. ADDITIONAL INFORMATION Fluorescence in situ hybridization (FISH) with centromere probes for chromosomes 3 (D3Z1), 7(D7Z1), 17(D17Z1), and a locus specific probe for 9p21 ([employer], [place]). This test has been modified from the social media project manager's instructions. Its performance characteristics were determined by [facility] in a manner consistent with CLIA requirements. This test has not been cleared or approved by the U.S. Food and Drug Administration. Reason for Referral Evaluate for urothelial carcinoma. Specimen Varies Source left kidney Released By SEE NOTE Kimberlee Joyce M.D. Urine (Urine) 04/01/2025 8:1 2 AM EDT 04/01/2025 8:46 AM EDT us Sulaiman Basurto MD URINE ORDERABLES Final Result [facility] DPT OF LAB MED AND [facility]+ [address] [place] [address] * ANES ETT DOUBLE LUMEN - AIRWAY LDA (04/01/2025 7:40 AM EDT) Narrative Kaushik Gant CRNA - 04/01/2025 7:40 AM EDT Kaushik Gant CRNA 04/01/2025 8:52 AM Airway Placement Procedure Note: Procedure performed by: fellow/resident/ASSISTANT TEACHER PRIMARY Anesthesiologist: Amaya Lopez MD Fellow/Resident/ASSISTANT TEACHER PRIMARY: Kaushik Gant CRNA Airway procedure initiated at:04/01/2025 7:40 AM and ended at. Personal Protective Equipment: Mask: surgical mask Gloves: gloves Mask Ventilation: Quality: not attempted Airway Placement: Technique: LMA LMA Insertion: LMA size: 4 LMA type: flexible LMA placement attempts: 1. Outcomes: Evidence of dental injury? no Complications observed? no us Amaya Lopez MD [place] ANESTHESIA Final Resu lt * Non-Mba Intern Cytology (04/01/2025 12:00 AM EDT) 04/01/2025 04/02/2025 11: 27 AM EDT Narrative SEE NARRATIVE - 04/03/2025 12:25 [place] [address] Records Management Coordinator: Yosvany Arora MD Non Mba Intern Cytology Report FINAL DIAGNOSIS A. BLADDER WASH: SPECIMEN ADEQUACY: Satisfactory for evaluation. INTERPRETATION: NEGATIVE FOR HIGH GRADE UROTHELIAL CARCINOMA B. RIGHT KIDNEY AND URETER WASH: SPECIMEN ADEQUACY: Satisfactory for evaluation. INTERPRETATION: NEGATIVE FOR HIGH GRADE UROTHELIAL CARCINOMA Reactive urothelial cells present. C. LEFT KIDNEY AND URETER WASH: SPECIMEN ADEQUACY: Satisfactory for evaluation. INTERPRETATION: NEGATIVE FOR HIGH GRADE UROTHELIAL CARCINOMA. Electronically Signed Out By: MD Leda Amezcua CT([facility]) By his/her signature above, the pathologist listed as making the Final Diagnosis certifies that he/she has personally reviewed this case and confirmed or corrected the diagnosis. CLINICAL HISTORY Patient presents with bladder tumor and hematuria. SPECIMEN SOURCE A: BLADDER WASH B: RIGHT KIDNEY AND URETER WASH C: LEFT KIDNEY AND URETER WASH GROSS DESCRIPTION A. BLADDER WASH: Received fresh is 70 mL of clear yellow fluid labeled with patient's name and date of . One (1) ThinPrep slide is prepared. An aliquot of 30 mls fresh urine is combined with 30 mls of CytoLyt preservative, labeled with the patient's name and date of and delivered to the reference department for UroVysion (FISH) testing. B. RIGHT KIDNEY AND URETER WASH: Received fresh is 30 mL of clear fluid labeled with patient's name and date of . One (1) ThinPrep slide is prepared. An aliquot of 15 mls fresh urine is combined with 15 mls of CytoLyt preservative, labeled with the patient's name and date of and delivered to the reference department for UroVysion (FISH) testing. C. LEFT KIDNEY AND URETER WASH: Received fresh is 20 mL of clear fluid labeled with patient's name and date of . One (1) ThinPrep slide is prepared. An aliquot of 10 mls fresh urine is combined with 10 mls of CytoLyt preservative, labeled with the patient's name and date of and delivered to the reference department for UroVysion (FISH) testing. Patient Name: DOLORES LOCKETT : 1955 (Age: 69) Sex: M Institution: [facility] Date of Collection: 04/01/2025 Date of Reported: 04/03/2025 12:25 Results to: MD Cristal Garvey MD us Sulaiman Basurto MD CYTOLOGY ORDERABLES Final Resu lt SEE NARRATIVE * Anatomic Pathology (04/01/2025 12:00 AM EDT) 04/01/2025 04/01/2025 10: 37 AM EDT Narrative SEE NARRATIVE - 04/02/2025 2:42 PM EDT [address] [address] Records Management Coordinator: Yosvany Arora MD Surgical Pathology Report FINAL PATHOLOGIC DIAGNOSIS: A. BLADDER, POSTERIOR, BIOPSY: Benign urothelium and focal muscularis propria. B. BLADDER, LEFT LATERAL, BIOPSY: Denuded benign urothelium. C. BLADDER, RIGHT LATERAL, BIOPSY: Inflamed urothelium with reactive changes. D. BLADDER, ANTERIOR, BIOPSY: Benign urothelium. E. PROSTATIC URETHRA, BIOPSY: Benign urothelium. Electronically Signed Out By Yosvany Arora MD By his/her signature above, the pathologist listed as making the Final Diagnosis certifies that he/she has personally reviewed this case and confirmed or corrected the diagnosis. CLINICAL HISTORY Bladder tumor in the past, hematuria, abnormal cytology. SPECIMENS SUBMITTED: A: BLADDER, POSTERIOR, BIOPSY B: BLADDER, LEFT LATERAL, BIOPSY C: BLADDER, RIGHT LATERAL, BIOPSY D: BLADDER, ANTERIOR, BIOPSY E: PROSTATIC URETHRA, BIOPSY GROSS DESCRIPTION A. BLADDER, POSTERIOR, BIOPSY: Formalin: 2 mosher-white fragments 0.3 cm each, entirely submitted A1. B. BLADDER, LEFT LATERAL, BIOPSY: Formalin: 1 mosher-white fragment 0.1 cm, entirely submitted B1. C. BLADDER, RIGHT LATERAL, BIOPSY: Formalin: 1 white-red fragment 0.3 cm, entirely submitted C1. D. BLADDER, ANTERIOR, BIOPSY: Formalin: 1 fragment 0.2 cm, entirely submitted D1. E. PROSTATIC URETHRA, BIOPSY: Formalin: 2 fragments 0.1 and 0.2 cm, entirely submitted E1. DN 04/01/2025 Grossing Staff: ANYA Patient Name: DOLORES LOCKETT : 1955 (Age: 69) Sex: M Institution: [facility] Location: [facility] Date of Operation: 04/01/2025 Date of Reported: 04/02/2025 14:42 Results To: MD Cristal Garvey MD us Sulaiman Basurto MD PATHOLOGY ORDERABLES Final Res ult SEE NARRATIVE * (ABNORMAL) Basic metabolic panel (05/04/2024 5:44 AM EDT) SODIUM 138 133 - 146 mmol/L [facility] CHLORIDE 108 96 - 108 mmol/L [facility] POTASSIUM 4.0 3.3 - 5.1 mmol/L [facility] CO2 20(L) 21 - 35 mmol/L [facility] BUN 23(H) 6 - 19 mg/dL [facility] CREATININE 1.00 0.5 - 1.5 mg/dL [facility] GLUCOSE 105(H) 70 - 99 mg/dL [facility] CALCIUM 8.4 8.4 - 10.3 mg/dL [facility] EGFR 81 >59 mL/min/1.7 3m2 [facility] Comment:Estimated glomerular filtration rate calculated using the CKD-EPI refit equation. ANION GAP 14 10 - 20 mmol/L [facility] Blood 05/04/2024 5:44 AM EDT 05/04/2024 5:57 AM EDT us Peri Carlin PA-C LAB BLOOD ORDERABLES Final Result [address] [address] * (ABNORMAL) Hemoglobin A1c (03/19/2024 4:20 PM EDT) HEMOGLOBIN A1C 6.2(H) 4.3 - 5.8 % [facility] Blood 03/19/2024 4:20 PM EDT 03/19/2024 4:23 PM EDT us Xiomara Lozano NP LAB BLOOD ORDERABLES Fin al Result Performing Organization Address City/[facility]/ZIP Co de Phone Number [address] [address] * ENDOSCOPY, COLON (09/22/2022 11:47 AM EST) Narrative Transcriptions Jay Griffin MD - 09/22/2022 11:47 AM EST Patient Name: Dolores Parent Attending MD:: JAY GRIFFIN MD Procedure Date: 09/22/2022 11:47 AM Date of : 1955 Age: 66 Admit Type: Outpatient Gender: Male Room: [facility] 04 Referring MD: Sulaiman Chan MD Exam Type: Colonoscopy Indications: High risk colon cancer surveillance: Personalhistory of colonic polyps, Last colonoscopy: 2016 Medications: Monitored Anesthesia Care Procedure: Informed consent was obtained from the patientafter discussion of the indications, limitations, alternatives, benefits, and risks of the procedure. Risks specifically discussed include but are not limited to medication reactions, missed lesions, bleeding, perforation, or the need for emergent surgery. Throughout the procedure, the patient's blood pressure, pulse, end-tidal CO2, and oxygensaturations were monitored continuously. The Colonoscope was introduced through the anus and advanced to the cecum, identified by theappendiceal orifice. The colonoscopy was performed without difficulty. The patient tolerated the procedurewell. The quality of the bowel preparation was adequateto identify polyps. Anatomical landmarks were photographed. Complications: No immediate complications. Estimated blood loss:None. Findings: The perianal and digital rectal examinations were normal. A 3 mm polyp was found in the transverse colon. The polyp was sessile. The polyp was removed with acold biopsy forceps. Resection and retrieval werecomplete. 2 plus internal hemorrhoids were noted. The rectum, recto-sigmoid colon, sigmoid colon, descending colon, splenic flexure, hepatic flexure, ascending colon, cecum, appendiceal orifice, rectum (on retroflexion) and ascending colon (on retroflexion) appeared normal. Impression: - One 3 mm polyp in the transverse colon, removedwith a cold biopsy forceps. Resected and retrieved. - The rectum, sigmoid colon, descending colon,splenic flexure, hepatic flexure, ascending colon, cecum, rectum (on retroflexion), ascending colon (on retroflexion), recto-sigmoid colon and appendiceal orifice are normal. Recommendation: - Discharge patient to home. - Resume previous diet. - Continue present medications. - Await pathology results. - Repeat colonoscopy in 7 years for surveillance. JAY GRIFFIN MD 09/22/2022 12:08:55 PM This report has been signed electronically. Number of Addenda: 0 Note Initiated On: 09/22/2022 11:47 AM Procedure Code(s): --- Professional --- 14399, Colonoscopy, flexible; with biopsy, single or multiple --- Technical --- 53385, Colonoscopy, flexible; with biopsy, single or multiple Diagnosis Code(s): --- Professional --- Z86.010, Personal history of colonic polyps K63.5, Polyp of colon --- Technical --- Z86.010, Personal history of colonic polyps K63.5, Polyp of colon CPT copyright 2020 [employer]. All rights reserved. The codes documented in this report are preliminary and upon straw hat presser reviewmay be revised to meet current compliance requirements. Procedure Date: 09/22/2022 11:47:[address] [place] [address] Sulaiman MARC GI PROCEDURE ORDERAB LES Edited Result - Final from Last 3 Months or Most Recently Relevant to Health Maintenance Insurance MEDICARE PART A & B [facility] MEDICARE PART A & B Member Subscriber Plan / Payer (Ef fective 2017-Present) Name:Dolores Lockett Member ID:[id number] Relation to Subscriber:Self Name:Dolores Lockett Subscriber ID:[id number] Payer ID:[id number] Group ID:Not on file Type:Medicare Address: [address] [place] [id number] [facility] MEDICARE PART A & B [facility] MEDICARE PART A & B [facility] MEDICARE PART A & B [facility] MEDICARE PART A & B [facility] MEDICARE PART A & B [facility] MEDICARE PART A & B [facility] MEDICARE PART A & B [facility] Advance Directives For more information, please contact: [phone] (9AM - 5PM [facility], Monday-Monday) Documents on File Type Date Recorded Patient Print Producer Expl anation Healthcare Proxy 05/08/2024 1:40 PM Healthcare Proxy 05/02/2024 3:11 PM Health care Proxy * Full Code (Latest Code Status on File) Date Activated Date Inactivated Comments 05/01/2024 7:37 PM Question Answer Comments Code Status Confirmed With: Patient Code Status Communicated To: Inpatient Attending * Full Code Date Activated Date Inactivated Comments 03/19/2024 3:48 PM 05/01/2024 7:37 PM Question Answer Comments Code Status Confirmed With: Patient * Full Code Date Activated Date Inactivated Comments 03/19/2024 3:48 PM 03/19/2024 3:48 PM Question Answer Comments Code Status Confirmed With: Patient * Full Code (Confirmed) Date Activated Date Inactivated Comments 10/26/2019 3:35 AM 10/27/2019 8:37 PM Question Answer Comments Code Status Confirmed With: Patient * Full Code (Confirmed) Date Activated Date Inactivated Comments 03/04/2019 10:02 PM 03/10/2019 4:59 PM Question Answer Comments Code Status Confirmed With: Patient Care Teams Box Sealing Machine Operator Relationship Specialty Start Date End Date Cristal Arroyo NP [address] [place] [phone] PCP - General Nurse Practitioner 05/01/24 Additional Source Comments The information contained in this document represents components of the legal health record. It is not the complete legal health record.[facility]
--- OUTSIDE RECORDS SUMMARY | 2025-07-01 17:19 | XMS_ITS | Encounter Summary ---
Author Organization [facility] Address [address] [place] [phone] Phone Care Team Providers Care Assistant Office Manager Name Role Phone Cristal Arroyo NP Primary Care Provid er Encounter Details Date Type Department Care Team (Late st Contact Info) Description 04/01/2025 Procedure Pass OR Admitting Dept - Virtual Department [address] [place], [place] [id number] Social History Tobacco Use Types Packs/Day Years [...] Description 07/22/2025 1:00 PM EDT Nurse Only [facility] [address], [address] [place] [address] Emerson Sanchez MD [address] [place] [address] 08/26/2025 3:20 PM EST Office Visit [facility] [address], [address] [place] [address] Emerson Sanchez MD [address] [place] [address] documented as of this encounter Visit Diagnoses Not on filedocumented in this encounter Care Teams Assistant Office Manager Relationship Specialty Start Date End Date Cristal Arroyo NP [address] [place] [address] PCP - General Nurse Practitioner 05/01/24 documented as of this encounter Additional Source Comments The information contained in this document represents components of the legal health record. It is not the complete legal health record.[facility]
--- OUTSIDE RECORDS SUMMARY | 2025-07-01 17:19 | XMS_ITS | Encounter Summary ---
Author Organization [facility] Address [address] [place] [address] Phone Care Team Providers Care Learning Developer Name Role Phone Sulaiman Chan Primary Care Provid er Sulaiman Chan Primary Care Provid er Cristal Arroyo NP Primary Care Provid er Reason for Referral * Outpatient Procedure - Closed Specialty Diagnoses / Procedures Referred By Chava tee Referred To Contact Radiology Diagnoses Nausea Poor appetite Constipation, unspecified constipation type Procedures NM Gastric Emptying Meenu Ferrell PA-C Phone: tel: fax: [email or web address] Referral ID Status Reason Start Date Expiration Date Visits Re quested Visits Authorized [id number] Closed 08/27/2021 03/12/2022 1 1 Encounter Details Date Type Department Care Team (Latest Contact Info) Description 09/15/2021 Transcribe Orders Virtual Department [address] [place] [address] Meenu Ferrell PA-C [address] [place] [address] [email or web address] Nausea (Primary Dx); Poor appetite; Constipation, unspecified constipation type Social History Tobacco Use Types Packs/Day Years [...] Description 07/22/2025 1:00 PM EDT Nurse Only [facility] [address], [address] [place] [address] Emerson Sanchez MD [address] [place] [address] 08/26/2025 3:20 PM EST Office Visit [facility] [place] [address] [address], [address] [place] [address] mEerson Sanchez MD [address] [place] [address] documented as of this encounter Results * NM GASTRIC EMPTYING SOLID PHASE (09/27/2021 1:28 PM EST) Anatomical Region Laterality Modality Abdomen, Pelvis Nuclear Medicine 09/27/2021 1:29 PM EST Impressions 09/27/2021 1:31 PM EST Rapid gastric emptying between the first and second hour of doubtful significance. Otherwise normal gastric emptying study. POS - [id number] Narrative 09/27/2021 1:31 PM EST Following oral administration of 0.981 mCi of Tc99m labeled sulfur colloid in a standardized meal (of which the patient ate approximately three quarters), imaging of the upper abdomen was performed at one hour, two hours and four hours. At one hour 41% of activity is still present in the stomach (normal 37-90%) At two hours 8.3% of activity is still present in the stomach (normal 30-60%) At four hours is 2.4% of activity is still present in the stomach (normal 0-10%) Procedure Note Emerson Maya MD - 09/27/2021 Following oral administration of 0.981 mCi of Tc99m labeled sulfur colloidin a standardized meal (of which the patient ate approximately threequarters), imaging of the upper abdomen was performed at one hour, twohours and four hours. At one hour 41% of activity is still present in the stomach ([id number]%) At two hours 8.3% of activity is still present in the stomach ([id number]%) At four hours is 2.4% of activity is still present in the stomach (normal0-10%) IMPRESSION: Rapid gastric emptying between the first and second hour of doubtfulsignificance. Otherwise normal gastric emptying study. POS - [id number] Meenu Ferrell PA-C IMG NM ABDOMEN Final Result documented in this encounter Visit Diagnoses Diagnosis Nausea- Primary Nausea alone Poor appetite Anorexia Constipation, unspecified constipation type Nausea Nausea alone Poor appetite Anorexia Constipation, unspecified constipation type documented in this encounter Additional Health Concerns Infection Onset Date Last Indicated Resolved Time CoV-Risk Comment:Neg covid 05/01/2024 05/01/2024 05/02/2024 11:55 AM EDT documented as of this encounter Care Teams Learning Developer Relationship Specialty Start Date End Date Sulaiman Chan PA PCP - General 08/03/18 03/05/24 Sulaiman Chan PA [address] [place] [phone] PCP - General Physician Cloth Neutralizer 03/06/24 04/30/24 Cristal Arroyo NP [address] [place] [address] PCP - General Nurse Practitioner 05/01/24 documented as of this encounter Additional Source Comments The information contained in this document represents components of the legal health record. It is not the complete legal health record.[facility]
== END 2025-07-01 13:23 | disposition home or self-care (01) ==
LOC: HO.LAB 13:22
PROVIDERS: PCP Nurse Practitioner Family; Visit Provider Internal Medicine
DX: I49.5 Sick sinus syndrome (principal)
CPT/HCPCS: 36415; 80048; 85025; 85610